=== PATIENT | male | born 1950 | race Caucasian/White ===

== ENCOUNTER 2021-02-19 10:57 | Outpatient (REF) | payer MEDICARE, SELFPAY ==
[2021-02-19 13:13] LABS: Erythrocyte Sedimentation Rate 6 MM/HR (0-15)
[2021-02-19 13:34] LABS: T4 Thyroxine 5.5 ug/dL (4.5-12.0); Thyroid Stimulating Hormone 2.41 uIU/mL (0.32-4.0)
[2021-02-24 17:02] LABS: Acetylcholine Recep Modulating 11
[2021-02-24 18:17] LABS: Acetylcholine Receptor Binding <0.30 nmol/L
== END 2021-02-19 10:58 | disposition home or self-care (01) ==
LOC: HO.LAB 10:57
PROVIDERS: PCP Internal Medicine; Visit Provider Psychiatry & Neurology Neurology
DX: H02.409 Unspecified ptosis of unspecified eyelid (principal)
CPT/HCPCS: 36415; 82550; 83519; 84436; 84443; 85652

== ENCOUNTER 2022-01-23 15:32 | Outpatient (REF) | payer MEDICARE, SELFPAY ==
[2022-01-23 18:14] LABS: Alanine Aminotransferase 20 U/L (0-40); Albumin Level 3.7 g/dL (3.5-5.0); Alkaline Phosphatase 83 U/L (39-117); Anion Gap 12 (12-20); Aspartate Amino Transferase 19 U/L (5-37); Bilirubin Direct 0.2 mg/dL (0.0-0.5); Bilirubin Total 0.4 mg/dL (0.0-1.0); Blood Urea Nitrogen 23 mg/dL (9-16); Calcium 9.1 mg/dL (8.4-10.2); Carbon Dioxide 28 mmol/L (22-29); Chloride 105 mmol/L (96-108); Estimated Glomerular Filt Rate > 60; Glucose Random 149 mg/dL (60-115); Potassium 4.2 mmol/L (3.3-5.1); Sodium 141 mmol/L (135-145); Total Protein 6.9 g/dL (6.5-8.0)
== END 2022-01-23 15:33 | disposition home or self-care (01) ==
LOC: HO.MANLDS 15:32
PROVIDERS: PCP Physician Assistant; Visit Provider Physician Assistant
DX: R17 Unspecified jaundice (principal)
CPT/HCPCS: 36415; 80053; 82248

== ENCOUNTER 2022-03-20 12:03 | Outpatient (REF) | payer MEDICARE, SELFPAY ==
[2022-03-20 12:51] LABS: Hematocrit 38.3 % (42.0-52.0); Hemoglobin 12.4 g/dl (14.0-18.0); Mean Corpuscular HGB Conc 32.4 g/dl (31.0-36.0); Mean Corpuscular Hemoglobin 27.8 pg (27.0-33.0); Mean Corpuscular Volume 85.9 fL (80.0-98.0); Mean Platelet Volume 9.5 fL (9.4-12.4); Platelet Count 231 X10*3/uL (160-400); Red Blood Count 4.46 X10*6/uL (4.60-5.80); Red Cell Distribution Width 15.5 % (11.0-16.0); White Blood Count 5.8 X10*3/uL (4.8-10.8)
[2022-03-20 13:20] LABS: Estimated Average Glucose 171 mg/dL; Hemoglobin A1c % 7.6 %
[2022-03-20 13:58] LABS: Alanine Aminotransferase 20 U/L (0-40); Alkaline Phosphatase 79 U/L (39-117); Anion Gap 14 (12-20); Aspartate Amino Transferase 20 U/L (5-37); Bilirubin Total 0.3 mg/dL (0.0-1.0); Blood Urea Nitrogen 32 mg/dL (9-16); Calcium 9.9 mg/dL (8.4-10.2); Carbon Dioxide 23 mmol/L (22-29); Chloride 105 mmol/L (96-108); Estimated Glomerular Filt Rate > 60; Glucose Random 133 mg/dL (60-115); Potassium 4.4 mmol/L (3.3-5.1); Sodium 138 mmol/L (135-145); Total Protein 7.1 g/dL (6.5-8.0)
[2022-03-20 14:38] LABS: Erythrocyte Sedimentation Rate 48 MM/HR (0-15)
== END 2022-03-20 12:04 | disposition home or self-care (01) ==
LOC: HO.MANLDS 12:03
PROVIDERS: PCP Internal Medicine; Visit Provider Internal Medicine
DX: E11.9 Type 2 diabetes mellitus without complications (principal); I10 Essential (primary) hypertension
CPT/HCPCS: 36415; 80053; 83036; 85027; 85652

== ENCOUNTER → 2022-04-27 08:24 | Outpatient (REF) | payer MEDICARE, SELFPAY ==
--- NOTE | 2022-04-27 08:30 | CA_ITS ---
Transthoracic Echocardiogram Amended Patient (Last, First, Middle): Stephane Guerrero, Gender: Male Date of : 1950 Age: 71 Procedure Date: 04/27/2022 Procedure Type: Transthoracic Echocardiogram Location: OP Height: 185.42 cm Weight: 136.08 kg BSA: 2.56 m2 Heart Rate: bpm BP: 138 / 80 mmHg Swedish Masseuse: ALMAZ Referring MD: Mandi SNOW Community Outreach Specialist: Mac Irizarry MD Symptoms: R01.1 MURMUR Study Quality: Adequate ECG Rhythm: Sinus Conclusions: - 1. Normal LV systolic function with moderate LVH with pseudonormal filling pattern 2. Mildly dilated left atrium 3. Severe aortic stenosis valve area 0.9 centimeter sq 4. Normal RV systolic pressure 5. No gross pericardial effusion Findings Left Ventricle Normal left ventricular size and systolic function. There is moderately increased left ventricular wall thickness. The visually estimated ejection fraction is between 60-65%. Spectral Doppler is indicative of a pseudonormal filling pattern. E/E prime ratio is between 8 and 15 consistent with indeterminate filling pressures. Right Ventricle Normal right ventricular cavity size and systolic function. Atria The left atrium is mildly dilated. There is lipomatous hypertrophy of the interatrial septum. There is no evidence of interatrial shunt. The right atrium is normal in size. Aortic Valve There is moderate calcification of the aortic valve. There is moderate thickening of the aortic valve. There is severe aortic valve stenosis. The mean gradient is 42 mmHg. The aortic valve area is 0.90 cm2. There is no aortic valve regurgitation. Calculated mean gradient of 45 mmHg which is more suggestive of severe aortic stenosis. LVOT velocity measured is high, could be related to measurement close to the aortic valve leading to falsely elevated LVOT VTI and therefore underestimated severity of aortic stenosis. Other possible reason could be high output state, of unclear etiology Mitral Valve There is mild anterior and posterior mitral leaflet thickening. There is trace mitral valve regurgitation. There is no mitral valve stenosis. Pulmonic Valve The pulmonic valve was not well visualized. Tricuspid Valve Normal tricuspid valve structure. There is trace tricuspid valve regurgitation. The right ventricular systolic pressure is normal. The right ventricular systolic pressure is 23 mmHg. Normal right atrial pressure. There is no evidence of pulmonary hypertension. Great Vessels All visible segments of the aorta are normal in size. The pulmonary artery was not well visualized. Venous The inferior vena cava is normal in size and collapses greater than 50% with inspiration. Pericardium/Pleural There is no evidence of pericardial effusion. Measurements 2D Linear Measurements IVSd: 1.52 0.6-0.9/0.6-1.0 cm LVIDd: 5.80 3.9-5.3/4.2-5.9 cm LVIDd Index: 2.27 2.4-3.2/2.2-3.1 cm/m2 LVIDs: 3.75 2.0-3.6 cm LVPWd: 1.41 0.7-1.1 cm Ao Root: 3.90 2.1-3.5 cm LA Diam: 4.40 2.7-3.8/3.0-4.0 cm LAIDs Index: 1.72 1.5-2.3 cm/m2 LV Mass: 489.04 67-162/88-224 g LV Mass Index: 191.03 43-95/49-115 g/m2 LVOT Diam: 2.00 3.0+(-)1.3 cm 2D Volumes LA Vol: 35.50 Mitral Valve MV Pk E: 1.20 MV PK A: 0.81 MV Decel Time: 161.00 E/A: 1.50 E'Lateral: 4.24 E'Medial: 4.57 E/E' Med: 26.30 E/E' Lat: 28.30 PHT: 47.00 MVA PHT: 4.68 Decel [place]: 7.46 Aortic Valve AoV Pk Chuck: 4.44 AoV Mn Chuck: 3.05 AoV VTI: 1.06 AoV Pk Grad: 79.00 Aov Mn Grad: 42.00 SHERRY Cont.VTI: 0.90 LVOT LVOT Pk Chuck: 1.36 LVOT Mn Chuck: 0.99 LVOT VTI: 0.38 LVOT Pk Grad: 7.00 LVOT Mn Grad: 4.00 LVOT Diam: 2.00 LVOT Area: 3.80 Diastolic Function MV Pk E: 1.20 MV Pk A: 0.81 E/A: 1.50 E'Medial: 4.57 E/E' Med: 26.30 E' Laterial: 4.24 E/E' Lat: 28.30 Right Ventricle TAPSE (mm): 30.00 TVS' Chuck: 14.00 Tricuspid Valve TR Pk Chuck: 2.22 TR Pk Grad: 20.00 RA Press: 3.00 RVSP: 23.00 Great Vessels Aorta Ao Root-2D: 3.90 2.0-3.7 cm Ao Asc: 3.60 2.1-3.4 cm Pulmonary Valve PV Pk Chuck: 1.10 Peak PV Grad: 5.00 Updated in Other Vendor System with Status of Final Mac Irizarry MD electronically signed on 04/29/2022 8:34:07 AM with status of Final
== END ==
LOC: HO.CARD 08:24
PROVIDERS: Visit Provider Physician Assistant
DX: R01.1 Cardiac murmur, unspecified (principal)
CPT/HCPCS: 93306

== ENCOUNTER 2022-05-01 14:34 | Outpatient (REF) | payer MEDICARE, SELFPAY ==
[2022-05-01 16:29] LABS: Hematocrit 35.7 % (42.0-52.0); Hemoglobin 11.7 g/dl (14.0-18.0); Mean Corpuscular HGB Conc 32.8 g/dl (31.0-36.0); Mean Corpuscular Hemoglobin 27.9 pg (27.0-33.0); Mean Platelet Volume 9.1 fL (9.4-12.4); Platelet Count 218 X10*3/uL (160-400); Red Cell Distribution Width 15.9 % (11.0-16.0); White Blood Count 7.3 X10*3/uL (4.8-10.8)
[2022-05-01 16:59] LABS: Anion Gap 12 (12-20); Blood Urea Nitrogen 24 mg/dL (9-16); Calcium 9.5 mg/dL (8.4-10.2); Carbon Dioxide 25 mmol/L (22-29); Chloride 107 mmol/L (96-108); Estimated Glomerular Filt Rate > 60; Glucose Random 83 mg/dL (60-115); Potassium 4.4 mmol/L (3.3-5.1); Sodium 140 mmol/L (135-145)
[2022-05-01 17:02] LABS: INTERNATIONAL NORM RATIO 1.1 (0.9-1.1); Prothrombin Time 12.4 SEC (9.9-13.0)
== END 2022-05-01 14:35 | disposition home or self-care (01) ==
LOC: HO.LAB 14:34
PROVIDERS: PCP Internal Medicine; Visit Provider Internal Medicine Cardiovascular Disease
DX: I35.0 Nonrheumatic aortic (valve) stenosis (principal)
CPT/HCPCS: 36415; 80048; 85027; 85610; 93005; 99202

== ENCOUNTER 2022-05-16 14:56 | Outpatient (REF) | payer MEDICARE, SELFPAY ==
[2022-05-16 15:56] LABS: Anion Gap 12 (12-20); Blood Urea Nitrogen 38 mg/dL (9-16); Calcium 9.7 mg/dL (8.4-10.2); Carbon Dioxide 26 mmol/L (22-29); Chloride 106 mmol/L (96-108); Estimated Glomerular Filt Rate > 60; Glucose Random 108 mg/dL (60-115); Potassium 4.4 mmol/L (3.3-5.1); Sodium 140 mmol/L (135-145)
[2022-05-16 16:03] LABS: B Type Natriuretic Peptide 95 pg/mL (<100)
== END 2022-05-16 14:57 | disposition home or self-care (01) ==
LOC: HO.LAB 14:56
PROVIDERS: PCP Internal Medicine; Visit Provider Nurse Practitioner Family
DX: I35.0 Nonrheumatic aortic (valve) stenosis (principal); I10 Essential (primary) hypertension; I25.10 Atherosclerotic heart disease of native coronary artery without angina pectoris; R06.02 Shortness of breath; Z98.890 Other specified postprocedural states
CPT/HCPCS: 36415; 80048; 83880; 99212

== ENCOUNTER 2022-07-30 11:17 | Outpatient (REF) | payer MEDICARE, SELFPAY ==
[2022-07-30 14:35] LABS: Alanine Aminotransferase 23 U/L (0-40); Albumin Level 3.8 g/dL (3.5-5.0); Alkaline Phosphatase 102 U/L (39-117); Anion Gap 16 (12-20); Aspartate Amino Transferase 17 U/L (5-37); Bilirubin Total 0.4 mg/dL (0.0-1.0); Blood Urea Nitrogen 51 mg/dL (9-16); Calcium 9.1 mg/dL (8.4-10.2); Carbon Dioxide 25 mmol/L (22-29); Chloride 101 mmol/L (96-108); Estimated Glomerular Filt Rate 40; Glucose Random 126 mg/dL (60-115); Potassium 4.9 mmol/L (3.3-5.1); Sodium 137 mmol/L (135-145); Total Protein 6.9 g/dL (6.5-8.0)
== END 2022-07-30 11:18 | disposition home or self-care (01) ==
LOC: HO.MANLDS 11:17
PROVIDERS: Visit Provider Internal Medicine
DX: I50.9 Heart failure, unspecified (principal)
CPT/HCPCS: 36415; 80053

== ENCOUNTER → 2022-08-20 08:31 | Outpatient (BNVA) | payer MEDICARE, SELFPAY | PROVIDERS: PCP Internal Medicine; Visit Provider Internal Medicine Cardiovascular Disease | DX: I35.0 Nonrheumatic aortic (valve) stenosis (principal); I50.20 Unspecified systolic (congestive) heart failure; I25.5 Ischemic cardiomyopathy; I25.10 Atherosclerotic heart disease of native coronary artery without angina pectoris; I25.2 Old myocardial infarction; Z95.810 Presence of automatic (implantable) cardiac defibrillator; Z79.899 Other long term (current) drug therapy | CPT/HCPCS: 99212 ==

== ENCOUNTER → 2022-10-10 14:48 | Outpatient (REF) | payer MEDICARE, SELFPAY ==
--- NOTE | 2022-10-10 14:54 | CA_ITS ---
Transthoracic Echocardiogram Patient (Last, First, Middle): Stephane Guerrero, Gender: Male Date of : 1950 Age: 72 Procedure Date: 10/10/2022 Procedure Type: Transthoracic Echocardiogram Location: OP Height: 185.42 cm Weight: 129.28 kg BSA: 2.50 m2 Heart Rate: bpm BP: 132 / 75 mmHg Sterilization Specialist: KIANNA Referring MD: Mac Irizarry MD Lacing Cutter: Mac Irizarry MD Symptoms: I25.10 - Atherosclerotic heart disease of [place] coronary artery without... Study Quality: Fair ECG Rhythm: Sinus Conclusions: - 1. Severe LV systolic dysfunction with LVEF of 15-20% with grade 3 diastolic dysfunction with regional wall motion abnormality consistent with ischemic cardiomyopathy 2. Normally function bioprosthetic aortic valve in place 3. Mildly elevated right went systolic pressure with significantly elevated right atrial pressures 4. No gross pericardial effusion Findings Procedure Information Contrast agent, definity, is being given per protocol without apparent complications. Left Ventricle Moderately increased left ventricular cavity size. There is mildly increased left ventricular wall thickness. The left ventricular systolic function is severely decreased. The visually estimated ejection fraction is between 15 20%. Spectral Doppler is indicative of a restrictive filling pattern. E/E prime ratio is >15, consistent with elevated filling pressures. Evidence suggests grade III (severe) diastolic dysfunction. Wall Motion Rest Echo Findings The basal inferoseptal segment is hypokinetic. The apical anterior, apical inferior, apical lateral, apical septum, mid inferoseptal, and mid anteroseptal segments are akinetic. The apex segment is dyskinetic. All other scored wall segments showed normal motion. Right Ventricle Normal right ventricular cavity size and systolic function. There is an ICD wire seen in the right ventricle. Atria The left atrium is mildly dilated. Interatrial shunt cannot be excluded. The right atrium is normal in size. Aortic Valve A bioprosthetic aortic valve is present. The prosthetic aortic valve appears to be functioning normally. The mean gradient is 9 mmHg. There is mild aortic valve regurgitation. Mitral Valve There is mild anterior and posterior mitral leaflet thickening. There is mild mitral annular calcification. There is mild mitral valve regurgitation. There is no mitral valve stenosis. Pulmonic Valve The pulmonic valve was not well visualized. Tricuspid Valve Likely normal tricuspid valve structure and function. There is mild tricuspid valve regurgitation. Significantly elevated right atrial pressure. Mild pulmonary hypertension is present. Great Vessels All visible segments of the aorta are normal in size. The pulmonary artery was not well visualized. Venous The inferior vena cava is moderately dilated and collapses less than 50% with inspiration. Pericardium/Pleural There is no evidence of pericardial effusion. Prior Study Comparison Significant changes compared to prior study dated: 04/27/2022. severely reduced LV ejection fraction at 15-20% with grade 3 diastolic dysfunction. Bioprosthetic aortic valve in place Measurements 2D Linear Measurements IVSd: 1.30 0.6-0.9/0.6-1.0 cm LVIDd: 6.33 3.9-5.3/4.2-5.9 cm LVIDd Index: 2.53 2.4-3.2/2.2-3.1 cm/m2 LVIDs: 4.58 2.0-3.6 cm LVPWd: 1.24 0.7-1.1 cm LA Diam: 4.30 2.7-3.8/3.0-4.0 cm LAIDs Index: 1.72 1.5-2.3 cm/m2 LV Mass: 462.00 67-162/88-224 g LV Mass Index: 184.80 43-95/49-115 g/m2 LVOT Diam: 2.00 3.0+(-)1.3 cm 2D Systolic Function EF 4C: 13.20 >55% EF 2C: 18.80 >55% EF BiP: 16.50 >55% Mitral Valve MV Pk E: 1.41 MV PK A: 0.51 MV Decel Time: 167.00 E/A: 2.80 E'Lateral: 6.45 E'Medial: 4.43 E/E' Med: 31.80 E/E' Lat: 21.90 PHT: 49.00 MVA PHT: 4.49 Decel [place]: 8.44 Aortic Valve AoV Pk Chuck: 1.99 AoV Mn Chuck: 1.36 AoV VTI: 0.45 AoV Pk Grad: 16.00 Aov Mn Grad: 9.00 SHERRY Cont.VTI: 1.81 LVOT LVOT Pk Chuck: 1.13 LVOT Mn Chuck: 0.77 LVOT VTI: 0.26 LVOT Pk Grad: 5.00 LVOT Mn Grad: 3.00 LVOT Diam: 2.00 LVOT Area: 3.14 Diastolic Function MV Pk E: 1.41 MV Pk A: 0.51 E/A: 2.80 E'Medial: 4.43 E/E' Med: 31.80 E' Laterial: 6.45 E/E' Lat: 21.90 Right Ventricle TAPSE (mm): 19.00 TVS' Chuck: 9.00 Tricuspid Valve TR Pk Chuck: 2.65 TR Pk Grad: 28.00 RA Press: 15.00 RVSP: 43.00 Updated in Other Vendor System with Status of Final Mac Irizarry MD electronically signed on 10/11/2022 4:56:29 PM with status of Final
== END ==
LOC: HO.CARD 14:48
PROVIDERS: Visit Provider Internal Medicine Cardiovascular Disease
DX: I25.10 Atherosclerotic heart disease of native coronary artery without angina pectoris (principal)
CPT/HCPCS: 93306; Q9957

== ENCOUNTER → 2022-11-13 13:08 | Outpatient (BNVA) | payer MEDICARE, SELFPAY | PROVIDERS: PCP Internal Medicine; Visit Provider Internal Medicine Cardiovascular Disease | DX: I25.10 Atherosclerotic heart disease of native coronary artery without angina pectoris (principal); I50.20 Unspecified systolic (congestive) heart failure; Z95.2 Presence of prosthetic heart valve; I25.2 Old myocardial infarction; Z79.02 Long term (current) use of antithrombotics/antiplatelets; Z79.899 Other long term (current) drug therapy; Z45.02 Encounter for adjustment and management of automatic implantable cardiac defibrillator | CPT/HCPCS: 99212 ==

== ENCOUNTER → 2023-05-12 14:26 | Outpatient (BNVA) | payer MEDICARE, SELFPAY | PROVIDERS: PCP Internal Medicine; Referring Provider Internal Medicine; Visit Provider Internal Medicine Cardiovascular Disease | DX: I50.20 Unspecified systolic (congestive) heart failure (principal); I48.0 Paroxysmal atrial fibrillation; I25.10 Atherosclerotic heart disease of native coronary artery without angina pectoris; I11.0 Hypertensive heart disease with heart failure; E13.9 Other specified diabetes mellitus without complications; Z95.5 Presence of coronary angioplasty implant and graft; Z79.4 Long term (current) use of insulin; Z95.810 Presence of automatic (implantable) cardiac defibrillator | CPT/HCPCS: 93005; 99212 ==

== ENCOUNTER → 2023-08-18 23:59 | Outpatient (BNV) | payer MEDICARE, SELFPAY ==
--- NOTE | 2023-08-18 15:38 | MHC.OFFVIS ---
Intake Intake Visit Reasons: Remote ICD check- [employer] Allergies No Known Allergies Allergy (Verified 05/12/23 15:06) [facility] Medical History Aortic stenosis CAD (coronary artery disease) Diabetes 1.5, managed as type 1 HTN (hypertension) ICD (implantable cardioverter-defibrillator) in place Ischemic cardiomyopathy Paroxysmal atrial fibrillation Surgical History History of ankle surgery S/P cardiac cath Status post transcatheter aortic valve replacement Stented coronary artery Family History Father Pacemaker Mother Diabetes Social History Patient Tobacco Use Status: Former Tobacco user Quit Date: 30 years ago Office Procedures Cardiac Device Check Cardiac Device Check Details: Remote ICD function report generated 08/18/2023. ICD function is adequate [id number] Cardiac Interrogation, implant defibrillator w/interim Procedure code (CPT) selection complete Coding Level of Care Code Procedure Only CPT Codes Cardiac Device Check - Cardiac Device 13: [id number] Cardiac Interrogation, implant defibrillator w/interim ([id number])
== END ==
PROVIDERS: PCP Internal Medicine; Visit Provider Internal Medicine Cardiovascular Disease
DX: I25.5 Ischemic cardiomyopathy (principal); Z95.810 Presence of automatic (implantable) cardiac defibrillator
CPT/HCPCS: 93295

== ENCOUNTER → 2023-08-18 23:59 | Outpatient (BNV) | payer MEDICARE, SELFPAY ==
--- NOTE | 2023-08-18 15:39 | MHC.OFFVIS ---
Intake Intake Visit Reasons: Remote HF monitoring- [employer] Allergies No Known Allergies Allergy (Verified 05/12/23 15:06) [facility] Medical History Aortic stenosis CAD (coronary artery disease) Diabetes 1.5, managed as type 1 HTN (hypertension) ICD (implantable cardioverter-defibrillator) in place Ischemic cardiomyopathy Paroxysmal atrial fibrillation Surgical History History of ankle surgery S/P cardiac cath Status post transcatheter aortic valve replacement Stented coronary artery Family History Father Pacemaker Mother Diabetes Social History Patient Tobacco Use Status: Former Tobacco user Quit Date: 30 years ago Office Procedures Cardiac Device Check Cardiac Device Check Details: Remote heart failure report generated 08/18/2023. Heart failure parameters are stable [id number] Cardiac Device Interrogation, cardio physiologic monitor Procedure code (CPT) selection complete Coding Level of Care Code Procedure Only CPT Codes Cardiac Device Check - Cardiac Device 15: [id number] Cardiac Device Interrogation, cardio physiologic monitor ([id number])
== END ==
PROVIDERS: PCP Internal Medicine; Visit Provider Internal Medicine Cardiovascular Disease
DX: I50.20 Unspecified systolic (congestive) heart failure (principal); Z95.810 Presence of automatic (implantable) cardiac defibrillator
CPT/HCPCS: 93297

== ENCOUNTER → 2023-09-30 13:02 | Outpatient (REF) | payer MEDICARE, SELFPAY ==
--- NOTE | 2023-09-30 13:04 | CA_ITS ---
Transthoracic Echocardiogram Patient (Last, First, Middle): Stephane Guerrero, Gender: Male Date of : 1950 Age: 73 Procedure Date: 09/30/2023 Procedure Type: Transthoracic Echocardiogram Location: OP Height: 185.42 cm Weight: 145.15 kg BSA: 2.63 m2 Heart Rate: 69 bpm BP: 125 / 70 mmHg Billing Supervisor: JULIA Referring MD: Mac Irizarry MD Digital Camera Technician: Mac Irizarry MD Symptoms: Z95.2 - Presence of prosthetic heart valve Study Quality: Technically Difficult/w Contrast ECG Rhythm: Sinus Conclusions: - 1. Mildly dilated left ventricle with [id number] LV systolic dysfunction with grade 2 diastolic dysfunction with presence of LV apical thrombus 2. Normally function bioprosthetic aortic valve with mean gradient of 16 mmHg 3. Mildly dilated ascending aorta 3.9 cm Findings Procedure Information Contrast agent, definity, is being given per protocol without apparent complications. Left Ventricle Mildly increased left ventricular cavity size. There is moderately increased left ventricular wall thickness. The left ventricular systolic function is mild to moderately decreased. The visually estimated ejection fraction is between 40-45%. There is evidence of regional wall motion abnormalities. Spectral Doppler is indicative of a pseudonormal filling pattern. E/E prime ratio is >15, consistent with elevated filling pressures. Evidence suggests grade II (moderate) diastolic dysfunction. There is a moderate immobile apical thrombus in the left ventricle. The thrombus appears flat (mural) in shape. Wall Motion Rest Echo Findings The apex, apical anterior, mid anterior, apical lateral, apical septum, and mid anteroseptal segments are akinetic. All other scored wall segments showed normal motion. Right Ventricle The right ventricle was not well visualized. Atria The left atrium was not well visualized. Interatrial shunt cannot be excluded. The right atrium was not well visualized. Aortic Valve A bioprosthetic aortic valve is present. The prosthetic aortic valve appears to be functioning normally. The aortic valve was not well visualized. The mean gradient is 16 mmHg. There is no aortic valve regurgitation. Mitral Valve The mitral valve was not well visualized. There is moderate mitral annular calcification. There is no mitral valve stenosis. Pulmonic Valve The pulmonic valve was not well visualized. Tricuspid Valve The tricuspid valve was not well visualized. Tricuspid regurgitation envelope is inadequate for calculation of right ventricular systolic pressure. Normal right atrial pressure. Great Vessels The pulmonary artery was not well visualized. There is mild dilatation of the ascending aorta. Venous The inferior vena cava is normal in size and collapses greater than 50% with inspiration. Pericardium/Pleural The pericardium was not well visualized. Prior Study Comparison Changes noted compared to prior study dated: 10/10/2022. LV systolic function has improved significantly Measurements 2D Linear Measurements IVSd: 1.32 0.6-0.9/0.6-1.0 cm LVIDd: 6.04 3.9-5.3/4.2-5.9 cm LVIDd Index: 2.30 2.4-3.2/2.2-3.1 cm/m2 LVIDs: 3.93 2.0-3.6 cm LVPWd: 1.42 0.7-1.1 cm LA Diam: 4.50 2.7-3.8/3.0-4.0 cm LAIDs Index: 1.71 1.5-2.3 cm/m2 LV Mass: 474.75 67-162/88-224 g LV Mass Index: 180.51 43-95/49-115 g/m2 LVOT Diam: 2.00 3.0+(-)1.3 cm 2D Systolic Function EF 4C: 49.40 >55% EF 2C: 32.60 >55% EF BiP: 41.40 >55% Mitral Valve MV Pk E: 0.97 MV PK A: 0.90 MV Decel Time: 225.00 E/A: 1.10 E'Lateral: 7.53 E'Medial: 6.13 E/E' Med: 15.90 E/E' Lat: 12.90 PHT: 66.00 MVA PHT: 3.33 Decel [place]: 4.31 Aortic Valve AoV Pk Chuck: 2.63 AoV Mn Chuck: 1.83 AoV VTI: 0.52 AoV Pk Grad: 28.00 Aov Mn Grad: 16.00 SHERRY Cont.VTI: 2.02 LVOT LVOT Pk Chuck: 1.64 LVOT Mn Chuck: 1.14 LVOT VTI: 0.33 LVOT Pk Grad: 11.00 LVOT Mn Grad: 6.00 LVOT Diam: 2.00 LVOT Area: 3.14 Diastolic Function MV Pk E: 0.97 MV Pk A: 0.90 E/A: 1.10 E'Medial: 6.13 E/E' Med: 15.90 E' Laterial: 7.53 E/E' Lat: 12.90 Right Ventricle TAPSE (mm): 19.50 TVS' Chuck: 11.90 Tricuspid Valve RA Press: 3.00 Great Vessels Aorta Sinus of Valsalva: 4.10 2.0-3.5 cm Ao Asc: 3.90 2.1-3.4 cm Pulmonary Valve PV Pk Chuck: 1.52 Peak PV Grad: 9.00 Updated in Other Vendor System with Status of Final Mac Irizarry MD electronically signed on 10/01/2023 3:21:53 PM with status of Final
== END ==
LOC: HO.CARD 13:02
PROVIDERS: PCP Internal Medicine; Visit Provider Internal Medicine Cardiovascular Disease
DX: I48.0 Paroxysmal atrial fibrillation (principal); I50.20 Unspecified systolic (congestive) heart failure; Z95.2 Presence of prosthetic heart valve
CPT/HCPCS: 93306; Q9957

== ENCOUNTER → 2023-09-30 13:04 | Outpatient (BNV) | payer MEDICARE, SELFPAY | PROVIDERS: PCP Internal Medicine; Visit Provider Internal Medicine Cardiovascular Disease | DX: I48.0 Paroxysmal atrial fibrillation (principal); I34.81 Nonrheumatic mitral (valve) annulus calcification | CPT/HCPCS: 93306 ==

== ENCOUNTER → 2023-10-13 23:59 | Outpatient (BNV) | payer MEDICARE, SELFPAY ==
--- NOTE | 2023-10-14 15:01 | MHC.OFFVIS ---
Intake Intake Visit Reasons: Remote HF Monitoring- [employer] Allergies No Known Allergies Allergy (Verified 05/12/23 15:06) [facility] Medical History Aortic stenosis CAD (coronary artery disease) Diabetes 1.5, managed as type 1 HTN (hypertension) ICD (implantable cardioverter-defibrillator) in place Ischemic cardiomyopathy Paroxysmal atrial fibrillation Surgical History History of ankle surgery S/P cardiac cath Status post transcatheter aortic valve replacement Stented coronary artery Family History Father Pacemaker Mother Diabetes Patient Tobacco Use Status: Former Tobacco user Quit Date: 30 years ago Office Procedures Cardiac Device Check Cardiac Device Check Details: Remote heart failure report generated 10/12/2023. Heart failure parameters shows elevated heart logic consistent with fluid buildup. Will follow-up with patient with diuretic therapy. [id number] Cardiac Interrogation, subcut cardiac rhythm monitor Procedure code (CPT) selection complete Coding Level of Care Code Procedure Only CPT Codes Cardiac Device Check - Cardiac Device 16: [id number] Cardiac Interrogation, subcut cardiac rhythm monitor ([id number])
== END ==
PROVIDERS: PCP Internal Medicine; Visit Provider Internal Medicine Cardiovascular Disease
DX: I50.20 Unspecified systolic (congestive) heart failure (principal); Z95.810 Presence of automatic (implantable) cardiac defibrillator
CPT/HCPCS: 93297

== ENCOUNTER → 2023-12-20 23:59 | Outpatient (BNV) | payer MEDICARE, SELFPAY ==
--- NOTE | 2023-12-22 16:54 | MHC.OFFVIS ---
Intake Intake Visit Reasons: Remote HF Monitoring- [employer] Allergies No Known Allergies Allergy (Verified 05/12/23 15:06) [facility] Medical History Aortic stenosis CAD (coronary artery disease) Diabetes 1.5, managed as type 1 HTN (hypertension) ICD (implantable cardioverter-defibrillator) in place Ischemic cardiomyopathy Paroxysmal atrial fibrillation Surgical History History of ankle surgery S/P cardiac cath Status post transcatheter aortic valve replacement Stented coronary artery Family History Father Pacemaker Mother Diabetes Social History Patient Tobacco Use Status: Former Tobacco user Quit Date: 30 years ago Office Procedures Cardiac Device Check Cardiac Device Check Details: Remote heart failure report generated 12/20/2023. Heart failure parameters are stable [id number] Cardiac Device Interrogation, cardio physiologic monitor Procedure code (CPT) selection complete Assessment & Plan Assessment & Plan (1) ICD (implantable cardioverter-defibrillator) in place: Comment: [employer] ICD in place for what appears to be heart block has reduced ejection fraction. Code(s): Z95.810 - Presence of automatic (implantable) cardiac defibrillator Plan: See above Coding Level of Care Code Procedure Only Diagnoses ICD (implantable cardioverter-defibrillator) in place Z95.810 CPT Codes Cardiac Device Check - Cardiac Device 15: [id number] Cardiac Device Interrogation, cardio physiologic monitor ([id number])
== END ==
PROVIDERS: PCP Internal Medicine; Visit Provider Internal Medicine Cardiovascular Disease
DX: I25.5 Ischemic cardiomyopathy (principal); Z95.810 Presence of automatic (implantable) cardiac defibrillator
CPT/HCPCS: 93297

== ENCOUNTER → 2024-02-24 23:59 | Outpatient (BNV) | payer MEDICARE, SELFPAY ==
--- NOTE | 2024-02-26 14:40 | A.OFFVIS_ITS ---
Intake Intake Visit Reasons: REmote HF monitoring- [employer] Allergies No Known Allergies Allergy (Verified 05/12/23 15:06) [facility] Medical History Aortic stenosis CAD (coronary artery disease) Diabetes 1.5, managed as type 1 HTN (hypertension) ICD (implantable cardioverter-defibrillator) in place Ischemic cardiomyopathy Paroxysmal atrial fibrillation Surgical History History of ankle surgery S/P cardiac cath Status post transcatheter aortic valve replacement Stented coronary artery Family History Father Pacemaker Mother Diabetes Social History Patient Tobacco Use Status: Former Tobacco user Quit Date: 30 years ago Office Procedures Cardiac Device Check Cardiac Device Check Details: Remote heart failure report generated 02/24/2024. Heart failure parameters are within normal limits [id number] Cardiac Device Interrogation, cardio physiologic monitor Procedure code (CPT) selection complete Assessment & Plan Assessment & Plan (1) ICD (implantable cardioverter-defibrillator) in place: Comment: [employer] ICD in place for what appears to be heart block has reduced ejection fraction. Code(s): Z95.810 - Presence of automatic (implantable) cardiac defibrillator Plan: See above Coding Level of Care Code Procedure Only Diagnoses ICD (implantable cardioverter-defibrillator) in place Z95.810 CPT Codes Cardiac Device Check - Cardiac Device 15: [id number] Cardiac Device Interrogation, cardio physiologic monitor ([id number])
== END ==
PROVIDERS: PCP Internal Medicine; Visit Provider Internal Medicine Cardiovascular Disease
DX: Z45.02 Encounter for adjustment and management of automatic implantable cardiac defibrillator (principal)
CPT/HCPCS: 93297

== ENCOUNTER → 2024-02-24 23:59 | Outpatient (BNV) | payer MEDICARE, SELFPAY ==
--- NOTE | 2024-02-26 14:39 | MHC.OFFVIS ---
Intake Intake Visit Reasons: Remote device chk- [employer] Allergies No Known Allergies Allergy (Verified 05/12/23 15:06) [facility] Medical History Aortic stenosis CAD (coronary artery disease) Diabetes 1.5, managed as type 1 HTN (hypertension) ICD (implantable cardioverter-defibrillator) in place Ischemic cardiomyopathy Paroxysmal atrial fibrillation Surgical History History of ankle surgery S/P cardiac cath Status post transcatheter aortic valve replacement Stented coronary artery Family History Father Pacemaker Mother Diabetes Social History Patient Tobacco Use Status: Former Tobacco user Quit Date: 30 years ago Office Procedures Cardiac Device Check Cardiac Device Check Details: Remote ICD report generated 02/24/2024. ICD function is adequate [id number] Cardiac Interrogation, implant defibrillator w/interim Procedure code (CPT) selection complete Assessment & Plan Assessment & Plan (1) ICD (implantable cardioverter-defibrillator) in place: Comment: [employer] ICD in place for what appears to be heart block has reduced ejection fraction. Code(s): Z95.810 - Presence of automatic (implantable) cardiac defibrillator Plan: See above Coding Level of Care Code Procedure Only Diagnoses ICD (implantable cardioverter-defibrillator) in place Z95.810 CPT Codes Cardiac Device Check - Cardiac Device 13: [id number] Cardiac Interrogation, implant defibrillator w/interim ([id number])
== END ==
PROVIDERS: PCP Internal Medicine; Visit Provider Internal Medicine Cardiovascular Disease
DX: Z45.02 Encounter for adjustment and management of automatic implantable cardiac defibrillator (principal)
CPT/HCPCS: 93295

== ENCOUNTER 2024-03-03 12:02 | Outpatient (REF) | payer MEDICARE, SELFPAY ==
[2024-03-03 17:45] LABS: MANUAL DIFF FLAG NO
[2024-03-03 17:53] LABS: Basophils Percent Auto 0.3 % (0-2); Eosinophils Absolute Auto 0.1 X10*3/uL (0.0-0.4); Eosinophils Percent Auto 1.3 % (0-4); Hematocrit 24.8 % (42.0-52.0); Hemoglobin 7.7 g/dl (14.0-18.0); Imm Gran Abs Auto 0.06 X10*3/uL (0.00-0.03); Imm Gran Pct Auto 0.8 % (0.0-0.4); Lymphocytes Absolute Auto 1.1 X10*3/uL (1.2-4.9); Lymphocytes Percent Auto 14.1 % (20-40); Mean Corpuscular Hemoglobin 28.1 pg (27.0-33.0); Mean Corpuscular Volume 90.5 fL (80.0-98.0); Mean Platelet Volume 8.8 fL (9.4-12.4); Monocytes Percent Auto 12.1 % (2-11); Neutrophils Absolute Auto 5.6 x10*3/uL (2.0-8.3); Neutrophils Percent Auto 71.4 % (45-73); Platelet Count 271 X10*3/uL (160-400); Red Blood Count 2.74 X10*6/uL (4.60-5.80); Red Cell Distribution Width 19.3 % (11.0-16.0); White Blood Count 7.9 X10*3/uL (4.8-10.8)
[2024-03-03 18:30] LABS: Alanine Aminotransferase 14 U/L (0-40); Albumin Level 3.6 g/dL (3.5-5.0); Alkaline Phosphatase 72 U/L (39-117); Anion Gap 14 (12-20); Aspartate Amino Transferase 18 U/L (5-37); Bilirubin Total 0.4 mg/dL (0.0-1.0); Blood Urea Nitrogen 63 mg/dL (9-16); C Reactive Protein 3.16 mg/dL (< or = 0.50); Calcium 9.8 mg/dL (8.4-10.2); Carbon Dioxide 30 mmol/L (22-29); Chloride 99 mmol/L (96-108); Estimated Glomerular Filt Rate 57; Glucose Random 195 mg/dL (60-115); Potassium 4.1 mmol/L (3.3-5.1); Sodium 139 mmol/L (135-145); Total Protein 7.7 g/dL (6.5-8.0)
[2024-03-03 18:42] LABS: Erythrocyte Sedimentation Rate 123 MM/HR (0-15)
== END 2024-03-03 12:03 | disposition home or self-care (01) ==
LOC: HO.MANLDS 12:02
PROVIDERS: Visit Provider Physician Assistant
DX: M86.31 Chronic multifocal osteomyelitis, shoulder (principal); E87.6 Hypokalemia
CPT/HCPCS: 36415; 80053; 85025; 85652; 86140

== ENCOUNTER → 2024-03-29 23:59 | Outpatient (BNV) | payer MEDICARE, SELFPAY ==
--- NOTE | 2024-03-31 16:09 | MHC.OFFVIS ---
Intake Visit Reasons: Remote HF monitoring0 [employer] Allergies No Known Allergies Allergy (Verified 05/12/23 15:06) [facility] Medical History Aortic stenosis CAD (coronary artery disease) Diabetes 1.5, managed as type 1 HTN (hypertension) ICD (implantable cardioverter-defibrillator) in place Ischemic cardiomyopathy Paroxysmal atrial fibrillation Surgical History History of ankle surgery S/P cardiac cath Status post transcatheter aortic valve replacement Stented coronary artery Family History Father Pacemaker Mother Diabetes Social History Patient Tobacco Use Status: Former Tobacco user Quit Date: 30 years ago Office Procedures Cardiac Device Check Cardiac Device Check Details: Remote heart failure report generated 03/29/2024. Heart failure parameters are stable [id number] Cardiac Device Interrogation, cardio physiologic monitor Procedure code (CPT) selection complete Assessment & Plan Assessment & Plan (1) ICD (implantable cardioverter-defibrillator) in place: Comment: [employer] ICD in place for what appears to be heart block has reduced ejection fraction. Code(s): Z95.810 - Presence of automatic (implantable) cardiac defibrillator Category: Medical Plan: See above Coding Level of Care Code Procedure Only Diagnoses ICD (implantable cardioverter-defibrillator) in place Z95.810 CPT Codes Cardiac Device Check - Cardiac Device 15: [id number] Cardiac Device Interrogation, cardio physiologic monitor ([id number])
== END ==
PROVIDERS: PCP Internal Medicine; Visit Provider Internal Medicine Cardiovascular Disease
DX: Z45.02 Encounter for adjustment and management of automatic implantable cardiac defibrillator (principal)
CPT/HCPCS: 93297

== ENCOUNTER 2024-08-09 13:12 | Outpatient (REF) | payer MEDICARE, SELFPAY ==
[2024-08-09 15:40] LABS: MANUAL DIFF FLAG NO
[2024-08-09 16:10] LABS: Basophils Percent Auto 0.2 % (0-2); Eosinophils Absolute Auto 0.1 X10*3/uL (0.0-0.4); Eosinophils Percent Auto 0.9 % (0-4); Hematocrit 24.6 % (42.0-52.0); Hemoglobin 7.4 g/dl (14.0-18.0); Imm Gran Abs Auto 0.05 X10*3/uL (0.00-0.03); Imm Gran Pct Auto 0.6 % (0.0-0.4); Lymphocytes Percent Auto 12.2 % (20-40); Mean Corpuscular HGB Conc 30.1 g/dl (31.0-36.0); Mean Corpuscular Hemoglobin 25.3 pg (27.0-33.0); Mean Platelet Volume 8.5 fL (9.4-12.4); Monocytes Absolute Auto 0.9 X10*3/uL (0.1-1.2); Monocytes Percent Auto 10.6 % (2-11); Neutrophils Absolute Auto 6.2 x10*3/uL (2.0-8.3); Neutrophils Percent Auto 75.5 % (45-73); Platelet Count 272 X10*3/uL (160-400); Red Blood Count 2.93 X10*6/uL (4.60-5.80); Red Cell Distribution Width 18.7 % (11.0-16.0); White Blood Count 8.2 X10*3/uL (4.8-10.8)
[2024-08-09 16:25] LABS: B Type Natriuretic Peptide 498 pg/mL (<100)
[2024-08-09 16:46] LABS: Alanine Aminotransferase 20 U/L (0-40); Albumin Level 3.4 g/dL (3.5-5.0); Alkaline Phosphatase 112 U/L (39-117); Anion Gap 12 (12-20); Aspartate Amino Transferase 14 U/L (5-37); Bilirubin Total 0.3 mg/dL (0.0-1.0); Blood Urea Nitrogen 57 mg/dL (9-16); Calcium 9.8 mg/dL (8.4-10.2); Carbon Dioxide 26 mmol/L (22-29); Chloride 106 mmol/L (96-108); Estimated Glomerular Filt Rate 44; Glucose Random 135 mg/dL (60-115); Sodium 139 mmol/L (135-145); Total Protein 8.1 g/dL (6.5-8.0)
== END 2024-08-09 13:13 | disposition home or self-care (01) ==
LOC: HO.LAB 13:12
PROVIDERS: PCP Internal Medicine; Visit Provider Nurse Practitioner Family
DX: I11.0 Hypertensive heart disease with heart failure (principal); I35.0 Nonrheumatic aortic (valve) stenosis; I48.0 Paroxysmal atrial fibrillation; I42.9 Cardiomyopathy, unspecified; I50.20 Unspecified systolic (congestive) heart failure; I25.10 Atherosclerotic heart disease of native coronary artery without angina pectoris; E11.9 Type 2 diabetes mellitus without complications; E78.5 Hyperlipidemia, unspecified; Z09 Encounter for follow-up examination after completed treatment for conditions other than malignant neoplasm; Z95.810 Presence of automatic (implantable) cardiac defibrillator; Z95.2 Presence of prosthetic heart valve
CPT/HCPCS: 36415; 80053; 83880; 85025; 99212

== ENCOUNTER 2024-08-09 13:12 | Outpatient (AMB) | payer MEDICARE, SELFPAY ==
--- NOTE | 2024-08-09 14:16 | A.OFFVIS_ITS ---
Vital Signs 08/09/24 14:21 BP 114/62 Blood Pressure Location Rt brachial Position Sitting Pulse 70 Pulse Source Pulse Oximeter Intake Visit Reasons: over due follow up device check Licensed Staff Mft Required: No Switch Operator: Switch Operator Present Allergies No Known Allergies Allergy (Verified 08/09/24 14:17) Medication List - Last Reconciled 08/09/24 by JAMEL Ramos apixaban (Eliquis) 5 mg PO BID atorvastatin 40 mg PO DAILY clopidogrel 75 mg PO DAILY dapagliflozin propanediol (Farxiga) 10 mg PO DAILY furosemide 60mg in the morning and 40mg in the afternoon orally 2 times a day; 90 days gabapentin 1,200 mg PO TID insulin glargine (Lantus Solostar U-100 Insulin) units subcut insulin lispro (Humalog KwikPen (U-100) Insulin) subcut metoprolol succinate ER 25 mg PO DAILY mirtazapine 15 mg PO BEDTIME pramipexole 0.5 mg PO trazodone 200 mg PO DAILY HPI HPI over due follow up device check: Details: Stephane is a 74-year-old male with past medical history of hypertension, diabetes, hyperlipidemia, aortic stenosis status post TAVR, CAD with LAD stent, ischemic cardiomyopathy, paroxysmal atrial fibrillation who was recently admitted to [facility] for ischemic stroke without residual affects. He was readmitted to [facility] 2 weeks ago with generalized weakness. He was treated for [place], UTI, gently hydrated and given antibiotics. His last prior visit to our office was 05/12/2023. Today he reports he has been doing well since his hospital discharge. Is mostly sedentary and is sitting in a wheelchair at this visit. He has some shortness of breath when trying to walk around his home. He ambulates only short distances. He has be toes amputated on his right foot and tells me that he will be needing a right BKA in the near future. He has tenderness and swelling in his right lower extremity. He tells me there is an open wound and infection in the bone as well. No chest discomfort at rest or with activity. He sleeps in a recliner with his head partially elevated. Intermittent cough is present. No palpitations, lightheadedness, presyncope, syncope, falls. He reports compliance with his medications. No bleeding issues reported. Friend is present. [facility] Medical History Paroxysmal atrial fibrillation ICD (implantable cardioverter-defibrillator) in place CAD (coronary artery disease) Ischemic cardiomyopathy Aortic stenosis Diabetes 1.5, managed as type 1 HTN (hypertension) Surgical History Status post transcatheter aortic valve replacement Stented coronary artery S/P cardiac cath History of ankle surgery Family History Father Pacemaker Mother Diabetes Social History Patient Tobacco Use Status: Former Tobacco user Review of Systems Const All systems reviewed & are unremarkable except as noted in HPI and below ENT Denies dizziness Card Denies chest pain, Denies chest pain at rest, Denies chest pain with activity, Denies rapid heart rate, Denies pedal edema, Denies edema, Reports leg edema (right > Left), Denies lightheadedness, Denies palpitations, Denies dyspnea, Reports dyspnea on exertion and Denies orthopnea Resp Reports cough, Denies dyspnea and Reports dyspnea on exertion GI Denies hematochezia and Denies change in stool character Musc Details: ambulates only short distances Reports abnormal gait, Denies limited range of motion, Denies muscle cramps, Denies muscle weakness, Denies numbness, Denies radiating pain into limb (pain right lower leg, wound on LE and tells me he needs a BKA), Denies stiffness and Denies tingling Neuro Reports abnormal gait, Denies dizziness, Denies numbness and Denies tingling Endo Denies palpitations Physical Exam Vital Signs: Last Vital Signs Pulse 70 08/09/24 14:21 BP 114/62 08/09/24 14:21 Const Other: sitting in wheelchair General: cooperative, comfortable and no acute distress Orientation/consciousness: patient oriented x3 Neck Neck: Yes normal visual inspection Resp Effort & Inspection: normal respiratory effort Auscultation: clear to auscultation bilaterally, crackles (each base), no rhonchi and no wheezes Cardio Rate: regular rate Rhythm: regular rhythm Heart sounds: S1 normal heart sound present, S2 normal heart sound present, no murmurs and no rubs Neuro General: patient oriented x3 Extrem Other: Left ankle swelling, right lower leg swelling, pitting from knee down Psych Appearance: grossly normal Mental Status: mental status grossly normal Speech and movement: Normal speech and movement present Office Procedures Cardiac Device Check Cardiac Device Check Details: [employer] dual-chamber ICD interrogation today shows battery 11.5 years, DDD mode, low rate 50, a paced 1%, V paced 8%, atrial threshold 0.8 volts at 0.4 milliseconds, RV threshold 0.5 volts at 0.4 milliseconds, events reviewed, heart logic 15, mild elevation, stable. [id number] Cardiac Device Check, dual lead implantable defibrillator Procedure code (CPT) selection complete Assessment & Plan Assessment & Plan (1) Heart failure with reduced ejection fraction: Code(s): I50.20 - Unspecified systolic (congestive) heart failure Category: Medical Plan: History of Heart failure with reduced ejection fraction secondary to severe ischemic cardiomyopathy. Last echo in our system 09/30/2023 shows EF 40-45%, grade 2 diastolic dysfunction, presence of LV apical thrombus, normally function bioprosthetic AVR. He had been on guideline directed medical therapy, neurohormonal modulation with metoprolol, Entresto and dapagliflozin. These meds are each still active on his recent [facility] discharge paperwork. He is not clear on all the meds he is taking. Was previously on Lasix however discharge summary now states torsemide 40 mg daily. He does appear mildly fluid overloaded on exam with rales in his bases and edema noted in each leg, right greater than left. Will check labs today including CMP, BNP. Reviewed daily weight monitoring if able, avoidance of salt discussed. No med changes made at this time. Plan to review labs and call him with results. (2) CAD (coronary artery disease): Code(s): I25.10 - Atherosclerotic heart disease of [place] coronary artery without angina pectoris Category: Medical Plan: History of CAD status post anterior STEMI with persistent severe ischemic cardiomyopathy. Lad stent was placed 05/2022. EF has improved with med management. He denies any anginal symptoms. Continue aggressive risk factor modification. Blood pressure is well optimized. Target goal blood pressure less than 130/84. Continue aggressive diabetes management with hemoglobin A1c goal less than 7. It has been over a year since his stent placement and Plavix can be discontinued. Continue high-intensity statin therapy with target goal LDL less than 70 mg/dL. (3) ICD (implantable cardioverter-defibrillator) in place: Comment: [employer] ICD in place for what appears to be heart block has reduced ejection fraction. Code(s): Z95.810 - Presence of automatic (implantable) cardiac defibrillator Category: Medical Plan: ICD in place for primary prevention. ICD interrogation today shows no VT VF/ICD therapies. Remote monitoring in use. Next office interrogation due in 6 caesar hs, sooner if needed. (4) Status post transcatheter aortic valve replacement: Code(s): Z95.2 - Presence of prosthetic heart valve Category: Surgical Plan: Status post transcatheter aortic valve replacement. Last echo 09/30/2023 showed normally function bioprosthetic aortic valve with mean gradient 16 mmHg. Continue full oral anticoagulation Eliquis in the terminal makeup operator. SBE prophylaxis as per ACC/aha guidelines. Continue aggressive vascular risk factor modification as above. (5) Paroxysmal atrial fibrillation: Code(s): I48.0 - Paroxysmal atrial fibrillation Category: Medical Plan: History of Paroxysmal atrial fibrillation without prolonged episodes. Device interrogation today shows 0% AT/ AF. Avoidance of stimulants was discussed. Continue oral anticoagulation therapy with Eliquis. Quarterly renal function test should be performed. Labs being checked today. (6) Hospital discharge follow-up: Code(s): Z09 - Encounter for follow-up examination after completed treatment for conditions other than malignant neoplasm Category: Medical Plan: As above Plan Time spent on chart review, documentation, interview and assessment Orders: Orders Comprehensive Met. Panel 08/09/24 I25.10 - Atherosclerotic heart disease of [place] coronary artery without angina pectoris Complete Blood Count Auto Diff 08/09/24 I50.20 - Unspecified systolic (congestive) heart failure B Type Natriuretic Peptide 08/09/24 I50.20 - Unspecified systolic (congestive) heart failure Medications: New sacubitril-valsartan 49-51 mg (Entresto) 1 tab PO BID 60 tabs 5RF Coding Level of Care Code Est Pt Level 4 (28408) Diagnoses Heart failure with reduced ejection fraction I50.20 CAD (coronary artery disease) I25.10 ICD (implantable cardioverter-defibrillator) in place Z95.810 Status post transcatheter aortic valve replacement Z95.2 Paroxysmal atrial fibrillation I48.0 Hospital discharge follow-up Z09 CPT Codes Cardiac Device Check - Cardiac Device 5: [id number] Cardiac Device Check, dual lead implantable defibrillator ([id number]) Time Spent (min) 36
[2024-08-09 14:21] VITALS: BP 114/62; PULSE 70
== END 2024-08-09 14:48 | disposition home or self-care (01) ==
PROVIDERS: PCP Internal Medicine; Referring Provider Internal Medicine; Visit Provider Nurse Practitioner Family
DX: Z45.02 Encounter for adjustment and management of automatic implantable cardiac defibrillator (principal)
CPT/HCPCS: 93283; 99214

== ENCOUNTER 2024-08-16 09:43 | Outpatient (REF) | payer MEDICARE, SELFPAY ==
[2024-08-16 10:02] LABS: MANUAL DIFF FLAG NO
[2024-08-16 10:12] LABS: Basophils Percent Auto 0.3 % (0-2); Eosinophils Absolute Auto 0.1 X10*3/uL (0.0-0.4); Eosinophils Percent Auto 1.2 % (0-4); Hematocrit 22.9 % (42.0-52.0); Hemoglobin 7.1 g/dl (14.0-18.0); Imm Gran Abs Auto 0.03 X10*3/uL (0.00-0.03); Imm Gran Pct Auto 0.5 % (0.0-0.4); Lymphocytes Absolute Auto 0.8 X10*3/uL (1.2-4.9); Lymphocytes Percent Auto 11.7 % (20-40); Mean Corpuscular Hemoglobin 26.4 pg (27.0-33.0); Mean Corpuscular Volume 85.1 fL (80.0-98.0); Mean Platelet Volume 8.2 fL (9.4-12.4); Monocytes Absolute Auto 0.6 X10*3/uL (0.1-1.2); Monocytes Percent Auto 8.7 % (2-11); Neutrophils Absolute Auto 5.1 x10*3/uL (2.0-8.3); Neutrophils Percent Auto 77.6 % (45-73); Platelet Count 277 X10*3/uL (160-400); Red Blood Count 2.69 X10*6/uL (4.60-5.80); Red Cell Distribution Width 19.2 % (11.0-16.0); White Blood Count 6.6 X10*3/uL (4.8-10.8)
[2024-08-16 10:52] LABS: B Type Natriuretic Peptide 474 pg/mL (<100)
[2024-08-16 11:11] LABS: Anion Gap 12 (12-20); Blood Urea Nitrogen 61 mg/dL (9-16); Calcium 9.5 mg/dL (8.4-10.2); Carbon Dioxide 27 mmol/L (22-29); Chloride 108 mmol/L (96-108); Estimated Glomerular Filt Rate 44; Glucose Random 171 mg/dL (60-115); Potassium 4.5 mmol/L (3.3-5.1); Sodium 142 mmol/L (135-145)
== END 2024-08-16 09:44 | disposition home or self-care (01) ==
LOC: HO.LAB 09:43
PROVIDERS: PCP Internal Medicine; Visit Provider Nurse Practitioner Family
DX: I50.20 Unspecified systolic (congestive) heart failure (principal)
CPT/HCPCS: 36415; 80048; 83880; 85025

== ENCOUNTER → 2024-12-15 23:59 | Outpatient (BNV) | payer MEDICARE, SELFPAY ==
--- NOTE | 2024-12-17 12:30 | A.OFFVIS_ITS ---
Intake Visit Reasons: Remote device chk- [employer] Allergies No Known Allergies Allergy (Verified 08/09/24 14:17) REPLACED BY [facility] Medical History Paroxysmal atrial fibrillation ICD (implantable cardioverter-defibrillator) in place CAD (coronary artery disease) Ischemic cardiomyopathy Aortic stenosis Diabetes 1.5, managed as type 1 HTN (hypertension) Surgical History Status post transcatheter aortic valve replacement Stented coronary artery S/P cardiac cath History of ankle surgery Family History Father Pacemaker Mother Diabetes Social History Patient Tobacco Use Status: Former Tobacco user Office Procedures Cardiac Device Check Cardiac Device Check Details: Remote ICD report generated 12/14/2024. ICD function is adequate. Patient noted to be in atrial fibrillation, persistent for few months [id number] Cardiac Interrogation, implant defibrillator w/interim Procedure code (CPT) selection complete Assessment & Plan Assessment & Plan (1) ICD (implantable cardioverter-defibrillator) in place: Comment: [employer] ICD in place for what appears to be heart block has reduced ejection fraction. Code(s): Z95.810 - Presence of automatic (implantable) cardiac defibrillator Category: Medical Plan: See above Coding Level of Care Code Procedure Only Diagnoses ICD (implantable cardioverter-defibrillator) in place Z95.810 CPT Codes Cardiac Device Check - Cardiac Device 13: [id number] Cardiac Interrogation, implant defibrillator w/interim ([id number])
== END ==
PROVIDERS: PCP Internal Medicine; Visit Provider Internal Medicine Cardiovascular Disease
DX: Z45.02 Encounter for adjustment and management of automatic implantable cardiac defibrillator (principal)
CPT/HCPCS: 93295

== ENCOUNTER 2024-12-23 14:11 | Outpatient (AMB) | payer MEDICARE, SELFPAY ==
[2024-12-23 14:57] VITALS: BP 130/62; PULSE 70
--- NOTE | 2024-12-23 14:57 | A.OFFVIS_ITS ---
Vital Signs 12/23/24 14:57 Height 6 ft 1 in BMI Reason not done Patient refused/unable BP 130/62 Blood Pressure Location Rt brachial Position Sitting Pulse 70 Pulse Source Monitor Intake Visit Reasons: follow up Intake Note: f/up Toolmaker Required: No Accompanied by: Self / Same As Patient Allergies No Known Allergies Allergy (Verified 08/09/24 14:17) Medication List - Last Reconciled 12/23/24 by Serg Velasco NP apixaban (Eliquis) 5 mg PO BID atorvastatin 40 mg PO DAILY dapagliflozin propanediol (Farxiga) 10 mg PO DAILY gabapentin 1,200 mg PO TID insulin glargine (Lantus Solostar U-100 Insulin) units subcut insulin lispro (Humalog KwikPen (U-100) Insulin) subcut metoprolol succinate ER 50 mg PO DAILY mirtazapine 15 mg PO BEDTIME pramipexole 0.5 mg PO sacubitril-valsartan 49-51 mg (Entresto) 1 tab PO BID spironolactone 12.5 mg (1/2 x 25 mg) PO DAILY torsemide 40 mg PO BID trazodone 200 mg PO DAILY HPI Comments Details: This is a 74-year-old male patient presenting for a follow-up visit. Patient with medical history of hypertension, diabetes, hyperlipidemia, aortic stenosis status post TAVR, CAD with LAD stent, ischemic cardiomyopathy, status post ICD placement, and paroxysmal AFib. 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 Patient states he had his surgery at [facility] and during his hospitalization, he was discharged with oxygen supplementation. Today, the patient presents in a wheelchair and is wearing his oxygen. The patient states she has been compliant with his medications as the nurses have been giving him his meds at the longterm. However, he was brought in for evaluation due to an increase in the recurrence of AFib noted on his remote monitoring. The AFib burden has risen from 0% at his last visit to 80% recently. Despite this, patient denies any cardiac symptoms including exer tional chest pain, shortness of breath, palpitations, dizziness, fatigue, orthopnea, PND, presyncope, or syncope. Patient notes that he has had an improvement in his swelling in the leg since adjustment in his medication by his provider at the longterm. [facility] Medical History (Updated 12/23/24 @ 14:59 by Jesusita Sandoval CMA) Amputation below knee Paroxysmal atrial fibrillation ICD (implantable cardioverter-defibrillator) in place CAD (coronary artery disease) Ischemic cardiomyopathy Aortic stenosis Diabetes 1.5, managed as type 1 HTN (hypertension) Surgical History Status post transcatheter aortic valve replacement Stented coronary artery S/P cardiac cath History of ankle surgery Family History Father Pacemaker Mother Diabetes Social History Patient Tobacco Use Status: Former Tobacco user Review of Systems Const Denies chills, Denies fatigue, Denies fever(s), Denies frequent falls, Denies weakness, Denies weight gain and Denies weight loss ENT Denies dizziness Card Denies chest pain, Denies leg edema, Denies lightheadedness, Denies palpitations, Denies dyspnea and Denies dyspnea on exertion Resp Denies cough, Denies dyspnea and Denies dyspnea on exertion GI Denies hematochezia Musc Denies abnormal gait, Denies muscle weakness, Denies numbness, Denies radiating pain into limb and Denies tingling Neuro Denies abnormal gait, Denies dizziness, Denies frequent falls, Denies numbness, Denies tingling and Denies weakness Endo Denies fatigue and Denies palpitations Physical Exam Vital Signs: Last Vital Signs Pulse 70 12/23/24 14:57 BP 130/62 12/23/24 14:57 Const General: cooperative, healthy appearing, comfortable and no acute distress Orientation/consciousness: patient oriented x3 HEENT Head: Yes normal to inspection Neck Neck: Yes normal visual inspection, Yes trachea midline and Yes supple Chest Chest palpation & inspection: normal inspection of the chest Resp Effort & Inspection: normal respiratory effort Auscultation: clear to auscultation bilaterally, no crackles, no rales, no rhonchi and no wheezes Cardio Jugular venous distension: no JVD Palpation: normal PMI Rate: regular rate Rhythm: regular rhythm Heart sounds: S1 normal heart sound present, S2 normal heart sound present, no click, no gallops, no murmurs and no rubs Peripheral pulses: Peripheral pulses 2+ throughout GI Inspection: Yes normal to inspection Palpation (GI): Soft to palpation Auscultation: normal bowel sounds Skin General skin exam: no rashes or lesions noted Neuro General: patient oriented x3 Extrem General: Yes normal to inspection, No calf tenderness, Yes edema (+1 pitting edema to left lower extremity) and Yes other (Right-sided BKA) Psych Appearance: grossly normal Mental Status: mental status grossly normal Speech and movement: Normal speech and movement present Office Procedures EKG Details: EKG today showed ventricular paced rhythm, underlying ?A flutter, rate 70 beats per minute. [id number], Complete Assessment & Plan Assessment & Plan (1) Heart failure with reduced ejection fraction: Code(s): I50.20 - Unspecified systolic (congestive) heart failure Category: Medical Plan: Continue on the guideline directed medical therapy with metoprolol, Entresto, Farxiga, torsemide, at spironolactone. Patient states due to his increased swelling in the leg, the provider at his longterm increase the torsemide to 60 mg b.i.d.. Patient states he has had 3 lb weight loss since this change. (2) CAD (coronary artery disease): Code(s): I25.10 - Atherosclerotic heart disease of [place] coronary artery without angina pectoris Category: Medical Plan: Denies any cardiac symptoms. Continue aggressive risk factor modification including blood pressure less than 130/84, A1c less than 7, LDL less than 70. (3) ICD (implantable cardioverter-defibrillator) in place: Comment: [employer] ICD in place for what appears to be heart block has reduced ejection fraction. Code(s): Z95.810 - Presence of automatic (implantable) cardiac defibrillator Category: Medical Plan: Remotes showed increase in AFib burden to 80% and therefore was brought into the office. Patient's metoprolol was increased from 25mg to 50 mg 2 weeks ago. (4) HTN (hypertension): Code(s): I10 - Essential (primary) hypertension Category: Medical Plan: Blood pressure well-controlled today. (5) Paroxysmal atrial fibrillation: Code(s): I48.0 - Paroxysmal atrial fibrillation Category: Medical Plan: EKG today questionable underlying AFib/a flutter. Reviewed with Dr. Irizarry. We will load him with amiodarone and bring him back in 2 weeks for cardioversion with the [employer] rep. Continue on Eliquis for full anticoagulation therapy. Continue metoprolol. Start amiodarone therapy. Spoke with the nurse taking care of patient at the nursing facility to make sure they are aware of the plan. This note was generated using voice recognition software. While every effort has been made to ensure accuracy and proper vice president payment, there may be occasional errors that could affect the content or meaning of the described symptoms. Orders: Orders AMB EKG-In Office Today I48.0 - Paroxysmal atrial fibrillation Medications: New amiodarone Take 400 mg twice a day for 2 weeks, followed by 200mg daily 200 mg PO DAILY 90 tabs 1RF Coding Level of Care Code Est Pt Level 4 (31125) Diagnoses Heart failure with reduced ejection fraction I50.20 CAD (coronary artery disease) I25.10 ICD (implantable cardioverter-defibrillator) in place Z95.810 HTN (hypertension) I10 Paroxysmal atrial fibrillation I48.0 CPT Codes EKG - CPT: 59249-[id number], Complete ([id number]) Time Spent (min) 32 Comment Time spent in reviewing the chart, test results, assessment, counseling and documentation.
--- OUTSIDE RECORDS SUMMARY | 2024-12-23 17:57 | XMS_ITS | Clinical Summary ---
Author Organization [facility] Facility Address [address] [address] Care Team Providers Care Clinical Exercise Physiologist Name Role Phone Jeovanny Kong DO Primary Care Provider [phone] Social History Tobacco Use Types Packs/Day Years Used Date Smoking Tobacco: Never Assessed Sex and Gender Information Value Date Recorded Sex Assigned at Not on file Legal Sex Male 12:40 PM EST Gender Identity Not on file Sexual Orientation Not on file Plan of Treatment Health Maintenance Due Date Last Done Comments Colorectal Cancer Screening: Annual FOBT 1999 Colorectal Cancer Screening: Colonoscopy 1999 Colorectal Cancer Screening: Sigmoidoscopy 1999 Diabetes: Hemoglobin A1C 11/20/2023 Diabetes: Ophthalmology Exam 11/20/2023 Diabetes: Pedal Pulse Checked 11/20/2023 Diabetes: Sensory Foot Exam 11/20/2023 Diabetes: Visual Foot Exam 11/20/2023 Influenza Vaccine (#1) 2024 Pneumococcal Vaccine: 65+ Years Completed 09/10/2019, 08/20/2018 Hepatitis B Vaccine Aged Out No longe r eligible based on patient's age to complete this topic Insurance [employer] Care Teams Clinical Exercise Physiologist Relationship Specialty Start Date End Date HernanJeovanny garcia DO [address] [place] [address] PCP - General Internal Medicine 11/13/23
--- OUTSIDE RECORDS SUMMARY | 2024-12-23 17:57 | XMS_ITS | Encounter Summary ---
Author Organization [facility] Address [address] [place] [address] Phone Care Team Providers Care Technology Recruiter Name Role Phone Jeoavnny Kong DO Primary Care Provider [phone] Encounter Details Date Type Department Care Team (Late st Contact Info) Description 07/19/2024 Documentation Only [facility], [address] [place] [address] Bar[address] [place] [address] Social History Tobacco Use Types Packs/Day Years Used Date Smoking Tobacco: Never Assessed Sex and Gender Information Value Date Recorded Sex Assigned at Not on file Legal Sex Male 12:40 PM EST Gender Identity Not on file Sexual Orientation Not on file documented as of this encounter Plan of Treatment Not on file documented as of this encounter Visit Diagnoses Not on filedocumented in this encounter Care Teams Technology Recruiter Relationship Specialty Start Date End Date Jeovanny Kong DO [address] [place] [phone] PCP - General Internal Medicine 11/13/23 documented as of this encounter
--- OUTSIDE RECORDS SUMMARY | 2024-12-23 17:58 | XMS_ITS | Encounter Summary ---
Author Name [facility] Organization [facility] Address [address] [place] [id number] Support Name Relationship Address Phone PUNEET ESPINOZA Next of Kin [address] [place] [address] ALEXIS, PUNEET Emergency Contact [address] [place] [address] Selected Encounter This section includes the information on record at [place] for the Encounter. Date/Time Encounter Type Encounter Description Reason Pro vider Source Sep 16, 2024 01:05 PM Outpatient Encounter ADMIN PAT ACTIVTIES (MASNONCT) IHE Encounter Template Text not used by [place] Plan of Treatment: Future Appointments (+ 6 months) and Future Tests (+/- 45 days) The Plan of Treatment section includes future care activities for the patient from all [place] treatmentfacilities. This section includes future appointments and future orders which are active, pending or scheduled. Future Appointments This section includes appointments that were scheduled to occur 6 months from the date of the Encounter, up to a maximum of 20 appointments. The data comes from all [place] treatment facilities. Appointment Date/Time Appointment Type Appointme nt Facility Name Sep 21, 2024 10:00 AM AMBULATORY - NONE [facility] Encounter Notes: All associated encounter notes This section contains the clinical notes associated to the Encounter. Date/Time Encounter Note(s) Provider Source Sep 16, 2024 01:05 PM CLINICAL WARNING: LOCAL TITLE: COMMUNICATION AUTHORIZATION STANDARD TITLE: CLINICAL WARNING DATE OF NOTE: SEP 16, 2024@13:05 ENTRY DATE: SEP 16, 2024@13:05:46 AUTHOR: SUSANNE FABIAN EXP COSIGNER: URGENCY: STATUS: COMPLETED Family/Caregiver Name: Primary: PUNEET ENGLISHMAN Secondary: Tertiary: Authorized Clinic & Topics: All Clinic's & Topics: All Care/Coordination Primary Care: All Care/Coordination Mental Health: All Care/Coordination Specialty Care: All Care/Coordination [id number] Protected Info: [ ] Drug Abuse [ ] Alcohol Abuse [ ] HIV [ ] Sickle Cell Expiration: Date: [ ] At [X] Through [ ] At end of care /nataliia/ SUSANNE FABIAN Signed: 09/16/2024 13:06 SUSANNE FABIAN [facility]
--- OUTSIDE RECORDS SUMMARY | 2024-12-23 17:58 | XMS_ITS | Clinical Summary ---
Author Organization [facility] Address [address] [place] [address] Phone Care Team Providers Care Sales Warehouse Driver Name Role Phone Jessica Feldman MD Primary Care Provider + Encounters Date Type Department Care Team Description 12/18/[address] 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 [address] [place] [address] Jessica Feldman MD Endocarditis, valve unspecified; Essential (primary) hypertension; Unspecified atrial fibrillation (CMS/HCC); Bacteremia; Anemia, unspecified from Last 3 Months Social History Tobacco Use Types Packs/Day Years Used Date Smoking Tobacco: Never Assessed Sex and Gender Information Value Date Recorded Sex Assigned at Not on file Gender Identity Not on file Sexual Orientation Not on file Plan of Treatment Health Maintenance Due Date Last Done Comments Pneumococcal Vaccine: 65+ Years (1 of 2 - PCV) 1956 Diabetes: Annual Foot Exam 1960 Diabetes: Annual Retina Eye Exam 1960 DTaP,Tdap,and Td Vaccines (1 - Tdap) 1969 Zoster Vaccines (1 of 2) 2000 RSV Immunization Patients 60+ Years Old (1 - Risk 60-74 years 1-dose series) 2010 Abdominal Aortic Aneurysm (AAA) Screen 10/27/2022 Cholesterol Screening (Lipid Panel) 10/27/2022 Depression Screening 10/27/2022 Falls Risk Assessment 10/27/2022 Social Influencers of Health Screening 10/27/2022 COVID-19 Vaccine ( season) 2024 01/01/2022, 05/18/2021, 04/20/2021 Influenza Vaccine (#1) 2024 Diabetes: Annual Urine Albumin-Creatinine Ratio (uACR) 10/05/2024 Diabetes: Blood Sugar Control Test (HGBA1C) 03/30/2025 09/30/2024 Colorectal Cancer Screening: Stool Based Tests (FOBT/FIT) 07/03/2025 07/03/2024 Diabetes: Annual GFR (Glomerular Filtration Rate) 12/20/2025 12/20/2024, 12/13/2024, 12/06/2024, Additional history exists Hypertension/CHF/CAD Annual BMP Blood Test 12/20/2025 12/20/2024, 12/13/2024, 12/06/2024, Additional history exists Hepatitis C Screening Completed 09/26/2024 HIB Vaccines Aged Out No longer eligi ble based on patient's age to complete this topic HPV Vaccines Aged Out No longer eligi ble based on patient's age to complete this topic Hepatitis A Vaccines Aged Out No long er eligible based on patient's age to complete this topic Hepatitis B Vaccines Aged Out No long er eligible based on patient's age to complete this topic IPV Vaccines Aged Out No longer eligi ble based on patient's age to complete this topic MMR Vaccines Aged Out No longer eligi ble based on patient's age to complete this topic Meningococcal ACWY Vaccine Aged Out N o longer eligible based on patient's age to complete this topic RSV Immunization Patients Under 20 months Aged Out No longer eligible based on patient's age to complete this topic Varicella Vaccines Aged Out No longer eligible based on patient's age to complete this topic Procedures Procedure Name Priority Date/Time Associated Diagnosis Comments COMPREHENSIVE METABOLIC PANEL Routine 12/20/2024 8:30 AM EST 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) COMPLETE BLOOD COUNT Routine 12/20/2024 8:30 AM EST 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) COMPREHENSIVE METABOLIC PANEL Routine 12/13/2024 9:19 AM EST 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) COMPLETE BLOOD COUNT Routine 12/13/2024 9:19 AM EST 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) COMPREHENSIVE METABOLIC PANEL Routine 12/06/2024 7:19 AM EST 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) COMPLETE BLOOD COUNT Routine 12/06/2024 7:19 AM EST 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) BASIC METABOLIC PANEL Routine 12/02/2024 5:12 AM EST Heart failure, unspecified (CMS/HCC) B-TYPE NATRIURETIC PEPTIDE Routine 11/29/2024 7:30 AM EST Heart failure, unspecified (CMS/HCC) 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) COMPREHENSIVE METABOLIC PANEL Routine 11/29/2024 7:30 AM EST Heart failure, unspecified (CMS/HCC) 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) COMPLETE BLOOD COUNT Routine 11/29/2024 7:30 AM EST Heart failure, unspecified (CMS/HCC) 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) HEMOGLOBIN A1C Routine 09/30/2024 6:48 AM EST Endocarditis, valve unspecified Essential (primary) hypertension Unspecified atrial fibrillation (CMS/HCC) Bacteremia Anemia, unspecified COMPREHENSIVE METABOLIC PANEL Routine 09/30/2024 6:48 AM EST Endocarditis, valve unspecified Essential (primary) hypertension Unspecified atrial fibrillation (CMS/HCC) Bacteremia Anemia, unspecified COMPLETE BLOOD COUNT Routine 09/30/2024 6:48 AM EST Endocarditis, valve unspecified Essential (primary) hypertension Unspecified atrial fibrillation (CMS/HCC) Bacteremia Anemia, unspecified from Last 3 Months Results * (ABNORMAL) Complete blood count (12/20/2024 8:30 AM EST) Only the most recent of5 resultswithin the time period is included. WBC 3.5(L) 4.8 - 10.8 K/mcL LAB HEMETOLOGY METHOD 12/20/2024 2:[address] [facility] RBC 3.20(L) 4.50 - 5.50 M/mcL LAB HEMETOLOGY METHOD 12/20/2024 2:[address] [facility] Hemoglobin 8.8(L) 13.5 - 17.5 g/dL LAB HEMETOLOGY METHOD 12/20/2024 2:[address] [facility] Hematocrit 30.5(L) 42.0 - 54.0 % LAB HEMETOLOGY METHOD 12/20/2024 2:06 PM EST [facility] MCV 94.4 79.0 - 98.0 FL LAB HEMETOLOGY METHOD 12/20/2024 2:06 PM EST [facility] MCH 27.2 27.0 - 32.0 pcg LAB HEMETOLOGY METHOD 12/20/2024 2:[address] [facility] MCHC 28.9(L) 32.0 - 37.0 g/dL LAB HEMETOLOGY METHOD 12/20/2024 2:06 PM EST [facility] RDW 17.3(H) 11.0 - 15.0 % LAB HEMETOLOGY METHOD 12/20/2024 2:[address] [facility] Platelets 184 130 - 400 K/mcL LAB HEMETOLOGY METHOD 12/20/2024 2:[address] [facility] MPV 10.0 7.0 - 11.0 FL LAB HEMETOLOGY METHOD 12/20/2024 2:06 PM EST [facility] NRBC 0.0 <1.0 % LAB HEMETOLOGY METHOD 12/20/2024 2:[address] [facility] NRBC Absolute 0.00 <0.10 K/mcL LAB HEMETOLOGY METHOD 12/20/2024 2:[address] [facility] Blood Venous blood specimen / Unknown Venipuncture / Unknown 12/20/2024 8:30 AM EST 12/20/2024 11:54 AM EST Jessica Feldman MD LAB BLOOD ORDERA BLES [facility] [address] [place] [address], * (ABNORMAL) Comprehensive metabolic panel (12/20/2024 8:30 AM EST) Only the most recent of5 resultswithin the time period is included. Sodium 141 133 - 145 mmol/L LAB CHEMISTRY METHOD 12/20/2024 1:[address] [facility] Potassium 4.2 3.5 - 5.5 mmol/L LAB CHEMISTRY METHOD 12/20/2024 1:[address] [facility] Chloride 104 96 - 110 mmol/L LAB CHEMISTRY METHOD 12/20/2024 1:[address] [facility] CO2 32 21 - 32 mmol/L LAB CHEMISTRY METHOD 12/20/2024 1:[address] [facility] Anion Gap 5 3 - 11 LAB CHEMISTRY METHOD 12/20/2024 1:[address] [facility] Glucose 88 70 - 100 mg/dL LAB CHEMISTRY METHOD 12/20/2024 1:[address] [facility] BUN 38(H) 5 - 25 mg/dL LAB CHEMISTRY METHOD 12/20/2024 1:[address] [facility] Creatinine 1.58(H) 0.70 - 1.30 mg/dL LAB CHEMISTRY METHOD 12/20/2024 1:[address] [facility] eGFR 46(L) >=60 mL/min/1. 73m2 LAB CHEMISTRY METHOD 12/20/2024 1:[address] [facility] Comment:Calculation based on the??Chronic Kidney Disease Epidemiology Collaboration (CKD-EPI) equation refit??without adjustment for race. BUN/Creatinine Ratio 24.1 LAB CHEMISTRY METHOD 12/20/2024 1:[address] [facility] Calcium 9.3 8.5 - 10.5 mg/dL LAB CHEMISTRY METHOD 12/20/2024 1:[address] [facility] AST (SGOT) 11 10 - 42 unit/L LAB CHEMISTRY METHOD 12/20/2024 1:[address] [facility] ALT (SGPT) 20 10 - 60 unit/L LAB CHEMISTRY METHOD 12/20/2024 1:[address] [facility] Alkaline Phosphatase 116 42 - 121 unit/L LAB CHEMISTRY METHOD 12/20/2024 1:[address] [facility] Total Protein 7.4 6.0 - 8.0 g/dL LAB CHEMISTRY METHOD 12/20/2024 1:[address] [facility] Albumin 3.3 3.2 - 5.0 g/dL LAB CHEMISTRY METHOD 12/20/2024 1:[address] [facility] Total Bilirubin 0.6 0.0 - 1.4 mg/dL LAB CHEMISTRY METHOD 12/20/2024 1:[address] [facility] Blood Venous blood specimen / Unknown Venipuncture / Unknown 12/20/2024 8:30 AM EST 12/20/2024 11:54 AM EST Jessica Feldman MD LAB BLOOD ORDERA BLES [facility] [address] [place] [address], * (ABNORMAL) Basic metabolic panel (12/02/2024 5:12 AM EST) Sodium 140 133 - 145 mmol/L LAB CHEMISTRY METHOD 12/02/2024 11:[address] [facility] Potassium 3.9 3.5 - 5.5 mmol/L LAB CHEMISTRY METHOD 12/02/2024 11:[address] [facility] Chloride 103 96 - 110 mmol/L LAB CHEMISTRY METHOD 12/02/2024 11:[address] [facility] CO2 32 21 - 32 mmol/L LAB CHEMISTRY METHOD 12/02/2024 11:[address] [facility] Anion Gap 5 3 - 11 LAB CHEMISTRY METHOD 12/02/2024 11:[address] [facility] Glucose 176(H) 70 - 100 mg/dL LAB CHEMISTRY METHOD 12/02/2024 11:[address] [facility] BUN 43(H) 5 - 25 mg/dL LAB CHEMISTRY METHOD 12/02/2024 11:[address] [facility] Creatinine 1.78(H) 0.70 - 1.30 mg/dL LAB CHEMISTRY METHOD 12/02/2024 11:[address] [facility] eGFR 40(L) >=60 mL/min/1. 73m2 LAB CHEMISTRY METHOD 12/02/2024 11:[address] [facility] Comment:Calculation based on the??Chronic Kidney Disease Epidemiology Collaboration (CKD-EPI) equation refit??without adjustment for race. BUN/Creatinine Ratio 24.2 LAB CHEMISTRY METHOD 12/02/2024 11:[address] [facility] Calcium 9.2 8.5 - 10.5 mg/dL LAB CHEMISTRY METHOD 12/02/2024 11:[address] [facility] Blood Venous blood specimen / Unknown Venipuncture / Unknown 12/02/2024 5:12 AM EST 12/02/2024 9:47 AM EST Jessica Feldman MD LAB BLOOD ORDERA BLES [facility] [address] [place] [address], [place] [phone] * (ABNORMAL) B-type natriuretic peptide (11/29/2024 7:30 AM EST) BNP 162(H) <=100 pcg/mL LAB CHEMISTRY METHOD 11/29/2024 12:40 PM EST [facility] Blood Venous blood specimen / Unknown Venipuncture / Unknown 11/29/2024 7:30 AM EST 11/29/2024 11:11 AM EST Jessica Feldman MD LAB BLOOD ORDERA BLES [facility] [address] [place] [address], [place] [phone] * (ABNORMAL) Hemoglobin A1c (09/30/2024 6:48 AM EST) Hemoglobin A1C 6.8(H) <6.5 % LAB CHEMISTRY METHOD 09/30/2024 2:15 PM EST [facility] Mean Bld Glu Estim. 148 mg/dL LAB CHEMISTRY METHOD 09/30/2024 2:15 PM EST [facility] Blood Venous blood specimen / Unknown Venipuncture / Unknown 09/30/2024 6:48 AM EST 09/30/2024 9:07 AM EST Jessica Feldman MD LAB BLOOD ORDERA BLES [facility] [address] [place] [address], from Last 3 Months Care Teams Sales Warehouse Driver Relationship Specialty Start Date End Date Jessica Feldman MD [address] [place] [id number] PCP - General Family Medicine 10/01/24
--- OUTSIDE RECORDS SUMMARY | 2024-12-23 17:58 | XMS_ITS | Continuity of Care Document ---
Author Name [facility] Organization [facility] Care Team Providers Care User Experience Team Lead Name Role Phone [facility] Unavailable Unavailable Problems Combined list of problems from Department of Defense and Veterans Affairs facilities. It does not include entries that were removed or entered in error. Problem Status Onset Date Problem Type Date of Resolution Comments Source Diagnosis: ICD-10-CM I50.40 Unsp combined systolic and diastolic (congestive) hrt fail Active Diagnosis [facility] Immunizations Combined list of available immunizations from the Department of Defense and Veterans Affairs facilities. Immunization Series Date Given Administered By Site Reaction Lot Number CVX Code Drug Air Quality Manager Status Comments Source COVID-19 (MODERNA), MRNA, LNP-S, PF, 100 MCG/0.5 ML DOSE 2 2020 207 complet ed MOD; [id number]; 1 [facility] COVID-19 (MODERNA), MRNA, LNP-S, PF, 100 MCG/0.5 ML DOSE 1 2020 207 complet ed MOD; [id number]; 1 [facility] Encounters Combined list of: 1) Encounters from Department of Veterans Affairs facilities going back up to thelast 18 months. 2) Encounters from the Department of Defense facilities going back up to 280 months. Location Location Details Encounter Type Encounter Number Reason For Visit Attending Provider ADM Date DC Date Status Disposition Source [facility] Outpatient Encounter [id number] 09/10 [facility] Outpatient [facility]counter [id number] 1.09/14 [facility] Outpatient Encounter [id number] 1.09/16 [facility] HC PRO PHONE CALL 11-20 MIN [id number] Diagnos is: ICD-10- CM I50.40 Unsp combine d systoli c and diastol ic (conges tive) hrt fail
SANTOSH RAGSDALE ISTINE E 09/20 [facility] HC PRO PHONE CALL 5-10 MIN [id number] Diagnos is: ICD-10- CM I50.40 Unsp combine d systoli c and diastol ic (conges tive) hrt fail
SANTOSH RAGSDALE E 09/22 [facility] Outpatient Encounter [id number] 09/24 [facility] Outpatient Encounter [id number] 10/19 [facility]
--- OUTSIDE RECORDS SUMMARY | 2024-12-23 17:58 | XMS_ITS | Encounter Summary ---
Author Organization [facility] Address [address] [place] [address] Phone Care Team Providers Care Ct Technician Name Role Phone Jeovanny Kong DO Primary Care Provider [phone] Encounter Details Date Type Department Care Team (Late st Contact Info) Description 07/19/2024 Documentation Only [facility], [address] [place] [address] Barbie Blanton [address] [place] [address] Social History Tobacco Use Types [...] on filedocumented in this encounter Care Teams Ct Technician Relationship Specialty Start Date End Date Jeovanny Kong DO [address] [place] [phone] PCP - General Internal Medicine 11/13/23 documented as of this encounter
--- OUTSIDE RECORDS SUMMARY | 2024-12-23 17:58 | XMS_ITS | Encounter Summary ---
Author Organization [facility] Address [address] [place] [address] Care Team Providers Care Brine Tank Operator Name Role Phone Jeovanny Kong Primary Care Provider [phone] Encounter Details Date Type Department Care Team (Late st Contact Info) Description 12/06/2021 Orders Only [facility] [address] [place] [address] Provider, Moe, [address] [place] [address] Social History Tobacco Use Types Packs/Day Years Used Date Smoking Tobacco: Former Cigarettes Q uit: 12/05/1991 Smokeless Tobacco: Never Alcohol Use Standard Drinks/Week Comments Not Currently 0 (1 standard drink = 0.6 oz pur e alcohol) Sex and Gender Information Value Date Recorded Sex Assigned at Male 12/05/2021 11:52 AM EST Legal Sex Male 10:02 AM EST Gender Identity Male 12/05/2021 11:52 AM EST Sexual Orientation Straight 12/05/2021 11 :52 AM EST documented as of this encounter Plan of Treatment Not on file documented as of this encounter Procedures * Due to [place] Angio[employer] law, this organization might not be sharing negative HIV tests. Procedure Name Priority Date/Time Associated Diagnosis Comments LAB - SCANNED Routine 02/27/2021 documented in this encounter Results * Due to [place] Angio[employer]ide law, this organization might not be sharing negative HIV tests. * LAB - SCANNED (02/27/2021) us Unknown Provider MD LAB HISTORICAL RESULTS Final Result documented in this encounter Visit Diagnoses Not on filedocumented in this encounter Care Teams Brine Tank Operator Relationship Specialty Start Date End Date Jeovanny Kong [address] [place] [address] PCP - General Internal Medicine 11/12/21 documented as of this encounter
--- OUTSIDE RECORDS SUMMARY | 2024-12-23 17:58 | XMS_ITS | Encounter Summary ---
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) Social History Tobacco Use Types Packs/Day Years Used Date Smoking Tobacco: Never Assessed Sex and Gender Information Value Date Recorded Sex Assigned at Not on file Gender Identity Not on file Sexual Orientation Not on file documented as of this encounter Plan of Treatment Not on file documented as of this encounter Procedures Procedure Name Priority Date/Time Associated Diagnosis Comments COMPLETE BLOOD COUNT Routine 12/20/2024 8:30 AM EST 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) COMPREHENSIVE METABOLIC PANEL Routine 12/20/2024 8:30 AM EST 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) documented in this encounter Results * (ABNORMAL) Comprehensive metabolic panel (12/20/2024 8:30 AM EST) Sodium 141 133 - 145 mmol/L LAB CHEMISTRY METHOD 12/20/2024 1:53 PM EST [facility] Potassium 4.2 3.5 - 5.5 mmol/L LAB CHEMISTRY METHOD 12/20/2024 1:53 PM EST [facility] Chloride 104 96 - 110 mmol/L LAB CHEMISTRY METHOD 12/20/2024 1:53 PM [facility] CO2 32 21 - 32 mmol/L LAB CHEMISTRY METHOD 12/20/2024 1:53 PM [facility] Anion Gap 5 3 - 11 LAB CHEMISTRY METHOD 12/20/2024 1:53 PM [facility] Glucose 88 70 - 100 mg/dL LAB CHEMISTRY METHOD 12/20/2024 1:53 PM [facility] BUN 38(H) 5 - 25 mg/dL LAB CHEMISTRY METHOD 12/20/2024 1:53 PM [facility] Creatinine 1.58(H) 0.70 - 1.30 mg/dL LAB CHEMISTRY METHOD 12/20/2024 1:53 PM [facility] eGFR 46(L) >=60 mL/min/1. 73m2 LAB CHEMISTRY METHOD 12/20/2024 1:53 PM [facility] Comment:Calculation based on the??Chronic Kidney Disease Epidemiology Collaboration (CKD-EPI) equation refit??without adjustment for race. BUN/Creatinine Ratio 24.1 LAB CHEMISTRY METHOD 12/20/2024 1:53 PM [facility] Calcium 9.3 8.5 - 10.5 mg/dL LAB CHEMISTRY METHOD 12/20/2024 1:53 PM [facility] AST (SGOT) 11 10 - 42 unit/L LAB CHEMISTRY METHOD 12/20/2024 1:53 PM [facility] ALT (SGPT) 20 10 - 60 unit/L LAB CHEMISTRY METHOD 12/20/2024 1:53 PM [facility] Alkaline Phosphatase 116 42 - 121 unit/L LAB CHEMISTRY METHOD 12/20/2024 1:53 PM [facility] Total Protein 7.4 6.0 - 8.0 g/dL LAB CHEMISTRY METHOD 12/20/2024 1:53 PM [facility] Albumin 3.3 3.2 - 5.0 g/dL LAB CHEMISTRY METHOD 12/20/2024 1:53 PM [facility] Total Bilirubin 0.6 0.0 - 1.4 mg/dL LAB CHEMISTRY METHOD 12/20/2024 1:53 PM [facility] Blood Venous blood specimen / Unknown Venipuncture / Unknown 12/20/2024 8:30 AM EST 12/20/2024 11:54 AM EST Jessica Feldman MD LAB BLOOD ORDERA BLES [facility] [address] [place] [address], * (ABNORMAL) Complete blood count (12/20/2024 8:30 AM EST) WBC 3.5(L) 4.8 - 10.8 K/mcL LAB HEMETOLOGY METHOD 12/20/2024 2:06 PM [facility] RBC 3.20(L) 4.50 - 5.50 M/mcL LAB HEMETOLOGY METHOD 12/20/2024 2:06 PM [facility] Hemoglobin 8.8(L) 13.5 - 17.5 g/dL LAB HEMETOLOGY METHOD 12/20/2024 2:06 PM [facility] Hematocrit 30.5(L) 42.0 - 54.0 % LAB HEMETOLOGY METHOD 12/20/2024 2:06 PM [facility] MCV 94.4 79.0 - 98.0 FL LAB HEMETOLOGY METHOD 12/20/2024 2:06 PM [facility] MCH 27.2 27.0 - 32.0 pcg LAB HEMETOLOGY METHOD 12/20/2024 2:06 PM [facility] MCHC 28.9(L) 32.0 - 37.0 g/dL LAB HEMETOLOGY METHOD 12/20/2024 2:06 PM [facility] RDW 17.3(H) 11.0 - 15.0 % LAB HEMETOLOGY METHOD 12/20/2024 2:06 PM [facility] Platelets 184 130 - 400 K/mcL LAB HEMETOLOGY METHOD 12/20/2024 2:06 PM [facility] MPV 10.0 7.0 - 11.0 FL LAB HEMETOLOGY METHOD 12/20/2024 2:06 PM [facility] NRBC 0.0 <1.0 % LAB HEMETOLOGY METHOD 12/20/2024 2:06 PM [facility] NRBC Absolute 0.00 <0.10 K/mcL LAB HEMETOLOGY METHOD 12/20/2024 2:06 PM [facility] Blood Venous blood specimen / Unknown Venipuncture / Unknown 12/20/2024 8:30 AM EST 12/20/2024 11:54 AM EST Jessica Feldman MD LAB BLOOD ORDERA BLES [facility] [address] [place] [address], documented in this encounter Visit Diagnoses Diagnosis 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
--- OUTSIDE RECORDS SUMMARY | 2024-12-23 17:58 | XMS_ITS | Data Portability ---
Author Organization [facility] Address [address] [place] [address] Assessment Encounter Date Assessment Date Assessment LastModified by Organization Details LastModified Time 03/28/2023 03/28/2023 The patient denies little pleasure in activities they find enjoyable, feeling depressed, difficulties sleeping, feeling tired or having little energy, change in appetite, feeling guilty, overwhelmed or unmotivated. The patient denies suicidal ideation, thoughts of hurting themselves or others. Their mood is appropriate, they show good judgement and clear understanding of the conversation. They are orientated to time, place and person. They are not expressing any concerning thoughts or actions that would need further investigation and treatment for mental health. The patient denies recent falls or recurrent falls. Denies instability, weakness, abnormal gait, or difficulties with movement. The patient wears correct, supportive shoes and is not otherwise severely visually impaired. The patient is full weight bearing and if using the assistance of a cane or walker feels supported and stable with the use of such devices. All medical conditions have been taken into account that may pose a risk for the patient for falls. Home maryjane, carpets and/or rugs do not pose a challenge for the patient. The patient has been educated about the use of vitamin D supplementation for bone health and prevention of hypotensive episodes that may increase risk for fall. All question and concerns were answered to the patient's satisfaction. [email or web address] Not available 03/28/2023 10:07:01 12/24/2023 12/24/2023 Patient agreed and verbally consents to this audio and video Telehealth appt via a secure platform [email or web address] Not available 12/24/2023 09:23:24 Plan of Treatment Reminders Order Date Submit Date Provider Last Modified By Organization Details Last Modified Time Details Appointments None recorded. Lab lipid panel, blood 2022 023 [facility], [address] [place] [address], [address], 3 10:10:25 PSA, serum or plasma 2022 023 [facility], [address] [place] [address], [address], 3 10:10:25 vitamin D, 25-hydroxy , total, serum 2022 023 [facility], [address] [place] [address], [address], 3 10:10:25 hemoglobin A1c, QN, blood 2022 023 [facility], [address] [place] [address], [address], 3 10:10:25 vitamin B12, serum 2022 023 [facility], [address] [place] [address], [address], 3 10:10:25 C-reactive protein, quantitati ve, serum or plasma 2023 024 [facility], [address] [place] [address], [address], 4 11:59:24 CBC w/ auto diff 2023 024 [facility], [address] [place] [address], [address], 4 11:44:35 ESR (erythrocy te sedimentat ion rate), blood 2023 024 [facility], [address] [place] [address], [address], 4 11:44:35 CMP, serum or plasma 2023 024 [facility], [address] [place] [address], [place], [address], 4 11:44:34 Referral None recorded. Procedures None recorded. Surgeries None recorded. Imaging None recorded. Medication Orders eszopiclon e [address] [id number], [address] [place], [address], 3 09:59:58 trazodone 100 mg tablet [address] [facility]20[facility], [address] [place], [address], 4 10:52:54 tamsulosin 0.4 mg capsule [address] [facility]20[facility], [address] [place], [address], 4 10:52:26 Patient TargetsNo targets recorded. Patient Instructions Encounter Date Encounter Id Patient Instructions Last Modified By Organization Details Last Modified Time 03/28/2023 [id number] advance care planning: care instructions [email or web address] Not available 03/28/2023 10:06:18 Reason for Referral None Reported. Results Created Date Observation Date Name Description Value Unit Range Abnormal Flag Note LastModifiedBy Organization Detail LastModifiedTime 02/06/2002/05/2023 XR, foot No observ ation record ed. [email or web address] [address], [place], [address], 02/06/2023 09:22:44 Result Notes None recorded. Problems Name Problem SNOMED Code Status Onset Date Resolution Date Notes Provider Name and Address Organization Details Recorded Time Obesity 399606988 Active 2020 Saloni horne [place] - [facility] 1 15:23:22 Blepharo spasm 62700941 [facility] 1 15:23:45 Amputate d toe 782768702 Active 2021 EDY NELSON [address] [place] [address], [address], [facility] 2 15:45:42 Osteomye litis of left foot 25118005824 89178 Active 2021 EDY NELSON [address] [place] [address], [address], [facility] 2 15:45:43 Heart murmur 06613219 Active 2021 EDY NELSON [address] [place] [address], [address], [facility] 2 15:45:47 Essentia l hyperten edmundo 46576700 Active 2021 EDY NELSON [address] [place] [address], [address], [facility] 2 15:45:48 Type 2 diabetes mellitus 40017248 Active 2021 EDY NELSON [address] [place] [address], [address], [facility] 2 15:49:29 Jaundice 01031694 Active 2021 EDY NELSON [address] [place] [address], [address], [facility] 2 09:54:45 Left leg peripher al neuropat hy 74805034102 9106 Active 2021 Jeovanny Kong DO [address] [place] [address], [address], [facility] 2 11:55:15 Severe aortic valve stenosis 946401806 Active 2021 Jeovanny Kong DO [address] [place] [address], [address], [facility] 2 12:51:21 Insomnia 353774655 Active 2021 Jeovanny Kong DO [address] [place] [address], [address], [facility] 2 12:54:45 Osteoart hritis of right knee joint 41068582839 9100 Active 2021 Jeovanny Kong DO [address] [place] [address], [address], [facility] 2 16:02:51 Aortic valve stenosis 13438659 Active 2021 EDY NELSON [address] [place] [address], [address], [facility] 2 15:23:11 Benign prostati c hyperpla carlos 024897145 Active 2021 EDY NELSON [address] [place] [address], [address], [facility] 2 15:26:09 Congesti ve heart failure 65282728 Active 2021 EDY NELSON [address] [place] [address], [address], [facility] 2 15:20:16 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 70204831 Active 2022 Jeovanny Kong DO [address] [place] [address], [address], [facility] 3 12:37:53 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 58931300 Active 2022 Jeovanny Kong DO [address] [place] [address], [address], [facility] 3 12:38:12 Anemia of chronic disease 280400476 Active 2022 presumed from foot infection Jeovanny Kong DO [address] [place] [address], [address], [facility] 3 08:57:44 Diarrhea 62064833 Active 2022 EDY NELSON [address] [place], [address], [facility] 3 10:07:18 Neuropat hy 736668175 Active 2022 EDY NELSON [address] [place], [address], [facility] 3 08:21:08 Pain of left shoulder joint 44830083523 307424 Active 2022 Jeovanny Kong DO [address] [place], [address], [facility] 3 21:17:41 Acute systolic heart failure 192503594 Active 2023 EDY NELSON [address] [place], [address], [facility] 4 09:23:56 Chronic kidney disease stage 3 214001544 Active 2023 Jeovanny Kong DO [address] [place] [address], [address], [facility] 4 20:31:53 Osteomye litis of right foot 87174493110 05227 Active 2023 EDY NELSON [address] [place], [address], [facility] 4 11:48:15 Hypokale reyes 91749582 Active 2023 EDY NELSON [address] [place], [address], [facility] 4 11:57:10 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 Please review this document and add these problems to the patient's chart manually as needed. Problem Notes None recorded. Procedures Surgical History Date Name Laterality Status Provider Name and Address Organization Details Recorded Time 024 colonoscopy completed [facility] 08/27/2024 08:37:23 023 Corticosteroid Injection completed Jeovanny Kong DO [address] [place] [address], [address], [facility] 01/03/2023 12:38:41 022 Corticosteroid Injection completed Jeovanny Kong DO [address] [place] [address], [address], [facility] 05/17/2022 16:02:05 022 WOUND CARE completed EDY NELSON [address] [place] [address], [address], [facility] 01/30/2022 10:21:58 022 WOUND CARE completed EDY NELSON [address] [place] [address], [address], [facility] 01/25/2022 12:35:29 021 Corticosteroid Injection completed Jeovanny Kong DO [address] [place] [address], [address], [facility] 11/13/2021 11:59:09 021 Corticosteroid Injection completed Jeovanny Kong DO [address] [place] [address], [address], [facility] 06/29/2021 12:20:03 021 Corticosteroid Injection completed Jeovanny Kong DO [address] [place] [address], [address], [facility] 06/12/2021 11:27:50 Imaging Results Imaging Date Name Status LastModified by Organiz ation Details LastModified Time 02/05/2023 XR, foot completed [email or web address] [address], [address], 02/06/2023 09:22:44 Procedure Notes None recorded. Medical Equipment None Reported. Allergies No known drug allergies Medications Name Sig Start Date Stop Date Status Note LastModified by Organization Details LastModified Time furosemid e 40 mg tablet TAKE 1 AND ONE-HALF TABLET BY MOUTH IN THE MORNING AND TAKE 1 TABLET BY MOUTH IN THE AFTERNOO N 06/23 completed Not Available Not Available Not Available metolazon e 2.5 mg tablet PLEASE SEE ATTACHED FOR DETAILED DIRECTIO NS active Not Available Not Available No t Available atorvasta tin 40 mg tablet TAKE 1 TABLET BY MOUTH EVERY DAY active Not Available Not Available No t Available silver sulfadiaz ine 1 % topical cream APPLY A 1/16 INCH (1.5 MM) THICK LAYER TO ENTIRE BURN AREA BY TOPICALR OUTE 2 TIMES PER DAY 03/28 completed Not Available Not Available Not Available atorvasta tin 80 mg tablet TAKE 1 TABLET DAILY 07/14 completed Not Available Not Available Not Available gabapenti n 600 mg tablet TAKE 2 TABLETS BY MOUTH 3 TIMES A DAY active Not Available Not Available No t Available doxycycli ne hyclate 100 mg capsule TAKE 1 CAPSULE BY MOUTH TWICE A DAY FOR 14 DAYS 03/28 completed Not Available Not Available Not Available torsemide 20 mg tablet TAKE 2 TABLETS BY MOUTH 3 TIMES A DAY active Not Available Not Available No t Available trazodone 50 mg tablet TAKE 1 TABLET ONCE DAILY 09/20 completed Not Available Not Available Not Available cefpodoxi me 200 mg tablet TAKE ONE TABLET BY MOUTH TWICE A DAY FOR 10 DAYS 12/24 completed Not Available Not Available Not Available Iron (ferrous sulfate) 325 mg (65 mg iron) tablet Take 1 tablet every day by oral route. active Added from Hospital Not Available Not Available Not Available spironola ctone 100 mg tablet TAKE 1 TABLET BY MOUTH EVERY DAY active Not Available Not Available No t Available clopidogr el 75 mg tablet TAKE 1 TABLET BY MOUTH EVERY DAY 2023 active Not Available Not Available Not Avai lable amlodipin e 5 mg tablet Take 1 tablet every day by oral route as directed . active Not Available Not Available No t Available sulfameth oxazole 800 mg-trimet hoprim 160 mg tablet TAKE 1 TABLET BY MOUTH TWICE A DAY FOR 5 DAYS active Not Available Not Available No t Available aspirin 81 mg tablet,de layed release TAKE 1 TABLET BY MOUTH EVERY DAY 09/20 completed Not Available Not Available Not Available spironola ctone 25 mg tablet TAKE 1 TABLET BY MOUTH DAILY 09/20 completed Not Available Not Available Not Available pramipexo le 0.5 mg tablet TAKE 1 TABLET BY MOUTH TWICE A DAY 2023 active Not Available Not Available Not Avai lable torsemide 100 mg tablet TAKE 1 TABLET BY MOUTH EVERY DAY 06/23 completed Not Available Not Available Not Available tamsulosi n 0.4 mg capsule TAKE 1 CAPSULE BY MOUTH EVERY DAY DIRECTED FOR 90 DAYS active Not Available Not Available No t Available trazodone 100 mg tablet TAKE 2 TABLETS BY MOUTH EVERY DAY FOR 90 DAYS active Not Available Not Available No t Available amlodipin e 10 mg tablet TAKE 1 TABLET BY MOUTH EVERY DAY FOR 30 DAYS 12/24 completed Not Available Not Available Not Available gabapenti n 300 mg capsule TAKE 2 CAPSULES BY MOUTH 3 TIMES A DAY 03/28 completed Not Available Not Available Not Available lisinopri l 5 mg tablet 07/19 completed Not Available Not Available Not Available furosemid e 20 mg tablet TAKE 2 TABLETS BY MOUTH TWICE A DAY active Not Available Not Available No t Available mirtazapi ne 15 mg tablet TAKE 1 TABLET BY MOUTH EVERY DAY NEEDS 12/24 completed Not Available Not Available Not Available metoprolo l succinate ER 25 mg tablet,ex tended release 24 hr TAKE 1 TABLET BY MOUTH EVERY DAY active Not Available Not Available No t Available zolpidem 10 mg tablet 1 po qhs prn 09/20 completed Not Available Not Available Not Available albuterol sulfate HFA 90 mcg/actua tion aerosol inhaler INHALE 2 PUFFS INTO THE LUNGS EVERY 6 HOURS NEEDED FOR WHEEZE active Not Available Not Available No t Available doxycycli ne hyclate 100 mg tablet TAKE 1 TABLET BY MOUTH TWICE A DAY FOR 10 DAYS 02/08 completed Not Available Not Available Not Available naproxen 500 mg tablet TAKE 1 TABLET BY MOUTH EVERY 12 HOURS WITH FOOD OR MILK NEEDED FOR 30 DAYS 03/28 completed Not Available Not Available Not Available spironola ctone 50 mg tablet TAKE 1 TABLET BY MOUTH EVERY DAY 07/14 completed Not Available Not Available Not Available Laxative (bisacody l) 5 mg tablet,de layed release TAKE 4 TABLETS ORALLY DIRECTED 1 active Not Available Not Available No t Available valsartan 40 mg tablet TAKE 1 TABLET BY MOUTH TWICE DAILY 12/24 completed Not Available Not Available Not Available duloxetin e 30 mg capsule,d elayed release TAKE 1 CAPSULE BY MOUTH TWICE A DAY 01/23 completed Not Available Not Available Not Available eszopiclo ne 1 mg tablet TAKE 1 TABLET BY MOUTH EVERY DAY FOR 14 DAYS active Not Available Not Available No t Available pregabali n 150 mg capsule TAKE 1 CAPSULE BY MOUTH TWICE A DAY 06/12 completed Not Available Not Available Not Available pregabali n 200 mg capsule TAKE 1 CAPSULE BY MOUTH TWICE A DAY 01/23 completed Not Available Not Available Not Available ramelteon 8 mg tablet TAKE 1 TABLET BY MOUTH EVERYDAY AT BEDTIME 03/28 completed Not Available Not Available Not Available zolpidem ER 12.5 mg tablet,ex tended release,m ultiphase TAKE 1 TABLET BY MOUTH EVERY DAY 03/28 completed Not Available Not Available Not Available Lantus Solostar U-100 Insulin 100 unit/mL (3 mL) subcutane ous pen INJECT 28 UNITS EVERY DAY BY SUBCUTAN EOUS ROUTE AT BEDTIME, MAX OF 28 UNITS PER DAY OF LANTUS active Not Available Not Available No t Available Humalog KwikPen (U-100) Insulin 100 unit/mL subcutane ous PLEASE SEE ATTACHED FOR DETAILED DIRECTIO NS active Not Available Not Available No t Available oxycodone 10 mg tablet TAKE 1 TABLET BY MOUTH EVERY 4 TO 6 HOURS NEEDED FOR 7 DAYS. active Not Available Not Available No t Available GaviLyte- G 236 gram-22.7 4 gram-6.74 gram-5.86 gram oral solution 4000ML ORALLY DIRECTED 1 active Not Available Not Available No t Available melatonin 5 mg capsule Take 1 capsule every day by oral route in the evening. 03/28 completed OTC Not Available Not Available Not Available Eliquis 5 mg tablet TAKE 1 TABLET BY ORAL ROUTE FOR 30 DAYS. 2021 active Not Available Not Available Not Avai lable Probiotic 20 billion cell capsule Take 1 capsule every day by oral route. 02/19 completed Not Available Not Available Not Available Lactobaci llus acidophil us 2 billion cell tablet TAKE 1 TABLET BY MOUTH EVERY DAY active Not Available Not Available No t Available Farxiga 10 mg tablet TAKE 1 TABLET BY MOUTH EVERY DAY active Not Available Not Available No t Available UniStrip1 Test Strip Take 5 strips every day by miscell. route for 20 days. 2022 active Not Available Not Available Not Avai lable Entresto 97 mg-103 mg tablet Take 1 tablet every day by oral route for 30 days. 08/23 completed Not Available Not Available Not Available Entresto 49 mg-51 mg tablet TAKE 1 TABLET BY MOUTH TWICE A DAY active Not Available Not Available No t Available Entresto 24 mg-26 mg tablet TAKE 1 TABLET BY MOUTH TWICE A DAY 06/23 completed Not Available Not Available Not Available BD Marli 2nd Gen Pen Needle 32 gauge x 5/32 USE UP TO 5 NEEDLES PER DAY active Not Available Not Available No t Available Companion Canine Ultra2 Meter USE DIRECTED 2021 active Not Available Not Available Not Avai lable FreeStyle Meena 2 Sensor kit 12/24 completed Not Available Not Available Not Available Culturell e Ultimate 20 billion cell-200 mg capsule TAKE 1 CAPSULE BY MOUTH EVERY DAY 03/20 completed Not Available Not Available Not Available Soaanz 60 mg tablet TAKE 1 TABLET BY MOUTH TWICE A DAY 2023 active Not Available Not Available Not Avai lable Vitals Date Recorded Body height Body mass index (BMI) Body weight Heart rate Oxygen saturation Oxygen saturation in Arterial blood by Pulse oximetry Systolic blood pressure Diastolic blood pressure Provider Name and Address Organization Details Last Updated DateTime 3 185.42 cm 41.7 kg/m2 030934. 27 g 70 /min 98 % 98 % 130 mm[Hg] 60 mm[Hg] [facility] 3 09:43:33 Date Recorded Body height Body mass index (BMI) Body weight Heart rate Oxygen saturation Oxygen saturation in Arterial blood by Pulse oximetry Systolic blood pressure Diastolic blood pressure Provider Name and Address Organization Details Last Updated DateTime 4 185.42 cm 41.7 kg/m2 081594. 19 g 74 /min 96 % 96 % 138 mm[Hg] 82 mm[Hg] [facility] 4 11:36:43 Date Recorded Body height Body mass index (BMI) Body weight Heart rate Oxygen saturation Oxygen saturation in Arterial blood by Pulse oximetry Systolic blood pressure Diastolic blood pressure Provider Name and Address Organization Details Last Updated DateTime 4 185.42 cm 41.6 kg/m2 113957. 6 g 67 /min 97 % 97 % 116 mm[Hg] 76 mm[Hg] [facility] 4 10:34:31 Social History Question Answer Notes LastModified by Organizat ion Details LastModified Time Tobacco Smoking Status Former Smoker Toan horne [facility] 03/03/2024 11:37:33 What Was The Date Of Your Most Recent Tobacco Screening? 06/23/2024 [email or web address] Information not available 06/23/2024 Sex: Unknown Functional Status None recorded. Mental Status None recorded. Family History Nothing Reported. Medical History No medical history recorded. Immunizations Vaccine Type Date Status Note Provider Nam e and Address Organization Details Recorded Time Pneumococcal conjugate PCV 13 8 completed Not Available [facility] 12/23/2021 11:30:28 pneumococcal polysaccharide PPV23 9 completed Not Available [facility] 12/23/2021 11:30:28 zoster recombinant 5 completed Not Available [facility] 12/23/2021 11:30:28 COVID-19, mRNA, LNP-S, PF, 100 mcg/0.5mL dose or 50 mcg/0.25mL dose 1 completed Not Available [facility] 12/23/2021 11:30:28 COVID-19, mRNA, LNP-S, PF, 100 mcg/0.5mL dose or 50 mcg/0.25mL dose 1 completed Not Available [facility] 12/23/2021 11:30:28 COVID-19, mRNA, LNP-S, PF, 100 mcg/0.5mL dose or 50 mcg/0.25mL dose 2 completed Viv[facility] 09/20/2022 08:22:01 Past Encounters Encounter ID Performer Location Encounter Start Date Encounter Closed Date Diagnosis/Indication Diagnosis SNOMED-CT Code Diagnosis ICD10 Code Diagnosis Note [id number] Jeovanny Dgina Kong [facility] [address],[place] [address] 05/11/2021 09:44:03 05/11/2021 10:19:15 Pain of left shoulder joint 5047734252 4505260 M25.512 will need to check and see what can be done but we will need xr firstnapro xen not helpful Pain in left knee 398616 1151 30404 M25.562 pain has become severe ever since a fall >10 yrs ago has steadily gotten worse Blepharospasm 78602751 G 24.5 we will see if there are more specialist s in the area for a second opinion Obesity 641950099 E66.9 discussion [id number] Jeovanny Digna Kong [facility] [address],[place] [address] 06/06/2021 11:39:26 06/06/2021 12:16:08 Localized, primary osteoarthritis of the shoulder region 169131820 M19.019 will set up for antonio inj Osteoarthr itis of knee 168097860 M17.9 [place]tonio inj [id number] Jeovanny Kong [facility] [address],[place] [address] 06/12/2021 11:17:38 06/12/2021 11:35:51 Osteoarthritis of right knee joint 3149959105 00465 M17.11 antonio inj well kumar [id number] Jeovanny Kong [facility] [address],[place] [address] 06/29/2021 11:55:38 06/29/2021 12:30:49 Osteoarthritis of joint of left shoulder region 7541500786 48845 M19.012 antonio inj well kumar [id number] [facility] [address],[place] [address] 11/13/2021 11:48:43 11/13/2021 13:39:36 Osteoarthritis of right knee joint 0227090049 42619 M17.11 antonio inj well kumar [id number] EDY NELSON [facility] [address], [place] [address] 01/23/2022 14:50:56 01/25/2022 09:54:02 Jaundice 42694093 R17 will fu with lab testing for the new onset jaundice since d/c for acute nursing facility Essential hypertension 41670635 I10 will start low dose metoprolol for BP control Heart murmur 63903367 R0 1.1 fu check for new murmur diagnosed at [facility] Cellulitis of lower leg 512560886 L03.115 will start on doxy for 10 days BID for cellulitis fu on friday for wound care Clostridiu m difficile colitis 124019047 A04.72 was on vanco in the shelter facility Osteomyeli tis of left foot 5038870331 960845 M86.072 fu with me on friday Amputated toe 872909326 Z89.422 fu friday [id number] EDY NELSON [facility] [address], [place] [address] 01/25/2022 11:43:00 01/28/2022 14:35:01 Osteomyelitis of left foot 4869889148 728833 M86.072 fu with me on fri Amputated toe 023230720 Z89.422 fu wed Cellulitis 027717580 L03 .031 continue on doxy [id number] EDY NELSON [facility] [address], [place] [address] 01/30/2022 09:43:35 01/30/2022 16:47:27 Amputated toe 963049863 Z89.422 fu with wound care Clostridiu m difficile colitis 184510625 A04.72 will start on pro-biotic Type 2 vega betes mellitus 63628233 E11.9 [place] [id number] Jeovanny Kong DO [facility] [address] [facility] [address], [place] [facility] [place] [address] 02/19/2022 11:50:40 02/19/2022 12:39:50 Active or passive immunization [id number] Z23 Adult heal th examination 831932402 Z00.01 we are going to get lab next visitcont to have VNA change dressings as he is healing wellstill has not gotten hip xr as he cxld it Degenerati on of lumbar intervertebral disc 70690515 M51.36 Essential hypertension 01359449 I10 he will stop the metoprolol due to fatigue and rechk in a few weeks Insomnia 254298911 G47.0 0 [id number] Jeovanny Kong [facility] [address] [facility],[place] [address] 03/20/2022 11:09:12 03/20/2022 16:56:56 Type 2 diabetes mellitus 29152834 E11.9 needs lab to see how bad it is Essential hypertension 06441841 I10 home bps are respectabl e now with amlodipine will cont to follow Heart murmur 93845392 R0 1.1 he has an echo scheduled but is only for next month Left leg p eripheral neuropathy 3069579298 70160 G62.9 occ exacerbate s Blepharospasm 28591607 G 24.5 getting botox inj which have been helpful but now has to go to a dr at [facility] as current dr not using botox any more [id number] Jeovanny Kong [facility] [address] [facility] [address],[place] [address] 05/01/2022 11:58:04 05/01/2022 12:57:28 Type 2 diabetes mellitus 15461888 E11.9 needs lab to see how bad it is Essential hypertension 00359806 I10 home bps are respectabl e now with amlodipine will cont to follow Active or passive immunization 685672434 Z23 due for shingles, patient advised Severe aor tic valve stenosis 963448674 I35.0 will be seeing interventi onal cardiology for valve repair [id number] Jeovanny Kong [facility] [address] [facility],[place] [address] 05/17/2022 15:17:11 05/17/2022 16:17:10 Osteoarthritis of right knee joint 1361097499 30270 M17.11 antonio inj well kumar Essential hypertension 09831550 I10 home bps are respectabl e now with amlodipine will cont to follow [id number] EDY NELSON [facility] [address],[place] [address] 07/02/2022 14:52:22 07/02/2022 15:49:01 Aortic valve stenosis 08319001 I35.0 severe aortic valve stenosiswi ll be having replacemen t in July Essential hypertension 30435755 I10 will start low dose metoprolol for BP control Type 2 vega betes mellitus 85532141 E11.9 will recheck blood work at this time Benign pro static hyperplasia 802079108 N40.0 will recheck his PSA [id number] EDY NELSON [facility] [address] [facility] [address],[place] [address] 07/19/2022 14:49:25 07/19/2022 15:29:19 Congestive heart failure 73970820 I50.21 will up his entresto to 97-103 mg, some time Aortic valve stenosis 60 248448 I35.0 severe aortic valve stenosiswi ll be having replacemen t in July [id number] EDY NELSON [facility] [address] [facility] [address],[place] [address] 08/14/2022 09:16:55 08/14/2022 16:19:03 Congestive heart failure 15211017 I50.21 on the higher dose of entrestowi ll increase his spironolac tone to 50 mg, keep lasix the sametrying to make him more comfortabl e prior to surgery [id number] EDY NELSON [facility] [address] [facility] [address],[place] [address] 09/20/2022 09:55:29 09/23/2022 12:24:04 Insomnia 581489582 G47.00 will adjust meds History of aortic valve replacement 2573179324 100 Z95.4 much improved [id number] Jeovanny Kong, [facility] [address] [facility] [address],[place] [address] 11/04/2022 14:53:08 11/04/2022 15:28:47 Severe aortic valve stenosis 320341579 I35.0 will be seeing interventi onal cardiology for valve repair Type 2 vega betes mellitus 24103737 E11.9 needs lab to see how bad it is Essential hypertension 86021060 I10 home bps are respectabl e now with amlodipine will cont to follow Congestive heart failure 99277327 I50.21 currently stable no overt failure no evid of vol overload at this time with EF of 20%going for cardiac rehab through [facility] dr will be going up to [facility] as it is closer [id number] Jeovanny Kong DO [facility] [address] [facility],[place] [address] 12/20/2022 08:46:25 12/23/2022 16:00:06 Type 2 diabetes mellitus 10282794 E11.9 needs lab to see how bad it ishe is checking his glucose 5 x per day and this is getting too expensive for him and the sugars are uncontroll ed prob because of the foot woundwe need to get him a dexcom or meena to help him control his sugar Congestive heart failure 83097597 I50.21 currently stable no overt failure no evid of vol overload at this time with EF of 20%going for cardiac rehab through [facility] dr will be going up to [facility] as it is closer Aortic valve stenosis 60 219308 I35.0 seems stable with no symptoms Osteomyeli tis of left foot 0216922342 158984 M86.072 cont with wound care so far is no infection Amputated toe 164653985 Z89.422 stable [id number] Jeovanny Kong DO [facility] [address] [facility],[place] [address] 01/03/2023 09:26:34 01/03/2023 15:18:03 Degenerative joint disease of shoulder region 89773893 M19.019 well tolerated [id number] EDY NELSON [facility] [address] [facility],[place] [address] 03/28/2023 09:32:19 03/28/2023 16:32:55 Active or passive immunization 943830398 Z23 stable Adult heal th examination 440984228 Z00.00 BP is finefollow s with gen surg and wound care Insomnia 672221746 G47.0 0 stopped ambien, no effect with trazodone or remeron Diarrhea 88673919 R19.7 related to hospital stayloose, not watery (unlikely C diff, has been screened to that)and has been treated for that prior, not the same presentati on [id number] EDY NELSON [facility] [address] [facility] [address],[place] [address] 12/24/2023 08:25:49 12/24/2023 09:27:22 Type 2 diabetes mellitus 35450931 E11.9 stable in hospital Osteomyeli tis of left foot 1901043735 257230 M86.072 resolved Amputated toe 883354281 Z89.422 fu with wound care and surgeonR and L foot now Acute syst olic heart failure 843825908 I50.21 stable [id number] EDY NELSON [facility] [address] [facility] [address],[place] [facility] [place] [address] 03/03/2024 11:27:19 03/03/2024 13:28:26 Acute systolic heart failure 644541305 I50.21 stable Chronic ki dney disease stage 3 502397716 N18.30 will Congestive heart failure 94063125 I50.21 on the higher dose of entrestowi ll increase his spironolac tone to 50 mg, keep lasix the sametrying to make him more comfortabl e prior to surgery Osteomyeli tis of right foot 6172188742 698479 M86.311 will set up with recheck blood work and XR Hypokalemia 25432805 E87 .6 will recheck his levels [id number] EDY NELSON [facility] [address] [facility] [address],[place] [address] 06/23/2024 10:24:19 06/28/2024 09:51:15 Depression screening 874065797 Z13.31 negative Amputated toe 793769226 Z89.421 will set up with prosthetic referral Benign pro static hyperplasia with outflow obstruction 826841485 N40.1 will restart on tamsulosin Insomnia 765158327 G47.0 0 will try higher dose of trazodone Health Concerns Section Related Observation LastModified by Organization Detai ls LastModified Time None Recorded Concern Status LastModified by Organization Details LastModified Time None Recorded Advance Directives Directive None Recorded Payers Encounter Date Sequence Insurance Name Policy Number Policy Savage Covered Member ID Savage Member ID Guarantor Name 01/03/[address] [facility] - MEDICARE PREFERRED (MEDICARE REPLACEMENT HMO) TOM Leggettert Wesley Montena [id number] 1 Stephane Montena 03/28/[address] [facility] - MEDICARE PREFERRED (MEDICARE REPLACEMENT HMO) TOM Leggettert F Montena [id number] 1 Stephane Montena 12/24/2023 1 [facility] PLAN - MEDICARE PREFERRED (MEDICARE REPLACEMENT HMO) TOM Leggettert F Montena [id number] 1 Stephane Montena 03/03/2024 1 [facility] PLAN - MEDICARE PREFERRED (MEDICARE REPLACEMENT HMO) TOM Leggettert F Montena [id number] 1 Stephane Montena 06/23/[address] [facility] - MEDICARE PREFERRED (MEDICARE REPLACEMENT HMO) TOM Leggettert Wesley Montena [id number] 1 Stephane Montena Notes Date Note Type Note Provider Name a tx Address Organization Details Recorded Time 3 text/html here for his shoulder antonio injhas been struggling from the pain Jeovanny Kong, DO [address] [place] [address], [place], [address] 01/03/2023 12:39:03 3 text/html Annual WellnessReported bypatient.Diet and Nutrition:healthy diet; discussed vitamin and supplement use; discussed portion control; discussed maintaining calcium balance; discussed diet improvement Fracture Risk:no history of fractures; no recent explained fracture; no sudden unexplained fractures; no previous musculoskeletal injuries; no recent falls doing fine, no weakness or frailty has a crutch Physical Activity:discussed weightbearing activities; discussed exercise habits Additional Lifestyle Factors:no tobacco use; drinks alcohol (mild-moderate) Depression Risk:never feels sad, empty, or tearful; no loss of interest in activities; no significant changes in weight; no sleep disturbances or insomnia; no agitation; no loss of energy; no feelings of worthlessness or guilt; no thoughts of suicide; no history of depression; no history of mood disorders Hearing:no loss of hearing Vision:no vision problems breathing has improvedthe patient reports that he is still seeing [facility] general surgerythe patient has had more tissue removedhad wound vac, which worked better this timecleaned and dressed [id number] toe amputation no signs of infection EDY NELSON [address] [place], [address], [facility] 03/28/2023 10:09:47 4 text/html hospital d/c The patient is participating in this appointment via telemedicine communication with a phone call/video calling service ([employer])The patient consents to use of these platforms in place of an in-person appointment due to either sick symptoms the patient is presenting with or current office closure due to COVID exposure in order to keep our office staff and patients safe the patient was in the hospital for right toe osteomyelitis, distal fifth metatarsalthe patient was being followed by wound carewound worsened, ended up in the ED, with surgical consult with general surgeryamputation of most of the toes on his right foot the patient is doing well right nowhas VNA coming in every other day the patient reports that he is feeling okaypatient is appropriate pain control using crutches right now as needed medication corrected in chartno issues today will call if he develops a fever, rash, purulent discharge has fu with surgeon for suture removal next week EDY NELSON [address] [facility], [place], [address], [facility] 12/24/2023 09:24:15 4 text/html hospital d/c the patient was discharged from the hospital the patient is getting dizzy occasionallythe patient reports that it happens when he gets up to fastthe patient is otherwise not dizzy breathing okay per patientno chest painno fevers no chills right foot osteomyelitis; finished 6 week course of abx, told to fu here or with ID, no ID referral or doctor on patient's list will recheck XR and have fu blood work to check levels of his WBChas wound care coming in consistently so they can also monitor his foot has fu with wound care today as well taking all his medication, watching sodium intake will set u pwith lab workand fu with patient after needs handicap EDY Beavers [address] [place], [address], [facility] 03/03/2024 12:13:58 4 text/html TCM patient has been in and out of the hospital for ongoing cardiac issues and infected ulcers of the foot (R) with amputation of his toescurrently has wound care coming to the house, as a wound Vac placed currentlythe patient reports he feels okay, no fever, no chills the patient reports that he will need a prosthetic for the loss of toes, bilaterally size, the patient agrees to referral will continue on current medicationsmed list reported in the chart as he is taking it now denies chest pain, no sob the patient needs refill of the tamsulosin will increase the dose of the trazodone to see if it is more effective set up with dorindaattila for his car no side effects to his medication BP is excellent EDY NELSON [address] [place], [address], [facility] 06/23/2024 11:02:23
--- OUTSIDE RECORDS SUMMARY | 2024-12-23 17:58 | XMS_ITS | Clinical Summary ---
Author Organization [facility] Address [address] [place] [address] Care Team Providers Care Travel Manager Name Role Phone Jeovanny Kong Primary Care Provider [phone] Allergies No known active allergies Medications pramipexole (MIRAPEX) 0.5 mg tablet 11/01/2021 Active gabapentin (NEURONTIN) 600 mg tablet Take 2 tablets by mouth 3 times a day. 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 He has had symptoms since 2012. He has been getting botulinum injections for the past 7-8 years which has been effective in reducing severity and frequency of spasms. However, the practice is no longer offering it so he is looking to establish care here. He last had injections 7-8 months ago. He has severe blepharospasm and also oromandibular dystonia. He is holding his eyes open through the visit. No signs of parkinsonism. Advised him to call previous practice and have injection notes faxed to our office. -therapy plan for onabotulinum toxin (Botox) placed -consider 1:1 dilution if it has not been tried yet -follow-up in [facility] once [place] approved RLS (restless legs syndrome) 12/05/2021 Assessment & Plan (12/05/2021 11:55 AM EST): He is on pramipexole 0.5mg at bedtime for RLS. Encounters Date Type Department Care Team Description 11/26/2024 Orders Only [facility] [address] [place], [place] [id number] Jamaica Werner MD from Last 3 Months Social History Tobacco [...] Orientation Straight 12/05/2021 11 :52 AM EST Last Filed Vital Signs Vital Sign Reading Time Taken Comments Blood Pressure 181/83 12/05/2021 8:37 AM EST Pulse 79 12/05/2021 8:37 AM EST Temperature 36.6 ??C (97.8 ??F) 12/05/2021 8:35 AM ES T Respiratory Rate 18 12/05/2021 8:35 AM EST Oxygen Saturation - - Inhaled Oxygen Concentration - - Weight 139.7 kg (308 lb) 12/05/2021 8:35 AM EST Height 180.3 cm (5' 11 ) 12/05/2021 8:35 AM EST Body Mass Index 42.96 12/05/2021 8:35 AM EST Plan of Treatment Health Maintenance Due Date Last Done Comments Cologuard 1950 Colonoscopy 1950 Hepatitis C Screening 1950 Sigmoidoscopy 1950 DTaP,Tdap,and Td Vaccines (1 - Tdap) 1972 RSV Vaccine (60+ years old a nd patients) (1 - Risk 60-74 years 1-dose series) 2010 Zoster Vaccines (3 of 3) 11/18/2015 015, 09/23/2015 COVID-19 Vaccine (4 2023-2 5 season) 2024 01/01/2022, 05/18/2021, 04/20/2021 Influenza Vaccine (#1) 2024 08/20/2018 Alcohol/Substance Use Screening 11/24/2024 Depression Screening and Follow-Up 11/24/2024 Health Care Proxy Review 11/24/2024 Social Drivers of Health Annual Screening 11/24/2024 Colon Cancer Screening 01/17/2025 FOBT / Fit Test 01/17/2025 01/17/2024 Pneumococcal Vaccine: 65+ Years Completed 09/10/2019, 08/20/2018 Hepatitis B Vaccines Aged Out No long er eligible based on patient's age to complete this topic [place] [address] [address] [place] [address] Care Teams Travel Manager Relationship Specialty Start Date End Date Jeovanny Kong [address] [place] [address] PCP - General Internal Medicine 11/12/21
--- OUTSIDE RECORDS SUMMARY | 2024-12-23 17:58 | XMS_ITS | Referral Summary ---
Author Organization [facility] Address [address] [place] [address] Care Team Providers Care Cps Team Lead Name Role Phone Jeovanny Kong Primary Care Provider [phone] Encounters Date Type Department Care Team Description 11/26/2024 Orders Only [facility] [address] [place] [address] Jamaica Werner MD from Last 3 Months Allergies No known active allergies Medications pramipexole [...] has not been tried yet -follow-up in [facility] once [place] approved RLS (restless legs syndrome) 12/05/2021 Assessment & Plan (12/05/2021 11:55 AM EST): He is on pramipexole 0.5mg at bedtime for RLS. Social History Tobacco Use Types Packs/Day Years [...] 12/05/2021 8:35 AM EST Plan of Treatment Not on file Insurance [facility] Care Teams Cps Team Lead Relationship Specialty Start Date End Date Jeovanny Kong [address] [place] [address] PCP - General Internal Medicine 11/12/21
--- OUTSIDE RECORDS SUMMARY | 2024-12-23 17:58 | XMS_ITS | Encounter Summary ---
Author Organization [facility] Address [address] [place] [address] Care Team Providers Care Ms Sql Dba Name Role Phone Jeovanny Kong Primary Care Provider [phone] Encounter Details Date Type Department Care Team (Late st Contact Info) Description 11/26/2024 Orders Only [facility] [address] [place] [address] Jamaica Werner MD [address] [place], [place] [id number] Social History Tobacco Use Types Packs/Day Years [...] on filedocumented in this encounter Care Teams Ms Sql Dba Relationship Specialty Start Date End Date Jeovanny Kong [address] [place] [phone] PCP - General Internal Medicine 11/12/21 documented as of this encounter
--- OUTSIDE RECORDS SUMMARY | 2024-12-23 17:59 | XMS_ITS ---
Author Organization [facility] on Address Unknown Problems Problem Status Start Date End Date ENCOUNTER FOR ORTHOPEDIC AFT ERCARE FOLLOWING SURGICAL AMPUTATION (Primary) (Z47.81 - ICD-10-CM) RESOLVED 11/22/2023 01/03/2024 TYPE 2 DIABETES MELLITUS WIT H DIABETIC NEUROPATHY, UNSPECIFIED (E11.40 - ICD-10-CM) RESOLVED 11/22/2023 024 PERIPHERAL VASCULAR DISEASE, UNSPECIFIED (I73.9 - ICD-10-CM) RESOLVED 11/22/2023 01/03/2024 UNSPECIFIED ATRIAL FIBRILLATION (I48.91 - ICD-10-CM) R ESOLVED 11/22/2023 01/03/2024 UNSPECIFIED ASTHMA, UNCOMPLI CATED (J45.909 - ICD-10-CM) RESOLVED 11/22/2023 01/03/2024 ACUTE KIDNEY FAILURE, UNSPECIFIED (N17.9 - ICD-10-CM) RESOLVED 11/22/2023 01/03/2024 UNSPECIFIED SYSTOLIC (CONGES TIVE) HEART FAILURE (I50.20 - ICD-10-CM) RESOLVED 11/22/2023 01/03/2024 ISCHEMIC CARDIOMYOPATHY (I25.5 - ICD-10-CM) RESOLVED 11/22/2023 01/03/2024 PARKINSON'S DISEASE WITHOUT DYSKINESIA, WITHOUT MENTION OF FLUCTUATIONS (G20.A1 - ICD-10-CM) RESOLVED 11/22/2023 01/03/2024 MORBID (SEVERE) OBESITY DUE TO EXCESS CALORIES (E66.01 - ICD-10-CM) RESOLVED 11/22/2023 01/03/2024 PRESENCE OF PROSTHETIC HEART VALVE (Z95.2 - ICD-10-CM) RESOLVED 11/22/2023 01/03/2024 SUBACUTE OSTEOMYELITIS, RIGH T ANKLE AND FOOT (M86.271 - ICD-10-CM) RESOLVED 11/22/2023 01/03/2024 ESSENTIAL (PRIMARY) HYPERTENSION (I10 - ICD-10-CM) RES OLVED 11/22/2023 01/03/2024 ATHEROSCLEROTIC HEART DISEAS E OF [place] CORONARY ARTERY WITHOUT ANGINA PECTORIS (I25.10 - ICD-10-CM) RESOLVED 11/22/20 23 01/03/2024 HYPERLIPIDEMIA, UNSPECIFIED (E78.5 - ICD-10-CM) ACTIVE 11/22/2023 PRESENCE OF CARDIAC PACEMAKER (Z95.0 - ICD-10-CM) ACTI VE 11/22/2023 Encounters Encounter Performer Performer Role Encounter Diagnoses Location Date Discharge - Discharged to home or self care - [employer] [facility] - Private home/apt. with home health services [facility] 11/22/2023 12:20 pm EST - 12/20/2023 10:21 am EST Discharge - Discharged to home or self care - [facility] - Private home/apt. with home health services [facility] 01/03/2024 01:07 pm EST - 01/14/2024 03:30 pm EST Immunizations Vaccine Date Influenza TB 1 Step Mantoux (PPD) 12/16/2023 08:00 pm EST Zostavax(Shingles) 09/23/2015 12:00 am EDT Pneumococcal Conjugate Vaccine (PCV13) 0 08/20/2018 12:00 am EDT Pneumococcal Polysaccharide Vaccine (PPS V23) 09/10/2019 12:00 am EDT SARS-COV-2 (COVID-19) 01/01/2022 12:00 a m EST Prevnar 20 Pneumococcal conjugate (PCV20 ) SARS-COV-2 (COVID-19 BOOSTER) RSV, bivalent, protein subunit RSVpreF, diluent rec Social History
--- OUTSIDE RECORDS SUMMARY | 2024-12-23 17:59 | XMS_ITS | Encounter Summary ---
Author Organization [facility] Address [address] [place] [address] Care Team Providers Care Bulk Plant Agent Name Role Phone Jessica Feldman MD Primary Care Provider + Encounter Details Date Type Department Care Team (Late st Contact Info) Description 12/10/2024 Lab Requisition [facility] - Main Lab [address] [place] [address] Jessica Feldman MD [address] [address] Acute on chronic combined systolic (congestive) and [...] Associated Diagnosis Comments COMPLETE BLOOD COUNT Routine 12/13/2024 9:19 AM EST 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) COMPREHENSIVE METABOLIC PANEL Routine 12/13/2024 9:19 AM EST 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) documented in this encounter Results * (ABNORMAL) Comprehensive metabolic panel (12/13/2024 9:19 AM EST) Sodium 138 133 - 145 mmol/L LAB CHEMISTRY METHOD 12/13/2024 3:06 PM EST [facility] Potassium 4.1 3.5 - 5.5 mmol/L LAB CHEMISTRY METHOD 12/13/2024 3:06 PM EST [facility] Chloride 102 96 - 110 mmol/L LAB CHEMISTRY METHOD 12/13/2024 3:06 PM [facility] CO2 30 21 - 32 mmol/L LAB CHEMISTRY METHOD 12/13/2024 3:06 PM [facility] Anion Gap 6 3 - 11 LAB CHEMISTRY METHOD 12/13/2024 3:06 PM [facility] Glucose 131(H) 70 - 100 mg/dL LAB CHEMISTRY METHOD 12/13/2024 3:06 PM [facility] BUN 41(H) 5 - 25 mg/dL LAB CHEMISTRY METHOD 12/13/2024 3:06 PM [facility] Creatinine 1.86(H) 0.70 - 1.30 mg/dL LAB CHEMISTRY METHOD 12/13/2024 3:06 PM [facility] eGFR 38(L) >=60 mL/min/1. 73m2 LAB CHEMISTRY METHOD 12/13/2024 3:06 PM [facility] Comment:Calculation based on the??Chronic Kidney Disease Epidemiology Collaboration (CKD-EPI) equation refit??without adjustment for race. BUN/Creatinine Ratio 22.0 LAB CHEMISTRY METHOD 12/13/2024 3:06 PM [facility] Calcium 8.9 8.5 - 10.5 mg/dL LAB CHEMISTRY METHOD 12/13/2024 3:06 PM [facility] AST (SGOT) 13 10 - 42 unit/L LAB CHEMISTRY METHOD 12/13/2024 3:06 PM [facility] ALT (SGPT) 17 10 - 60 unit/L LAB CHEMISTRY METHOD 12/13/2024 3:06 PM [facility] Alkaline Phosphatase 112 42 - 121 unit/L LAB CHEMISTRY METHOD 12/13/2024 3:06 PM [facility] Total Protein 7.7 6.0 - 8.0 g/dL LAB CHEMISTRY METHOD 12/13/2024 3:06 PM [facility] Albumin 3.5 3.2 - 5.0 g/dL LAB CHEMISTRY METHOD 12/13/2024 3:06 PM [facility] Total Bilirubin 0.6 0.0 - 1.4 mg/dL LAB CHEMISTRY METHOD 12/13/2024 3:06 PM [facility] Blood Venous blood specimen / Unknown Venipuncture / Unknown 12/13/2024 9:19 AM EST 12/13/2024 12:26 PM EST Jessica Feldman MD LAB BLOOD [facility] BL[facility] [address] [place] [address], * (ABNORMAL) Complete blood count (12/13/2024 9:19 AM EST) WBC 4.5(L) 4.8 - 10.8 K/mcL LAB HEMETOLOGY METHOD 12/13/2024 1:30 PM [facility] RBC 3.40(L) 4.50 - 5.50 M/mcL LAB HEMETOLOGY METHOD 12/13/2024 1:30 PM [facility] Hemoglobin 9.3(L) 13.5 - 17.5 g/dL LAB HEMETOLOGY METHOD 12/13/2024 1:30 PM [facility] Hematocrit 31.7(L) 42.0 - 54.0 % LAB HEMETOLOGY METHOD 12/13/2024 1:30 PM [facility] MCV 93.2 79.0 - 98.0 FL LAB HEMETOLOGY METHOD 12/13/2024 1:30 PM [facility] MCH 27.4 27.0 - 32.0 pcg LAB HEMETOLOGY METHOD 12/13/2024 1:30 PM [facility] MCHC 29.3(L) 32.0 - 37.0 g/dL LAB HEMETOLOGY METHOD 12/13/2024 1:30 PM EST [facility] RDW 17.6(H) 11.0 - 15.0 % LAB HEMETOLOGY METHOD 12/13/2024 1:30 PM [facility] Platelets 181 130 - 400 K/mcL LAB HEMETOLOGY METHOD 12/13/2024 1:30 PM EST [facility] MPV 10.1 7.0 - 11.0 FL LAB HEMETOLOGY METHOD 12/13/2024 1:30 PM EST [facility] NRBC 0.0 <1.0 % LAB HEMETOLOGY METHOD 12/13/2024 1:30 PM [facility] NRBC Absolute 0.00 <0.10 K/mcL LAB HEMETOLOGY METHOD 12/13/2024 1:30 PM [facility] Blood Venous blood specimen / Unknown Venipuncture / Unknown 12/13/2024 9:19 AM EST 12/13/2024 12:26 PM EST Jessica Feldman MD LAB BLOOD [facility] BL[facility] [address] [place] [address], documented in this encounter Visit Diagnoses Diagnosis 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) documented in this encounter Care Teams Bulk Plant Agent Relationship Specialty Start Date End Date Jessica Feldman MD [address] [place] [phone] PCP - General Family Medicine 10/01/24 documented as of this encounter
--- OUTSIDE RECORDS SUMMARY | 2024-12-23 17:59 | XMS_ITS | Data Portability ---
Author Organization [facility], Main Office Address [address] [place] [address] Care Team Providers Care Mannequin Decorator Name Role Phone JOHAN NDIAYE Primary Care Provider [phone] SHANTELL SADLER ([place]) OTHER Assessment Encounter Date Assessment Date Assessment LastModified by Organization Details LastModified Time 05/03/2024 05/03/202404/26: na 136, k 4.1, bun 29, creat 1.20, wbc 6.09, hgb 7.6 05/03, wbc 7.50, hgb 7.3, hct 24.3 glord Not available 05/03/2024 13:57:37 05/05/2024 05/05/202404/26: na 136, k 4.1, bun 29, creat 1.20, wbc 6.09, hgb 7.6 10, wbc 7.50, hgb 7.3, hct 24.3 05/05: wbc 6.23, hgb 7.7, hct 25.9, glord Not available 05/05/2024 11:09:09 05/10/2024 05/10/202404/26: na 136, k 4.1, bun 29, creat 1.20, wbc 6.09, hgb 7.6 10, wbc 7.50, hgb 7.3, hct 24.3 05/05: wbc 6.23, hgb 7.7, hct 25.9, glord Not available 05/10/2024 10:05:37 05/12/2024 05/12/202404/26: na 136, k 4.1, bun 29, creat 1.20, wbc 6.09, hgb 7.6 6/10, wbc 7.50, hgb 7.3, hct 24.3 05/05: wbc 6.23, hgb 7.7, hct 25.9, 04/26: na 136, k 4.1, bun 29, creat 1.20, wbc 6.09, hgb 7.6 6/10, wbc 7.50, hgb 7.3, hct 24.3 glord Not available 05/12/2024 07:15:07 05/13/2024 05/13/202404/26: na 136, k 4.1, bun 29, creat 1.20, wbc 6.09, hgb 7.6 10, wbc 7.50, hgb 7.3, hct 24.3 05/05: wbc 6.23, hgb 7.7, hct 25.9, 04/26: na 136, k 4.1, bun 29, creat 1.20, wbc 6.09, hgb 7.6 10, wbc 7.50, hgb 7.3, hct 24.3 glord Not available 05/13/2024 11:54:25 Plan of Treatment Reminders Order Date Submit Date Provider Last Modified By Organization Details Last Modified Time Details Appointments None record ed. Lab None record ed. Referral None record ed. Procedures None record ed. Surgeries None record ed. Imaging None record ed. Medication Orders None record ed. Patient TargetsNo targets recorded. Patient InstructionsNo instructions recorded. Reason for Referral None Reported. Problems Name Problem SNOMED Code Status Onset Date Resolution Date Notes Provider Name and Address Organization Details Recorded Time Diabetes mellitus 59605614 Active [address], [address], [place], [address], [facility] 4 09:09:06 Hyperlipide reyes 48471762 Active [address], [address], [place], [address], [facility] 4 09:09:11 Congestive heart failure 08546768 Active [address], [address], [place], [address], [facility] 4 09:11:17 Myocardial infarction 01518594 Active [address], [place], [address], [place] [facility] 4 09:11:23 Transcathet er aortic valve implantatio n Active [address], [place], [address], [facility] 4 09:11:40 Essential hypertensio n 60766382 Active [address], [place], [address], [facility] 4 09:11:46 Atrial fibrillatio n 65617319 Active [address], [address], [place], [address], [facility] 4 09:12:01 Peripheral arterial disease 631375836 Active [address], [address], [place], [address], [facility] 4 09:12:19 Neuropathy due to diabetes mellitus 922921974 Active [address], [address], [place], [address], [facility] 4 09:12:29 Anemia 344041912 Active [address], [address], [place], [address], [facility] 4 14:31:15 Restless legs 34461258 Active [address], [address], [place], [address], [place] [facility] 4 14:31:31 Peripheral vascular disease 416827182 Active [address], [address], [place], [address], [facility] 4 21:47:32 Parkinson's disease 48638826 Active [address], [address], [place], [address], [facility] 4 21:51:02 Surgical incision wound of skin 169316219119 Active 2023 right foot CLINT JOLYNN, [employer] [address], [address], [place], [address], [facility] 4 10:16:04 Osteomyelit is 27544960 Active 2023 CAR[address] LORD [address], [address], [place], [address], [facility] 4 12:31:49 Chronic kidney disease 896985067 Active [address]23 [address] LORD [address], [address], [place], [address], [facility] 4 12:34:11 Adult failure to thrive syndrome 634261864 Active 2023 CARLOS [facility] [address], [address], [place], [address], [facility] 4 12:35:26 Pain in upper limb 654540451 Active 2023 CARLOS LORD [address], [address], [place], [address], [facility] 4 12:10:19 Problem Notes None recorded. Medical Equipment None Reported. Allergies No known drug allergies Medications Name Sig Start Date Stop Date Status Note LastModified by Organization Details LastModified Time atorvastati n 40 mg tablet TAKE 1 TABLET BY MOUTH EVERY DAY active Not Available Not Available No t Available gabapentin 600 mg tablet TAKE 2 TABLETS BY MOUTH 3 TIMES A DAY active Not Available Not Available No t Available torsemide 20 mg tablet TAKE 1 TABLET BY MOUTH 2 (TWO) TIMES A DAY (ONCE IN THE MORNING AND ONCE IN THE AFTERNOON ). active Not Available Not Available No t Available spironolact one 100 mg tablet TAKE 1 TABLET BY MOUTH EVERY DAY active Not Available Not Available No t Available Lantus U-100 Insulin 100 unit/mL subcutaneou s solution 04/25 completed Not Available Not Available Not Available clopidogrel 75 mg tablet TAKE 1 TABLET BY MOUTH EVERY DAY active Not Available Not Available No t Available tramadol 50 mg tablet Take 1 tablet every 6 hours by oral route as needed. 04/25 completed Not Available Not Available Not Available pramipexole 0.5 mg tablet TAKE 1 TABLET BY MOUTH TWICE A DAY 04/25 completed Not Available Not Available Not Available torsemide 100 mg tablet TAKE 1 TABLET BY MOUTH EVERY DAY 04/25 completed Not Available Not Available Not Available tamsulosin 0.4 mg capsule TAKE 1 CAPSULE BY MOUTH EVERY DAY DIRECTED FOR 90 DAYS active Not Available Not Available No t Available trazodone 100 mg tablet TAKE 2 TABLETS BY MOUTH EVERY DAY FOR 90 DAYS active Not Available Not Available No t Available furosemide 20 mg tablet 04/25 completed Not Available Not Available Not Available mirtazapine 15 mg tablet 04/25 completed Not Available Not Available Not Available metoprolol succinate ER 25 mg tablet,exte nded release 24 hr 04/25 completed Not Available Not Available Not Available levofloxaci n 750 mg tablet 04/25 completed Not Available Not Available Not Available oxycodone 5 mg tablet Take 1 tablet every 6 hours by oral route as needed. 04/25 completed Not Available Not Available Not Available Lantus Solostar U-100 Insulin 100 unit/mL (3 mL) subcutaneou s pen INJECT 28 UNITS EVERY DAY BY SUBCUTANE OUS ROUTE AT BEDTIME,M AX OF 28 UNITS PER DAY OF LANTUS active Not Available Not Available No t Available Humalog KwikPen (U-100) Insulin 100 unit/mL subcutaneou s PLEASE SEE ATTACHED FOR DETAILED DIRECTION S active Not Available Not Available No t Available oxycodone 10 mg tablet TAKE 1 TABLET BY MOUTH EVERY 4 TO 6 HOURS NEEDED FOR 7 DAYS. 04/25 completed Not Available Not Available Not Available Farxiga 10 mg tablet TAKE 1 TABLET BY MOUTH EVERY DAY active Not Available Not Available No t Available Entresto 49 mg-51 mg tablet TAKE 1 TABLET BY MOUTH TWICE A DAY active Not Available Not Available No t Available Entresto 24 mg-26 mg tablet 04/25 completed Not Available Not Available Not Available Vitals None Recorded Social History Question Answer Notes LastModified by Organizat ion Details LastModified Time Tobacco Smoking Status Former Smoker quit [address], [address], [place], [address], [facility] 11/24/2023 14:32:11 Do You Have An Advance Directive? Yes Information not available 11/24/2023 What Is Your Level Of Alcohol Consumption? None Information not available 11/24/2023 What Is Your Code Status? Full Code Information not available 11/24/2023 Legal Guardian? No Informati on not available 11/24/2023 Do You Have A Medical Power Of Independent Living Specialist? No Information not available 11/24/2023 Do You Have An Out Of Hospital DNR? No Information not available 11/24/2023 Do You Use Any Illicit Or Recreational Drugs? No Information not available 11/24/2023 Has Tobacco Cessation Counseling Been Provided? No Information not available 11/24/2023 Do You Or Have You Ever Used Any Other Forms Of Tobacco Or Nicotine? No Information not available 11/24/2023 Sex: Male Functional Status None recorded. Mental Status None recorded. Family History Relationship Description Onset Age of this Age Resolved Age Notes LastModified by Organization Details LastModified Time Father No current problems or disability glord Not available 11/24 14:31:44 Mother No current problems or disability glord Not available 11/24 14:31:45 Notes:n/c Medical History No medical history recorded. Immunizations Vaccine Type Date Status Note Provider Nam e and Address Organization Details Recorded Time SARS-COV-2 (COVID-19) vaccine, UNSPECIFIED 2 completed Nadia horne [facility] 11/27/2023 12:48:51 Pneumococcal conjugate PCV 13 8 completed Luisa horne [facility] 02/16/2024 11:15:46 pneumococcal polysaccharide PPV23 9 completed Luisa horne [facility] 02/16/2024 11:16:02 zoster live 5 completed Luisa horne [facility] 02/16/2024 11:16:15 Past Encounters Encounter ID Performer Location Encounter Start Date Encounter Closed Date Diagnosis/Indication Diagnosis SNOMED-CT Code Diagnosis ICD10 Code Diagnosis Note [id number] CARLOS Ahn at [facility] on [address] [facility], [place] [address] 11/25/2023 11:29:56 12/03/2023 13:47:49 Diabetes mellitus 44866852 E11.9 lantus 20 units QHSjardian ce 10 mg dailymonit or accuchecks Congestive heart failure 04374262 I50.9 Ischemic Cardiomyop athySTEMI May 2022 of LAD s/p PCI and IABP placement then for ADHF.LVEF at time post PCI 20-25% with large apical infarct.He art block s/p dual chamber pacer/ICD. spironolac tone 25 mg dailylasix 80 mg BIDmonitor fluid volume status Peripheral vascular disease 823041697 I73.9 s/p TMAoxycodo ne 5 mg q 6 hours PRNmonitor site for infectionm onitor labsfollow up with vascular as needednot able to bear weight, patient not following precaution s Myocardial infarction 22 372732 I21.9 TAVR for severe aortic stenosis on August 21, 2022.Mild improvemen t in LVEF post TAVR to 25-30%plav ix 75 mg daily Atrial fibrillation 4943 6004 I48.91 continue eliquis 5 mg BIDmetopro lol 25 mg dailymonit or rate Anemia 995718497 D64.9 Normochrom ic, normocytic anemia with hemoglobin of 10, stable without signs of active bleeding.I didi studies, B12, folate within normal limitsmoni tor labs weekly Parkinson's disease 4904 9000 G20.A1 pramipexol e BID Hyperlipidemia 89798144 E78.5 atorvastat in 80 mg daily Neuropathy due to diabetes mellitus 344643040 E11.40 gabapentin 600 mg TIDmonitor pain control Essential hypertension 77188069 I10 amlodipine 5 mg dailymonit or bps [id number] CARLOS SADLER [address] [place] [address] 11/26/2023 09:57:11 12/03/2023 13:57:48 Congestive heart failure 77434419 I50.9 Ischemic Cardiomyop athySTEMI May 2022 of LAD s/p PCI and IABP placement then for ADHF.LVEF at time post PCI 20-25% with large apical infarct.He art block s/p dual chamber pacer/ICD. increase spironolac tone to 50 mg dailyconti nue lasix 80 mg BIDmonitor fluid volume statusadd weights M/W/F- current weight 340 Peripheral vascular disease 788079201 I73.9 s/p TMA- see HPIoxycodo ne 5 mg q 6 hours PRNmonitor site for infectionm onitor labsfollow up with vascular as needednot able to bear weight, patient not following precaution s [id number] Brendan Mcdonald MD [facility] at [facility] on [address] [place] [address] 11/28/2023 17:12:55 12/03/2023 14:48:58 Osteomyelitis of right foot 3101778299 481765 M86.9 ( 3) [employer]ATION [employer] ROCHELLE; Tess Kathleen; Coronary arteriosclerosis 31793914 I25.10 cad; hx mi; lad stent; History of aortic valve replacement 2474764265 100 Z95.4 tavr; cardiology [facility] (10/10/23) history of aortic stenosis, [place] in May 2022 status post PCI of LAD, Mobitz 2 status post PPM, hypertensi on, hyperlipid emia, and PAF on Eliquis and. Chronic sy stolic heart failure 981568692 I50.22 ef 20-25%;gu / lasix 80 mg bid; spironolac tone 50 mg/d;cvs / toprol Er 25 mg/d; norvasc 5 mg/d;endo / Dapagliflo zin 10 mg/d;asymp tomatic; hemodynami remington stable; good rate; clear lungs; good sats; follow; Peripheral vascular disease 109314554 I73.9 noted; Paroxysmal atrial fibrillation 376250925 I48.0 most recently nsr;beta caroline; apixaban Type 2 vega betes mellitus 75963504 E11.21 endo / Dapagliflo zin 10 mg/d; lispro sliding scale; lantus 20 u hs; lipitor 80 mg/d;consi kody adding [id number] 114-245; Chronic ki dney disease stage 2 664399875 N18.2 elmira; ckd; hyperkalem ia; (11/25/23) cr 1.3 egfr 58;; (11/22/23) cr 1.4 egfr 53; calci 9.5; (11/11/23) mag & phos nl;renal us (11/13/23) Normal study of the kidneys.ur ine tp/cr 0.43 (<0.19); ua (11/07/23) neg x 3-5 rbc 1+ prot;no epi; Medication monitoring 39 9233048 Z51.81 cvs / toprol Er 25 mg/d; norvasc 5 mg/d;pulm /endo / Dapagliflo zin 10 mg/d; lispro sliding scale; lantus 20 u hs; lipitor 80 mg/d;heme / plavix 75 mg/d; apixaban 5 mg bid;gi /gu / lasix 80 mg bid; spironolac tone 50 mg/d;neuro / Pramipexol e 0.5 mg bid; oxycodone; gabapentin ; [id number] CARLOS [facility] at [facility] on [address] [place] [address] 12/01/2023 12:56:35 12/03/2023 15:00:56 Congestive heart failure 50197658 I50.9 Ischemic Cardiomyop athySTEMI May 2022 of LAD s/p PCI and IABP placement then for ADHF.LVEF at time post PCI 20-25% with large apical infarct.He art block s/p dual chamber pacer/ICD. currently on spironolac tone 50 mg daily- continue for nowcontinu e lasix 80 mg BIDweights on MWF, was 340 on admit and today weight stated to be 319monitor renal function Peripheral vascular disease 557270205 I73.9 s/p TMA- see HPIpatient has not taken since 11/29, will DC at next visit if not takenmonit or site for infectionm onitor labsfollow up with vascular as needednot able to bear weight, patient not following precaution s Insomnia 872085042 G47.0 9 add melatonin 5 mg qhsmonitor sleep habits [id number] CARLOS [facility] on [address] [place] [address] 12/03/2023 10:38:46 12/08/2023 12:27:21 Congestive heart failure 50274322 I50.9 Ischemic Cardiomyop athySTEMI May 2022 of LAD s/p PCI and IABP placement then for ADHF.LVEF at time post PCI 20-25% with large apical infarct.He art block s/p dual chamber pacer/ICD. currently on spironolac tone 50 mg daily- continue for now, consider decreasing back to 25 mgcontinue lasix 80 mg BIDweights on MW, was 340 on admit and today weight stated to be 317monitor renal function Peripheral vascular disease 073895745 I73.9 s/p TMA- see HPIstill getting oxy once a daymonitor site for infectionm onitor labsfollow up with surgeon today Insomnia 919296916 G47.0 9 continue melatonin 5 mg qhssleepin g better [id number] CARLOS Ahn at [facility] on [address] [place] [address] 12/04/2023 10:37:59 12/08/2023 12:33:26 Congestive heart failure 99314583 I50.9 Ischemic Cardiomyop athySTEMI May 2022 of LAD s/p PCI and IABP placement then for ADHF.LVEF at time post PCI 20-25% with large apical infarct.He art block s/p dual chamber pacer/ICD. decrease spironolac tone back down to 25 mg dailyconti nue lasix 80 mg BIDweights on [facility], was 340 on admit and today weight stated to be 317monitor renal function Peripheral vascular disease 056684186 I73.9 s/p TMA- see HPI- every third stitch removed yesterday, next follow up on 12/17ill getting oxy once a daymonitor site for infectionm onitor labs [id number] CARLOS Ahn at [facility] on [address] [place] [address] 12/08/2023 07:50:35 12/11/2023 15:40:43 Congestive heart failure 88688939 I50.9 Ischemic Cardiomyop athySTEMI May 2022 of LAD s/p PCI and IABP placement then for ADHF.LVEF at time post PCI 20-25% with large apical infarct.He art block s/p dual chamber pacer/ICD. spironolac tone back down to 25 mg dailyconti nue lasix 80 mg BIDweights on MWF, last weights 302, 317, 319, 317 todaymonit or renal function, labs tomorrow Peripheral vascular disease 180241202 I73.9 s/p TMA- see HPI- every third stitch removed yesterday, next follow up on 12/17still getting oxy once a daymonitor site [facility]m [facility] [id number] CARLOS Ahn at [facility] on [address] [place] [address] 12/10/2023 10:47:50 12/15/2023 11:01:33 Congestive heart failure 35368342 I50.9 Ischemic Cardiomyop athySTEMI May 2022 of LAD s/p PCI and IABP placement then for ADHF.LVEF at time post PCI 20-25% with large apical infarct.He art block s/p dual chamber pacer/ICD. DCspironol actone 25 mg now- monitor for increase in fluid volumecont inue lasix 80 mg BIDweights on MWF, last weights 302, 317, 319, 317, 314 today Peripheral vascular disease 162135193 I73.9 has follow up with surgeon today, appreciate recs [id number] CARLOS Ahn at [facility] on [address] [place] [address] 12/11/2023 10:38:51 12/15/2023 11:19:33 Congestive heart failure 09201005 I50.9 Ischemic Cardiomyop athySTEMI May 2022 of LAD s/p PCI and IABP placement then for ADHF.LVEF at time post PCI 20-25% with large apical infarct.He art block s/p dual chamber pacer/ICDc ontinue lasix 80 mg BIDweights on MWF, last weights 302, 317, 319, 317, 314.2 Peripheral vascular disease 868315668 I73.9 see HPIpartial WBATfollow up on [id number] CARLOS Ahn at [facility] on [address] [place] [address] 12/15/2023 10:21:22 12/18/2023 14:57:43 Peripheral vascular disease 697062978 I73.9 see HPIpartial WBATfollow up on 12/17 Congestive heart failure 22940412 I50.9 Ischemic Cardiomyop athySTEMI May 2022 of LAD s/p PCI and IABP placement then for ADHF.LVEF at time post PCI 20-25% with large apical infarct.He art block s/p dual chamber pacer/ICDc ontinue lasix 80 mg BIDweights on MWF, last weight 218 todayno longer on spironolac tone, consider increasing as weight is up 3 lbs [id number] CARLOS Ahn at [facility] on [address] [place] [address] 12/17/2023 10:29:55 12/22/2023 08:38:29 Congestive heart failure 98699136 I50.9 Ischemic Cardiomyop athySTEMI May 2022 of LAD s/p PCI and IABP placement then for ADHF.LVEF at time post PCI 20-25% with large apical infarct.He art block s/p dual chamber pacer/ICDc ontinue lasix 80 mg BIDweights on MWF, last weight 317.4 todayno longer on spironolac tone Peripheral vascular disease 713430871 I73.9 see HPI- now with maceration to incisionad d steri strips to open areascover with DCD dailyparti al WBATfollow up on [id number] CARLOS Ahn at [facility] on [address] [place] [address] 12/18/2023 10:16:15 12/22/2023 08:49:42 Congestive heart failure 07338450 I50.9 Ischemic Cardiomyop athySTEMI May 2022 of LAD s/p PCI and IABP placement then for ADHF.LVEF at time post PCI 20-25% with large apical infarct.He art block s/p dual chamber pacer/ICDc ontinue lasix 80 mg BIDweights on MWF, last weight 317.4 today - same as yesterdayn o longer on spironolac tone Peripheral vascular disease 430632583 I73.9 steri strips to open areascover with DCD dailyparti al WBATfollow up on friday Insomnia 731678862 G47.0 9 continue melatonin 5 mg qhssleepin g better Diabetes mellitus 451341 09 E11.9 lantus 20 units QHSjardian ce 10 mg dailymonit or accuchecks Myocardial infarction 22 836497 I21.9 TAVR for severe aortic stenosis on August 21, 2022.Mild improvemen t in LVEF post TAVR to 25-30%plav ix 75 mg daily Atrial fibrillation 4943 6004 I48.91 continue eliquis 5 mg BIDmetopro lol 25 mg dailymonit or rate Anemia 370871634 D64.9 Normochrom ic, normocytic anemia with hemoglobin of 10, stable without signs of active bleeding.I didi studies, B12, folate within normal limitsmoni tor labs weekly Parkinson's disease 4904 9000 G20.A1 pramipexol e BID Hyperlipidemia 04604223 E78.5 atorvastat in 80 mg daily Neuropathy due to diabetes mellitus 157263582 E11.40 gabapentin 600 mg TID Essential hypertension 93686267 I10 amlodipine 5 mg dailymonit or bps [id number] CARLOS SADLER [address] [place] [address] 12/22/2023 22:32:14 12/26/2023 03:51:34 Congestive heart failure 16969926 I50.9 Ischemic Cardiomyop athySTEMI May 2022 of LAD s/p PCI and IABP placement then for ADHF.LVEF at time post PCI 20-25% with large apical infarct.He art block s/p dual chamber pacer/ICDc ontinue lasix 80 mg BIDweights at home, last weight 317.4no longer on spironolac tone Peripheral vascular disease 853479888 I73.9 see consult sheet from pradeep doe petroleum dressing to area and change daily Insomnia 085028545 G47.0 9 continue melatonin 5 mg qhssleepin g better Diabetes mellitus 470823 09 E11.9 lantus 20 units QHSjardian ce 10 mg dailymonit or accuchecks outpt Myocardial infarction 22 166632 I21.9 TAVR for severe aortic stenosis on August 21, 2022.Mild improvemen t in LVEF post TAVR to 25-30%plav ix 75 mg daily Atrial fibrillation 4943 6004 I48.91 continue eliquis 5 mg BIDmetopro lol 25 mg daily Anemia 718205313 D64.9 Normochrom ic, normocytic anemia with hemoglobin of 10, stable without signs of active bleeding.I didi studies, B12, folate within normal limitsmoni tor labs outpt Parkinson's disease 4904 9000 G20.A1 pramipexol e BID Hyperlipidemia 72816200 E78.5 atorvastat in 80 mg daily Neuropathy due to diabetes mellitus 411039393 E11.40 gabapentin 600 mg TID Essential hypertension 65927435 I10 amlodipine 5 mg daily [id number] CARLOS CORTEZ Anabelle at [facility] on [address] [place] [address] 01/05/2024 08:38:28 01/07/2024 09:15:18 Congestive heart failure 05690328 I50.9 see HPI, exacerbati on due to salt intake and poor adherence to med scheduleIs chemic Cardiomyop athySTEMI May 2022 of LAD s/p PCI and IABP placement then for ADHF.LVEF at time post PCI 20-25% with large apical infarct.He art block s/p dual chamber pacer/ICDf or some reason torsemide 100 mg BID not on med list,add nowweights m/wF Peripheral vascular disease 690386143 I73.9 sp amplimit weight bearing on extremitys ee TAR for wound ordersmoni tor site for infection Insomnia 171734505 G47.0 9 continue melatonin 5 mg qhs Diabetes mellitus 555330 09 E11.9 lantus 20 units QHSjardian ce 10 mg dailymonit or accuchecks Myocardial infarction 22 376843 I21.9 TAVR for severe aortic stenosis on August 21, 2022.Mild improvemen t in LVEF post TAVR to 25-30%plav ix 75 mg daily Atrial fibrillation 4943 6004 I48.91 continue eliquis 5 mg BIDmetopro lol 25 mg dailymonit or ratenow with atrial thrombus Anemia 607596240 D64.9 Normochrom ic, normocytic anemiamoni tor labs Parkinson's disease 4904 9000 G20.A1 pramipexol e BID Hyperlipidemia 99779275 E78.5 atorvastat in 80 mg daily Neuropathy due to diabetes mellitus 246626437 E11.40 gabapentin 600 mg TID Essential hypertension 12676974 I10 amlodipine 5 mg dailymonit or bps [id number] [facility] on [address] [place] [address] 01/07/2024 17:43:10 01/08/2024 18:47:06 History of osteomyelitis 709377891 Z87.39 s/p ( 3) AMPUTATION TRANSMETAT ARSKORI; Shane Kathleenbelen Moreno;wound incomplete ly recovered; debrided in hosp; followed by wound care; sees surgeon 01/09/24 Chronic sy stolic heart failure 949811370 I50.22 chf; hfref; (01/02/24) bnp 1214; (01/02/24) non adherent to diuretics; (12/26/23) pulmonary edema; . Multifocal patchy opacities in the bilateral lung bases noted. -BNP 8,014; Echocardio gram (12/29/23) The apex appears (NEWLY) akinetic with evidence of an (NEW) apical thrombus. EF overall is only mildly reduced may be 45%;; AV mean grad 9; . ;;; ;;;;;;; chf (12/26/23)Af ter arrival he was initially treated with p.o. furosemide 80, and then IV Bumex 2 mg twice daily which were ineffectiv e. Transition to furosemide drip with metolazone on 12/28. Cardiology consulted and further metolazone held. Over the next few days, on the furosemide infusion he did diurese well, with weight down to 319 on 12/31 (down from 330 lbs.). On 12/31 cardiology did transition him back to oral diuretic with trial of torsemide 100 mg daily. Continued close monitoring of daily weights, I's and O's, electrolyt es and renal function. This was effective with additional 1 pound lost overnight into 01/01. Patient will go home on daily torsemide 100 mg daily with continued strict low-sodium diet. ;;;; echo (12/24/21) ;;;; echo (08/22/22) lvh 1.2; left ventricula r ejection fraction is 20-25%. ; bioprosthe tic valve in the aortic position. The mean gradient is 6 mmHg. ;###asympt omatic; hemodynami remington stable; good rate; clear lungs; good sats; follow;### see meds; Coronary arteriosclerosis 33407192 I25.10 cad; hx mi; lad stent;asym ptomatic; hemodynami remington stable; good rate; clear lungs; good sats; follow;gudelia vix beta blockersee meds; Essential hypertension 03048030 I10 118/85;see meds; Left ventr icular thrombus 971726893 I24.81 apical thrombus;e liquis; Aortic valve stenosis 60 228918 I35.0 tavr; cardiology [facility] (10/10/23) history of aortic stenosis, CA in May 2022 status post PCI of LAD, Mobitz 2 status post PPM, hypertensi on, hyperlipid emia, and PAF on Eliquis and. The patient now presented to the hospital in May with progressiv anika significan t chest pain. The patient ruled in for an anterior apical myocardial infarction with ST segment elevations . Emergent cardiac catheteriz ation was performed which showed complete occlusion of the proximal third of the LAD. PCI was performed. The vessel was reopened with poor reperfusio n. Because of the patient's arctic stenosis and relatively large area of myocardium at risk and inferior balloon pump was placed. Over the next day or so the patient developed some pulmonary congestion which was treated with diuresis. D Catheteriz ation also showed severe aortic stenosis. After cardiac surgery consult it was decided that the patient was a good candidate for the TAVR procedure. On 08/21/2022 he underwent a successful TF TAVR with a number 29 mm evolute fracture valve by Dr. English. His postproced ural course was uneventful . Atrial fibrillation 4943 6004 I48.91 beta caroline ; eliquis;se ems RRR on exam Anemia 977894536 D64.9 anemia; (01/02/24) 9.5/29.6; () Hemoglobin 8.8 ; (11/25/23) 8.6/28; (11/22/23) 8.8/;niles ritin (12/27/23) 584; fe% 11; ;; ferritin 492; fe% 21%; b12 689;tp/alb 7.3/3.6; Cardiac pa cemaker in situ 344963928 Z95.0 p-afib; heart block; pacemaker; ekg (11/09/23) Sinus bradycardi a with 1st degree A-V block; Incomplete left bundle branch block; Nonspecifi c T wave abnormalit y;;; Heart block s/p dual chamber pacer/ICD Chronic ki dney disease 680951561 N18.9 elmira; ckd; hyperkalem ia; (01/02/24) cr 1.6; (12/27/23) cr 1.8; (12/27/23) cr 1.3; (12/09/23) cr 1.6; (11/25/23) cr 1.3 egfr 58;; (11/22/23) cr 1.4 egfr 53; calci 9.5; (11/11/23) mag & phos nl;renal us (11/13/23) Normal study of the kidneys.ur ine (12/27/23) s+ proteinuri a; previously tp/cr 0.43 (<0.19); ua (11/07/23) neg x 3-5 rbc 1+ prot;no epi; Medication monitoring 39 9756652 Z51.81 meds /cvs / torpol ER 25 mg/d; norvasc 5 mg/d;pulm /endo / insulin glargine 20 u hs; lispro sliding scale; dapagliflo zin 10 mg/d; lipitor 80 mg/d;heme / plavix 75 mg/d; apixaban 5 mg bid;gi /gu / torsemide 100 mg/d;neuro / melatonin; pramipexol e 0.5 mg bid; oxycodone prn; gabapentin ; Type 2 vega betes mellitus 77787144 E11.21 poor control;se e med listneeds to be tightened; [id number] [facility] [address] [place] [address] 01/09/2024 09:58:45 01/12/2024 14:25:46 Surgical incision wound of skin 3895912920 00 R23.8 surgical appt 01/09 for suture removal and checkup [id number] [facility]OS [facility] on [address] [place] [address] 01/12/2024 08:22:55 01/13/2024 13:53:43 Congestive heart failure 80792046 I50.9 continue torsemide 100 mg BIDweights m//, down to 317monitor weights at home Peripheral vascular disease 430888437 I73.9 see HPI for new wound orderselev ated when able, patient does not comply [id number] CARLOS Ahn at [facility] on [address] [facility] [place], [place] [address] 01/14/2024 07:29:07 01/15/2024 17:51:41 Congestive heart failure 12486117 I50.9 continue torsemide 100 mg BIDweights m/w/F, down to 317monitor weights at home Peripheral vascular disease 423815888 I73.9 see HPI for new wound orderselev ated when able, patient does not comply [id number] CARLOS SADLER [address] [place], [place] [address] 01/28/2024 12:21:49 01/30/2024 12:49:53 Osteomyelitis 60196133 M86.9 * Subacute osteomyeli tis of right footPatien t status post transmetat arsal amputation 11/19/23 with Repeat x-rays suggestive showed recurrent osteomyeli tis, compared to prior MRI with and without contrast completed in October 2023.Foot amputation had been considered but patient is quite opposed due to expected inability to ambulate postproced ure.monito r site for infection, wound [facility] changed to Levofloxac in 750 mg p.o. daily on the day ofdischarg e 01/26 to complete a 6 week course of post-opera tive antibiotic s(until 02/29/2024)- Heel touch weightbear ing only on the right lower extremity- increase oxycodone to 10 mg q 4 hours PRNwound vac as directed Congestive heart failure 38324038 I50.9 He has anemia of chronic disease, hypo proliferat ion reticulocy te count. Required EPO during his stay.-Shira lly adjust medication s-Avoid nephrotoxi ns-Nephrol ogy referral made on discharget orsemide 60 mg BIDfarxiga dailyBNP 3300 inpatient Adult fail ure to thrive syndrome 812514737 R62.7 Pt with non compliance with medication s, diet, care planDiffic ulty with ADLs and navigating his apartmentf ollowing this [facility] at home Anemia 267269658 D64.9 -Iron studies show anemia of chronic disease-If errous sulfate 325 mg daily-B12, Folate WNL-Retic shows hypoprolif eration; 1x EPO on 01/22-Monito r labs weekly-Goa l hemoglobin greater than 7-Advised to follow-up with PCP, consider screening colonoscop y Chronic ki dney disease 822434304 N18.9 Patient presented with Cr 2.1 on admission, likely due to vascular congestion , CHF fluid volume overload. His baseline creatinine appears to be 1.4-1.6mon itor labstorsem michael 60 mg BID Atrial fibrillation 4943 6004 I48.91 continue eliquis 5 mg BIDmetopro lol 25 mg dailyPatie nt's cardiac stent was placed greater than 1 year ago, thus Plavix can be changed to ASA per cardiology discussion with prior hospitalis tASA 81 mg daily Diabetes mellitus 692709 09 E11.9 lantus 50 units twice dailyConti nue moderate dose sliding scale insulin with point-of-c are monitoring with meals and nightly-Co ntinue to titrate insulin regimen to optimize wound healing Peripheral vascular disease 564965606 I73.9 see HPI for new wound orderselev ated when able, patient does not comply Essential hypertension 06141259 I10 amlodipine 5 mg dailymonit or bps Hyperlipidemia 23334114 E78.5 atorvastat in 80 mg daily Neuropathy due to diabetes mellitus 347416866 E11.40 gabapentin 600 mg TIDmonitor pain control [id number] MD SHANTELL Amin [address] [place] [address] 02/02/2024 18:42:43 02/04/2024 09:45:12 Osteomyelitis of right foot [id number] 883112 M86.9 RLE wound was foul smelling and surgery was consulted. After admission blood cultures resulted with polymicrob ial bacteremia and pt was started on Vancomycin and Zosyn and ID was consulted who recommende d RLE BKA. This was discussed with Dr. Kathleen and pt was felt to be a poor candidate for this surgery due to how severely his mobility would be limited. Surgical team ultimately decided to perform a RLE debridemen t and a wound vac was placed. Pt's bacteremia cleared and he was planned for discharge to rehab on Levaquin as per ID; x-rays suggestive showed recurrent osteomyeli tisBone tissue culture growing E. Faecalis, Staph Epidermis, E. Coli which are susceptibl e to Levofloxac in as per ID; Levofloxac in 750 mg p.o. daily on the day of discharge 01/26 to complete a 6 week course of post-opera tive antibiotic s (until 02/29/2024)W ound care: Right TMA site Friday/Fri/Fri day: Wound RN to change wound VAC 3x weekly. If there is a leak, try to identify where and patch with extra drape if able. If vacuum is breached for more than 2 hours and cannot be patched, REMOVE ALL PACKING FROM WOUND and loosely pack with saline moistened gauze and cover with sacral mepilex foam. Notify MD, surgeon, & authorization specialist. If VAC canister is filling with bright red blood, stop VAC and notify MD. Wound vac to -125 mmHg(11/19) AMPUTATION TRANSMETAT ARSKORI; Tess Kathleen; Chronic sy stolic heart failure 012824567 I50.22 chf;most recently CHF exacerbati on. Chest x-ray 01/15 did show mild pulmonary edema, proBNP on arrival >3500.prev iouslyhfre f; (01/02/24) bnp 1214; (01/02/24) non adherent to diuretics; (12/26/23) pulmonary edema; . Multifocal patchy opacities in the bilateral lung bases noted. -BNP 8,014; Echocardio gram (12/29/23) The apex appears (NEWLY) akinetic with evidence of an (NEW) apical thrombus. EF overall is only mildly reduced may be 45%;; AV mean grad 9; . ;;; ;;;;;;; chf (12/26/23)Af ter arrival he was initially treated with p.o. furosemide 80, and then IV Bumex 2 mg twice daily which were ineffectiv e. Transition to furosemide drip with metolazone on 12/28. Cardiology consulted and further metolazone held. Over the next few days, on the furosemide infusion he did diurese well, with weight down to 319 on 12/31 (down from 330 lbs.). On 12/31 cardiology did transition him back to oral diuretic with trial of torsemide 100 mg daily. Continued close monitoring of daily weights, I's and O's, electrolyt es and renal function. This was effective with additional 1 pound lost overnight into 01/01. Patient will go home on daily torsemide 100 mg daily with continued strict low-sodium diet. ;;;; echo (12/24/21) ;;;; echo (08/22/22) lvh 1.2; left ventricula r ejection fraction is 20-25%. ; bioprosthe tic valve in the aortic position. The mean gradient is 6 mmHg. ; ###asympto matic; hemodynami remington stable; good rate; clear lungs; good sats; follow;### see meds; Left ventr icular thrombus 987264699 I24.81 apical thrombus;e liquis; Anemia 855344350 D64.9 anemia;on iron; consider ruling out hemochroma tosis carrier state;(01/02) 9.5/29.6; () Hemoglobin 8.8 ; (11/25/23) 8.6/28; (11/22/23) 8.8/28;niles ritin (12/27/23) 584; fe% 11; ;; ferritin 492; fe% 21%; b12 689;tp/alb 7.3/3.6; Chronic ki dney disease 082489019 N18.9 elmira; ckd; hyperkalem iaaki; ckd; (01/28/24) cr 1.5; egfr 49;previou sly; (01/02/24) cr 1.6; (12/27/23) cr 1.8; (12/27/23) cr 1.3; (12/09/23) cr 1.6; (11/25/23) cr 1.3 egfr 58;; (11/22/23) cr 1.4 egfr 53; calci 9.5; (11/11/23) mag & phos nl;renal us (11/13/23) Normal study of the kidneys.ur ine (12/27/23) s+ proteinuri a; previously tp/cr 0.43 (<0.19); ua (11/07/23) neg x 3-5 rbc 1+ prot;no epi; Type 2 vega betes mellitus 44495993 E11.21 poor control;se e med listneeds to be tightened; SUGAR 128-203;co nsider switching dapagliflo zin to glp1 antagonist d/t hx uti; Aortic valve stenosis 60 555597 I35.0 tavr; cardiology [facility] (10/10/23) history of aortic stenosis, CA in May 2022 status post PCI of LAD, Mobitz 2 status post PPM, hypertensi on, hyperlipid emia, and PAF on Eliquis and. The patient now presented to the hospital in May with progressiv anika significan t chest pain. The patient ruled in for an anterior apical myocardial infarction with ST segment elevations . Emergent cardiac catheteriz ation was performed which showed complete occlusion of the proximal third of the LAD. PCI was performed. The vessel was reopened with poor reperfusio n. Because of the patient's arctic stenosis and relatively large area of myocardium at risk and inferior balloon pump was placed. Over the next day or so the patient developed some pulmonary congestion which was treated with diuresis. D Catheteriz ation also showed severe aortic stenosis. After cardiac surgery consult it was decided that the patient was a good candidate for the TAVR procedure. On 08/21/2022 he underwent a successful TF TAVR with a number 29 mm evolute fracture valve by Dr. English. His postproced ural course was uneventful . Peripheral vascular disease 181942506 I73.9 noted; recommend following w vascular team; Cardiac pa cemaker in situ 762089271 Z95.0 p-afib; heart block; pacemaker; ekg (11/09/23) Sinus bradycardi a with 1st degree A-V block; Incomplete left bundle branch block; Nonspecifi c T wave abnormalit y;;; Heart block s/p dual chamber pacer/ICD Serum ferr itin above reference range 177447494 R77.8 consider genetic testing for hemochroma tosis; fe% not elevated; consider stopping iron; Anticoagulant therapy 18 6491136 Z79.01 aspirin for vascular dz; eliquis for apical thrombus and afib/pacem aldo; Proteinuria 54619176 R80 .9 noted; consider adding yanely or arb; History of amputation of hallux 690146192 Z89.419 previously ( 3) AMPUTATION TRANSMETAT ARSAL; Hever Shanebelen Moreno; Medication monitoring 39 0139284 Z51.81 medication concern: dapagliflo zin in patient w hx uti;; consider switching to glp1 antagonist ;&&&cvs / norvasc 5 mg/d; toprol 25 mg ER/d;pulm /endo / lipitor; dapagliflo zin 10 mg/d;insul in glargine 50 u bid; insulin lispro sliding scale;heme / asa 81 mg/d; eliquis 5 mg bid; ferrous sulf 325 mg/gi /gu / torsemide 60 mg bid;neuro / gabapentin ; melatonin; oxycodone; pramipexol e;id / levaquin 759 mg/d until 02/29/24; [id number] [place] [address] 02/04/2024 12:21:03 02/06/2024 12:53:39 Osteomyelitis 99232715 M86.9 * Subacute osteomyeli tis of right footPatien t status post transmetat arsal amputation 11/19/23 with Repeat x-rays suggestive showed recurrent osteomyeli tis, compared to prior MRI with and without contrast completed in October 2023.Foot amputation had been considered but patient is quite opposed due to expected inability to ambulate postproced ure. IV Unasyn changed to Levofloxac in 750 mg p.o. daily on the day ofdischarg e 01/26 to complete a 6 week course of post-opera tive antibiotic s(until 02/29/2024) -Heel touch weightbear ing only on the right lower extremitys ee HPI, working on stairs Congestive heart failure 76189870 I50.9 repeat BNP tomorrow, appears stabletors emide 60 mg BIDfarxiga dailyBNP 3300 inpatient [id number] CARLOS SADLER [address] [place] [address] 02/06/2024 13:08:18 02/09/2024 15:37:27 Osteomyelitis 05493569 M86.9 * Subacute osteomyeli tis of right footPatien t status post transmetat arsal amputation 11/19/23 with Repeat x-rays suggestive showed recurrent osteomyeli tis, compared to prior MRI with and without contrast completed in October 2023.Foot amputation had been considered but patient is quite opposed due to expected inability to ambulate postproced ure. IV Unasyn changed to Levofloxac in 750 mg p.o. daily on the day ofdischarg e 01/26 to complete a 6 week course of post-opera tive antibiotic s(until 02/29/2024) wound appears to be slowly healing well, continue wound vac Congestive heart failure 01641087 I50.9 see HPI, repeat BNP being done today will result later this eveningtor semide 60 mg BIDfarxiga dailyBNP 3300 inpatient [id number] [place] [address] 02/09/2024 12:09:57 02/11/2024 12:08:12 Congestive heart failure 70016870 I50.9 BNP stable at 899 but with weight gaincontin ue torsemide 60 mg BIDadd metolazone 2.5 mg daily at 6 am, keep short term due to kidneysrep eat CBC BMP BNP fridayfarx iga dailyBNP 899 [id number] [place] [address] 02/11/2024 08:51:28 02/16/2024 15:19:00 Congestive heart failure 76833998 I50.9 last BNP 899continu e torsemide 60 mg BID, give extra dose of 60 mg now x 1continue metolazone 2.5 mg daily at 6 am, keep short term due to kidneysrep eat CBC BMP BNP fridayfarx iga dailyBNP 899US pending today to rule out DVT Peripheral vascular disease 310625199 I73.9 s/p TMAoxycodo ne 5 mg q 6 hours PRNmonitor site for infectionm onitor labsfollow up with vascular as needednot able to bear weight, patient not following precaution s [id number] [place] [address] 02/13/2024 06:03:56 02/18/2024 13:32:16 Congestive heart failure 98142260 I50.9 last BNP 899, repeat pending todayconti nue torsemide 60 mg BIDcontinu e metolazone 2.5 mg daily at 6 am, keep short term due to kidneysrep eat CBC BMP BNP today pendingfar xiga dailyBNP 899US negative for DVTplace labs for repeat Friday, weight down to 314 Peripheral vascular disease 450794872 I73.9 s/p TMAoxycodo ne 5 mg q 6 hours PRNmonitor site for infectionm onitor labsfollow up with vascular as needednot able to bear weight, patient not following precaution s [id number] [place] [address] 02/16/2024 09:40:45 02/18/2024 13:51:05 Congestive heart failure 64940735 I50.9 last BNP 899, repeat labs todayconti nue torsemide 60 mg BIDcontinu e metolazone 2.5 mg daily at 6 am, will stop at next visitrepea t CBC BMP BNP today pendingfar xiga dailyBNP 899weight down to 307 from 314 Peripheral vascular disease 213179052 I73.9 s/p TMA- site appears to be healing very welloxycod one 5 mg q 6 hours PRNmonitor site for infectionm onitor labsfollow up with vascular as needed [id number] [place] [address] 02/17/2024 09:25:24 02/19/2024 12:14:27 Congestive heart failure 20489017 I50.9 repeat BNP 622 from 899continu e torsemide 60 mg BIDDC metolazone 2.5 mg daily at 6 am due to AKIrepeat labs fridayfarx iga dailyweigh t down to 307 from 314 [id number] [place] [address] 02/19/2024 09:48:40 02/24/2024 14:08:29 Sore throat 173956400 J02.9 covid test nowsymptom management Congestive heart failure 43568387 I50.9 BNP improvedco ntinue torsemide 60 mg BIDrepeat labs tomorrowfa rxiga dailyweigh t down to 307 from 314 [id number] [place] [address] 02/20/2024 11:37:12 02/24/2024 14:18:37 Pain in upper limb 771966699 M79.603 add lidocaine patch to left shoulder daily, off qhsmonitor pain controlPT/ OT [id number] [place] [address] 02/23/2024 09:02:36 02/26/2024 18:43:04 Hyponatremia 31109579 E87.1 mild, repeat today STAT Hypokalemia 46884620 E87 .6 add potassium chloride 10 meq BIDrepeat labs stat now [id number] [place] [address] 02/24/2024 10:26:47 02/27/2024 11:32:31 Hyponatremia 04583994 E87.1 mild, REPEAT LABS AT HOME WITH VNA Hypokalemia 28779673 E87 .6 continue potassium chloride 10 meq BIDrepeat labs at home with VNA< PCP to follow Congestive heart failure 56384328 I50.9 BNP improvedco ntinue torsemide 60 mg BIDrepeat labs at homefarxig a dailyweigh t down to 307 from 314 Osteomyelitis 18603198 M 86.9 * Subacute osteomyeli tis of right footPatien t status post transmetat arsal amputation 11/19/23wo und vac to be placed once home Anemia 952387164 D64.9 -Iron studies show anemia of chronic disease-If errous sulfate 325 mg daily-B12, Folate WNL-Retic shows hypoprolif eration; 1x EPO on 01/22 Chronic ki dney disease 304088442 N18.9 His baseline creatinine appears to be 1.4-1.6mon itor labstorsem michael 60 mg BID Atrial fibrillation 1463 6004 I48.91 continue eliquis 5 mg BIDmetopro lol 25 mg dailyPatie nt's cardiac stent was placed greater than 1 year ago, thus Plavix can be changed to ASA per cardiology discussion with prior hospitalis tASA 81 mg daily Diabetes mellitus 203648 09 E11.9 lantus 50 units twice daily Essential hypertension 06742012 I10 amlodipine 5 mg dailymonit or bps Hyperlipidemia 43302321 E78.5 atorvastat in 80 mg daily Neuropathy due to diabetes mellitus 946640206 E11.40 gabapentin 600 mg TIDmonitor pain control [id number] CARLOS SADLER [address] [place], [place] [address] 04/23/2024 12:24:59 04/26/2024 15:15:02 Essential hypertension 94135044 I10 Torsemide was restarted once BP stable,Ent restro dose was lowered to 24-26 mg BID given soft Bps. Chronic ki dney disease 684769293 N18.9 torsemide 20 mg daily inpatient his amlodipine , spironolac tone and metolazone were stopped. If develops volume overload in the future, these diuretics can be readded. Would initiate spironolac tone first and if volume status is refractory to diuretics could give intermitte nt metolazone with close monitoring of his electrolyt es Congestive heart failure 05617121 I50.9 Most recent echo was in December 2023 showing EF 45%. [place] appears akinetic with evidence of apical thrombusHo me regimen includes torsemide, spironolac tone and metolazone . These were held initially due to hypotensio n and ELMIRA.Contin ue torsemide at 20 bid and titrate as needed to home dose of 60mg bid-monito r BP and renal function Diabetes mellitus 580281 09 E11.9 lType 2 diabetes mellitusOn basal/bolu s insulin at home, usual dose Lantus 50 units twice daily.Lant us regimen decreased to 15 units twice daily for low blood sugar levels.Cur rently blood sugars is well controlled -- Continue Lantus 15 units and titrate as needed.-- continue prandial insulin Atrial fibrillation 4943 6004 I48.91 Atrial fibrillati onHistory of atrial fibrillati on.He does have a pacemaker- -Continue Toprol-XL 25mg daily.--co ntinue Apixaban Bacteremia caused by Methicillin resistant Staphylococcus aureus [id number] 0881764 R78.81 infected valveconti nue IV abx until 05/16ID to follow, will call on 05/13 Osteomyelitis 29262665 M 86.9 * Subacute osteomyeli tis of right footPatien t status post transmetat arsal amputation 11/19/23wo und vac // following with weekly labs Anemia 209324035 D64.9 ferrous sulfate 325 mg dailymonit or labs Hyperlipidemia 63797519 E78.5 atorvastat in 80 mg daily Neuropathy due to diabetes mellitus 486896522 E11.40 gabapentin 600 mg TIDmonitor pain control [id number] CARLOS SADLER [address] [place] [address] 04/23/2024 11:50:04 04/27/2024 08:14:58 Neuropathy due to diabetes mellitus 400210407 E11.40 gabapentin 600 mg TIDDC oxycodone, not usingadd tramadol 50 mg q 6 hours PRN x 7 daysmonito r pain control Bacteremia caused by Methicillin resistant Staphylococcus aureus 0560449858 7990897 R78.81 infected valveconti nue IV abx until 05/16ID to follow, will call on 05/13he would like to DC Home with vna to assist Insomnia 083681572 G47.0 9 add traz 50 mg qhs [id number] MD SHANTELL Sigala [address] [place] [address] 04/25/2024 08:40:07 04/27/2024 08:35:58 Sepsis 73923812 A41.89 positive blood cx with question endocardit is on echofollow ed by IDdaptomyc in through /u with ID in placeupdat e with concernsgo al is home with VNA Bacterial endocarditis 094075227 I33.0 see above Chronic ki dney disease 372456899 N18.31 monitor renal function on diuretic for chfavoid nephrotoxi c meds as ablenephro consult prn Congestive heart failure 87852452 I50.22 monitor respirator y status and need to titrate diuretics Diabetes mellitus 258261 09 E13.42 DM with neuropathy and nephropath ycontinue current insulinmon itor blood glucose and need to adjust Atrial fibrillation 4943 6004 I48.0 eliquis 5 mg bidmetopro lol 25 mg qdmonitor for rate control Osteomyelitis 24342026 M 86.171 RLE wound vac in place followed by IDcontinue above Abx Anemia 314395612 D50.8 monitor cbciron studies prn Hyperlipidemia 96095105 E78.2 lipitor 80 mg qdcontinue d Neuropathy due to diabetes mellitus 540397514 E11.40 gabapentin 600 mg TIDmonitor for sx relief Asthenia [id number] R53.1 PT TO eval and treatmonit or fall risk [id number] CARLOS SAD[place]ER [address] [place] [address] 04/28/2024 09:11:12 05/03/2024 12:25:43 Sepsis 15596038 A41.89 lab work in range, no concernsda ptomycin through u with ID in place on [facility] is home with V[facility] Bacterial endocarditis [id number] I33.0 see above Chronic ki dney disease [id number] N18.31 renal function stablemoni tor labs weekly Osteomyelitis 65337612 M 86.171 RLE wound vac in place followed by IDcontinue above Abx Anemia 528555539 D50.8 hgb slightly low 7.6monitor labs weekly Insomnia 594475544 G47.0 9 continue traz 50 mg qhsadd melatonin 10 mg qhsmonitor for improvemen t [id number] CARLOS SADLER [address] [place] [address] 05/03/2024 12:52:00 2024 15:25:29 Sepsis 96550339 A41.89 lab work in range, no concernsda ptomycin through u with ID in place on [facility] is home with VNA - he will consider staying through course of abx Bacterial endocarditis 496367549 I33.0 see above Chronic ki dney disease 760038080 N18.31 renal function stablemoni tor labs weekly Osteomyelitis 55668621 M 86.171 RLE wound vac in place followed by IDcontinue above Abx Anemia 210624753 D50.8 worsening to 7.3add iron studies, cbc, b12, folate on fridaya dd stool guaiac x 3consider PPI [id number] CARLOS SADLER [address] [place] [address] 05/05/2024 10:48:58 05/10/2024 12:21:29 Sepsis 39195877 A41.89 lab work in range, no concernsda ptomycin through with ID in place on 05.13goal is home with VNA - he will consider staying through course of abx Bacterial endocarditis 568627284 I33.0 see above Chronic ki dney disease 755292464 N18.31 renal function stablemoni tor labs weekly - pending today Anemia 117574519 D50.8 slight improvemen t to 7.7add omeprazole 20 mg daily x 6 weekswaiti ng on iron studies, b12, folateposi tive guaiac todayrepea t labs fridaycons ider holding eliquis [id number] CARLOS SADLER [address] [place] [address] 05/10/2024 09:47:22 05/12/2024 14:33:20 Anemia 113609645 D50.8 labile 7.2 on fridayrepe at labs todayomepr azole 20 mg daily x 6 weeksconti nue ferrous sulfate 325 mg daily Sepsis 65892922 A41.89 lab work in range, no concernsda ptomycin through with ID in place on 05.13 [id number] CARLOS SADLER [address] [place] [address] 05/12/2024 07:14:34 05/18/2024 12:53:05 Anemia 873434378 D50.8 improved to 7.9repeat labs fridayomep razole 20 mg daily x 6 weeksconti nue ferrous sulfate 325 mg daily Sepsis 28929813 A41.89 to remove line prior to DC on fridayfoll ow up with ID tomorrow Chronic ki dney disease 488288349 N18.31 slightly elevated [facility] labs friday Bacterial endocarditis 588755365 I33.0 see above [id number] CARLOS SADLER [address] [place] [address] 05/13/2024 11:51:52 05/18/2024 14:48:21 Anemia 917785136 D50.8 improved to 7.9repeat labs fridayomep razole 20 mg daily x 6 weeksconti nue ferrous sulfate 325 mg daily Sepsis 36977996 A41.89 continue IV abx through 05/16 at homechange times to morning so VNA can do at homefollow up with ID Chronic ki dney disease 793396509 N18.31 slightly elevated [facility] friday Bacterial endocarditis 351809907 I33.0 see above Osteomyelitis 82445168 M 86.171 RLE wound vac in place followed by IDcontinue above Abx Essential hypertension 17907261 I10 Torsemide was restarted once BP stable,Ent restro dose was lowered to 24-26 mg BID given soft Bps. Congestive heart failure 24379827 I50.9 Most recent echo was in December 2023 showing EF 45%. [place] appears akinetic with evidence of apical thrombusco ntinue meds Diabetes mellitus 726607 09 E11.9 -- Continue Lantus 15 units-- continue prandial insulin Atrial fibrillation 4943 6004 I48.91 Atrial fibrillati onHistory of atrial fibrillati on.He does have a pacemaker- -Continue Toprol-XL 25mg daily.--co ntinue Apixaban Bacteremia caused by Methicillin resistant Staphylococcus aureus [id number] 9036331 R78.81 infected valveconti nue IV abx until 05/16ID to follow, will call on 05/13 Hyperlipidemia 21951128 E78.5 atorvastat in 80 mg daily Neuropathy due to diabetes mellitus 766302626 E11.40 gabapentin 600 mg TID Health Concerns Section Related Observation LastModified by Organization Detai ls LastModified Time None Recorded Concern Status LastModified by Organization Details LastModified Time None Recorded Advance Directives Directive Y: Payers Encounter Date Sequence Insurance Name Policy Number Policy Savage Covered Member ID Savage Member ID Guarantor Name 05/03/2024 1 [facility] Stephane Guerrero [id number] Stephane Guerrero 05/05/2024 1 [facility] Stephane Guerrero [id number] 1 [employer] Guerrero 05/10/2024 1 [facility] Stephane Guerrero [id number] 1 [employer] Guerrero 05/12/2024 1 [facility] Stephane Guerrero [id number] 1 Stephanecooper Guerrero 05/13/2024 1 [facility] Stephane Guerrero [id number] 1 Stephane Guerrero Notes Date Note Type Note Provider Name and Address Organization Details Recorded Time 05/03/2024 text/html Patient is a 73 yo male admit from hospital after presenting with weakness and fecal incontinence. Found to be hypotensive and bradycardic with positive blood cultures dx with sepsis. Eval by ID with question chronic osteomyelitis as source with echo concerning for endocarditis now on daptomycin through 05/16 Patient has completed PT, he is now only on service for IV meds. He is considering going home, explained that it would be an out of pocket cost at home for him to get help with IV. He now would maybe like to stay but is asking for PT to come back in, they likely cannot but told him I would reach out to head of PT. no other medical concerns at this time. CARLOS [address], [address], [place], [address], [facility] 05/03/2024 13:58:05 05/05/2024 text/html Patient is a 73 yo male admit from hospital after presenting with weakness and fecal incontinence. Found to be hypotensive and bradycardic with positive blood cultures dx with sepsis. Eval by ID with question chronic osteomyelitis as source with echo concerning for endocarditis now on daptomycin through 05/16. Patient with worsening hgb, stool for guaiac ordered and positive this morning. He had lab draw today, with improvement back to 7.7 from 7.3. CARLOS [address], [address], [place], [address], [facility] 05/05/2024 11:09:13 05/10/2024 text/html Patient is a 73 yo male admit from hospital after presenting with weakness and fecal incontinence. Found to be hypotensive and bradycardic with positive blood cultures dx with sepsis. Eval by ID with question chronic osteomyelitis as source with echo concerning for endocarditis now on daptomycin through 05/16. Patient with worsening hgb, stool for guaiac ordered and positive last week. He was started on PPI, repeat labs pending today. He appears stable, he offers no complaints. He is set to stop his IV abx on 05/13, he will have follow up with ID on that day. CARLOS [address], [address], [place], [address], [facility] 05/10/2024 10:07:08 05/12/2024 text/html Patient is a 73 yo male admit seen today for acute rounding visit. Patient admitted from hospital after presenting with weakness and fecal incontinence. Found to be hypotensive and bradycardic with positive blood cultures dx with sepsis. Eval by ID with question chronic osteomyelitis as source with echo concerning for endocarditis now on daptomycin through 05/16. Patient will be done with his IV abx on 05/13, he will have line removed and he is set to DC home this friday. He offers no complaints today, his labs appear improved with hgb back to 7.9. He should continue on PPI and avoid NSAIDs. His K was slightly elevated at 5.2, will repeat friday morning before DC to trend. CARLOS CORTEZ [address] [place] [address], [address], [place], [address], [facility] 05/12/2024 10:05:20 05/13/2024 text/html Patient is a 73 yo male admit seen today for discharge summary visit. Patient admitted from hospital after presenting with weakness and fecal incontinence. Found to be hypotensive and bradycardic with positive blood cultures dx with sepsis. Eval by ID with question chronic osteomyelitis as source with echo concerning for endocarditis now on daptomycin through 05/16. Patient will be going home tomorrow, he will continue IV abx through 05/16 at home. He offers no complaints today, his labs appear improved with hgb back to 7.9. He should continue on PPI and avoid NSAIDs. His K was slightly elevated at 5.2, will repeat friday morning before DC to trend. He was educated to hold his statin through IV tx, no other concerns today. He is ok to DC home tomorrow with meds and services. CARLOS CORTEZ [address] [place] [address], [address], [place], [address], [facility] 05/13/2024 11:55:13
--- OUTSIDE RECORDS SUMMARY | 2024-12-23 17:59 | XMS_ITS | Encounter Summary ---
Author Organization [facility] Address [address] [place] [address] Care Team Providers Care Balance Wheel Motion Inspector Name Role Phone Jessica Feldman MD Primary Care Provider + Encounter Details Date Type Department Care Team (Late st Contact Info) Description 12/02/2024 Lab Requisition [facility] - Main Lab [address] [place] [address] Jessica Feldman MD [address] [address] Heart failure, unspecified (CMS/HCC) Social History Tobacco Use Types Packs/Day Years Used Date Smoking Tobacco: Never Assessed Sex and Gender Information Value Date Recorded Sex Assigned at Not on file Gender Identity Not on file Sexual Orientation Not on file documented as of this encounter Plan of Treatment Not on file documented as of this encounter Procedures Procedure Name Priority Date/Time Associated Diagnosis Comments BASIC METABOLIC PANEL Routine 12/02/2024 5:12 AM EST Heart failure, unspecified (CMS/HCC) documented in this encounter Results * (ABNORMAL) Basic metabolic panel (12/02/2024 5:12 AM EST) Sodium 140 133 - 145 mmol/L LAB CHEMISTRY METHOD 12/02/2024 11:39 AM EST [facility] Potassium 3.9 3.5 - 5.5 mmol/L LAB CHEMISTRY METHOD 12/02/2024 11:39 AM EST [facility] Chloride 103 96 - 110 mmol/L LAB CHEMISTRY METHOD 12/02/2024 11:39 AM EST [facility] CO2 32 21 - 32 mmol/L LAB CHEMISTRY METHOD 12/02/2024 11:39 AM EST [facility] Anion Gap 5 3 - 11 LAB CHEMISTRY METHOD 12/02/2024 11:39 AM [facility] Glucose 176(H) 70 - 100 mg/dL LAB CHEMISTRY METHOD 12/02/2024 11:39 AM [facility] BUN 43(H) 5 - 25 mg/dL LAB CHEMISTRY METHOD 12/02/2024 11:39 AM [facility] Creatinine 1.78(H) 0.70 - 1.30 mg/dL LAB CHEMISTRY METHOD 12/02/2024 11:39 AM [facility] eGFR 40(L) >=60 mL/min/1. 73m2 LAB CHEMISTRY METHOD 12/02/2024 11:39 AM [facility] LAB Comment:Calculation based on the??Chronic Kidney Disease Epidemiology Collaboration (CKD-EPI) equation refit??without adjustment for race. BUN/Creatinine Ratio 24.2 LAB CHEMISTRY METHOD 12/02/2024 11:39 AM [facility] Calcium 9.2 8.5 - 10.5 mg/dL LAB CHEMISTRY METHOD 12/02/2024 11:39 AM [facility] Blood Venous blood specimen / Unknown Venipuncture / Unknown 12/02/2024 5:12 AM EST 12/02/2024 9:47 AM EST Jessica Feldman MD LAB BLOOD ORDERA BLES [facility] [address] [place] [address], documented in this encounter Visit Diagnoses Diagnosis Heart failure, unspecified (CMS/HCC) Heart failure, unspecified documented in this encounter Care Teams Balance Wheel Motion Inspector Relationship Specialty Start Date End Date Jessica Feldman MD [address] [place] [address] PCP - General Family Medicine 10/01/24 documented as of this encounter
--- OUTSIDE RECORDS SUMMARY | 2024-12-23 17:59 | XMS_ITS | Encounter Summary ---
Author Organization [employer] Address [address] [place] [address] Care Team Providers Care Laundry Folder Name Role Phone Jessica Feldman MD Primary Care Provider + Encounter Details Date Type Department Care Team (Late st Contact Info) Description 11/26/2024 Lab Requisition [facility] - Main Lab [address] [facility] [place] [address] Jessica Feldman MD 819 [facility] 1 [place] [address] Heart failure, unspecified (CMS/HCC); Acute on chronic [...] Associated Diagnosis Comments COMPLETE BLOOD COUNT Routine 11/29/2024 7:30 AM EST Heart failure, unspecified (CMS/HCC) 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) B-TYPE NATRIURETIC PEPTIDE Routine 11/29/2024 7:30 AM EST Heart failure, unspecified (CMS/HCC) 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) COMPREHENSIVE METABOLIC PANEL Routine 11/29/2024 7:30 AM EST Heart failure, unspecified (CMS/HCC) 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) documented in this encounter Results * (ABNORMAL) B-type natriuretic peptide (11/29/2024 7:30 AM EST) BNP 162(H) <=100 pcg/mL LAB CHEMISTRY METHOD 11/29/2024 12:40 PM [facility] Blood Venous blood specimen / Unknown Venipuncture / Unknown 11/29/2024 7:30 AM EST 11/29/2024 11:11 AM EST Jessica Feldman MD LAB BLOOD ORDERA BLES [facility] [address] [place] [address], * (ABNORMAL) Comprehensive metabolic panel (11/29/2024 7:30 AM EST) Pathologist [facility] Sodium 142 133 - 145 mmol/L LAB CHEMISTRY METHOD 11/29/2024 12:19 PM [facility] Potassium 4.0 3.5 - 5.5 mmol/L LAB CHEMISTRY METHOD 11/29/2024 12:19 PM [facility] Chloride 105 96 - 110 mmol/L LAB CHEMISTRY METHOD 11/29/2024 12:19 PM [facility] CO2 32 21 - 32 mmol/L LAB CHEMISTRY METHOD 11/29/2024 12:19 PM [facility] Anion Gap 5 3 - 11 LAB CHEMISTRY METHOD 11/29/2024 12:19 PM [facility] Glucose 78 70 - 100 mg/dL LAB CHEMISTRY METHOD 11/29/2024 12:19 PM [facility] BUN 40(H) 5 - 25 mg/dL LAB CHEMISTRY METHOD 11/29/2024 12:19 PM [facility] Creatinine 1.73(H) 0.70 - 1.30 mg/dL LAB CHEMISTRY METHOD 11/29/2024 12:19 PM [facility] eGFR 41(L) >=60 mL/min/1. 73m2 LAB CHEMISTRY METHOD 11/29/2024 12:19 PM [facility] Comment:Calculation based on the??Chronic Kidney Disease Epidemiology Collaboration (CKD-EPI) equation refit??without adjustment for race. BUN/Creatinine Ratio 23.1 LAB CHEMISTRY METHOD 11/29/2024 12:19 PM [facility] Calcium 8.8 8.5 - 10.5 mg/dL LAB CHEMISTRY METHOD 11/29/2024 12:19 PM [facility] AST (SGOT) 12 10 - 42 unit/L LAB CHEMISTRY METHOD 11/29/2024 12:19 PM [facility] ALT (SGPT) 15 10 - 60 unit/L LAB CHEMISTRY METHOD 11/29/2024 12:19 PM [facility] Alkaline Phosphatase 106 42 - 121 unit/L LAB CHEMISTRY METHOD 11/29/2024 12:19 PM [facility] Total Protein 7.1 6.0 - 8.0 g/dL LAB CHEMISTRY METHOD 11/29/2024 12:19 PM [facility] Albumin 3.1(L) 3.2 - 5.0 g/dL LAB CHEMISTRY METHOD 11/29/2024 12:19 PM [facility] Total Bilirubin 0.5 0.0 - 1.4 mg/dL LAB CHEMISTRY METHOD 11/29/2024 12:19 PM [facility] Blood Venous blood specimen / Unknown Venipuncture / Unknown 11/29/2024 7:30 AM EST 11/29/2024 11:11 AM EST Jessica Feldman MD LAB BLOOD ORDERA BLES [facility] [address] [place] [address], * (ABNORMAL) Complete blood count (11/29/2024 7:30 AM EST) WBC 4.0(L) 4.8 - 10.8 K/mcL LAB HEMETOLOGY METHOD 11/29/2024 12:20 PM [facility] RBC 3.20(L) 4.50 - 5.50 M/mcL LAB HEMETOLOGY METHOD 11/29/2024 12:20 PM [facility] Hemoglobin 8.7(L) 13.5 - 17.5 g/dL LAB HEMETOLOGY METHOD 11/29/2024 12:20 PM [facility] Hematocrit 30.1(L) 42.0 - 54.0 % LAB HEMETOLOGY METHOD 11/29/2024 12:20 PM [facility] MCV 94.4 79.0 - 98.0 FL LAB HEMETOLOGY METHOD 11/29/2024 12:20 PM [facility] MCH 27.3 27.0 - 32.0 pcg LAB HEMETOLOGY METHOD 11/29/2024 12:20 PM [facility] MCHC 28.9(L) 32.0 - 37.0 g/dL LAB HEMETOLOGY METHOD 11/29/2024 12:20 PM [facility] RDW 18.1(H) 11.0 - 15.0 % LAB HEMETOLOGY METHOD 11/29/2024 12:20 PM [facility] Platelets 185 130 - 400 K/mcL LAB HEMETOLOGY METHOD 11/29/2024 12:20 PM [facility] MPV 9.6 7.0 - 11.0 FL LAB HEMETOLOGY METHOD 11/29/2024 12:20 PM [facility] NRBC 0.0 <1.0 % LAB HEMETOLOGY METHOD 11/29/2024 12:20 PM [facility] NRBC Absolute 0.00 <0.10 K/mcL LAB HEMETOLOGY METHOD 11/29/2024 12:20 PM [facility] Blood Venous blood specimen / Unknown Venipuncture / Unknown 11/29/2024 7:30 AM EST 11/29/2024 11:11 AM EST Jessica Feldman MD LAB BLOOD ORDERA BLES [facility] [address] [place] [address], documented in this encounter Visit Diagnoses Diagnosis Heart failure, unspecified (CMS/HCC) Heart failure, unspecified 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) documented in this encounter Care Teams Laundry Folder Relationship Specialty Start Date End Date Jessica Feldman MD [address] [address] PCP - General Family Medicine 10/01/24 documented as of this encounter
--- OUTSIDE RECORDS SUMMARY | 2024-12-23 17:59 | XMS_ITS | Encounter Summary ---
Author Organization [employer] Address [address] [place] [address] Care Team Providers Care Device Repair Technician Name Role Phone Jessica Feldman MD Primary Care Provider + Encounter Details Date Type Department Care Team (Late st Contact Info) Description 09/30/[address] [facility] - Main Lab [address] [facility] [place] [address] Jessica Feldman MD 819 [facility] 1 [place] [address] Endocarditis, valve unspecified; Essential (primary) hypertension; Unspecified atrial fibrillation (CMS/HCC); Bacteremia; Anemia, unspecified Social History Tobacco Use Types Packs/Day Years [...] Associated Diagnosis Comments COMPLETE BLOOD COUNT Routine 09/30/2024 6:48 AM EST Endocarditis, valve unspecified Essential (primary) hypertension Unspecified atrial fibrillation (CMS/HCC) Bacteremia Anemia, unspecified HEMOGLOBIN A1C Routine 09/30/2024 6:48 AM EST Endocarditis, valve unspecified Essential (primary) hypertension Unspecified atrial fibrillation (CMS/HCC) Bacteremia Anemia, unspecified COMPREHENSIVE METABOLIC PANEL Routine 09/30/2024 6:48 AM EST Endocarditis, valve unspecified Essential (primary) hypertension Unspecified atrial fibrillation (CMS/HCC) Bacteremia Anemia, unspecified documented in this encounter Results * (ABNORMAL) Hemoglobin A1c (09/30/2024 6:48 AM EST) Hemoglobin A1C 6.8(H) <6.5 % LAB CHEMISTRY METHOD 09/30/2024 2:15 PM [facility] Mean Bld Glu Estim. 148 mg/dL LAB CHEMISTRY METHOD 09/30/2024 2:15 PM [facility] Blood Venous blood specimen / Unknown Venipuncture / Unknown 09/30/2024 6:48 AM EST 09/30/2024 9:07 AM EST Jessica Feldman MD LAB BLOOD ORDERA BLES [facility] [address] [place] [address], * (ABNORMAL) Comprehensive metabolic panel (09/30/2024 6:48 AM EST) Sodium 136 133 - 145 mmol/L LAB CHEMISTRY METHOD 09/30/2024 11:35 AM [facility] Potassium 4.1 3.5 - 5.5 mmol/L LAB CHEMISTRY METHOD 09/30/2024 11:35 AM [facility] Chloride 101 96 - 110 mmol/L LAB CHEMISTRY METHOD 09/30/2024 11:35 AM [facility] CO2 30 21 - 32 mmol/L LAB CHEMISTRY METHOD 09/30/2024 11:35 AM [facility] Anion Gap 5 3 - 11 LAB CHEMISTRY METHOD 09/30/2024 11:35 AM [facility] Glucose 155(H) 70 - 100 mg/dL LAB CHEMISTRY METHOD 09/30/2024 11:35 AM [facility] BUN 57(H) 5 - 25 mg/dL LAB CHEMISTRY METHOD 09/30/2024 11:35 AM [facility] Creatinine 1.72(H) 0.70 - 1.30 mg/dL LAB CHEMISTRY METHOD 09/30/2024 11:35 AM [facility] eGFR 41(L) >=60 mL/min/1. 73m2 LAB CHEMISTRY METHOD 09/30/2024 11:35 AM [facility] Comment:Calculation based on the??Chronic Kidney Disease Epidemiology Collaboration (CKD-EPI) equation refit??without adjustment for race. BUN/Creatinine Ratio 33.1 LAB CHEMISTRY METHOD 09/30/2024 11:35 AM [facility] Calcium 9.3 8.5 - 10.5 mg/dL LAB CHEMISTRY METHOD 09/30/2024 11:35 AM [facility] AST (SGOT) 16 10 - 42 unit/L LAB CHEMISTRY METHOD 09/30/2024 11:35 AM [facility] ALT (SGPT) 20 10 - 60 unit/L LAB CHEMISTRY METHOD 09/30/2024 11:35 AM [facility] Alkaline Phosphatase 96 42 - 121 unit/L LAB CHEMISTRY METHOD 09/30/2024 11:35 AM [facility] Total Protein 7.2 6.0 - 8.0 g/dL LAB CHEMISTRY METHOD 09/30/2024 11:35 AM [facility] Albumin 2.9(L) 3.2 - 5.0 g/dL LAB CHEMISTRY METHOD 09/30/2024 11:35 AM [facility] Total Bilirubin 0.5 0.0 - 1.4 mg/dL LAB CHEMISTRY METHOD 09/30/2024 11:35 AM [facility] Blood Venous blood specimen / Unknown Venipuncture / Unknown 09/30/2024 6:48 AM EST 09/30/2024 9:07 AM EST Jessica Feldman MD LAB BLOOD ORDERA BLES [facility] [address] [place] [address], * (ABNORMAL) Complete blood count (09/30/2024 6:48 AM EST) [facility] WBC 6.6 4.8 - 10.8 K/mcL LAB HEMETOLOGY METHOD 09/30/2024 10:17 AM [facility] RBC 3.10(L) 4.50 - 5.50 M/mcL LAB HEMETOLOGY METHOD 09/30/2024 10:17 AM [facility] Hemoglobin 8.3(L) 13.5 - 17.5 g/dL LAB HEMETOLOGY METHOD 09/30/2024 10:17 AM [facility] Hematocrit 27.4(L) 42.0 - 54.0 % LAB HEMETOLOGY METHOD 09/30/2024 10:17 AM [facility] MCV 89.0 79.0 - 98.0 FL LAB HEMETOLOGY METHOD 09/30/2024 10:17 AM [facility] MCH 26.9(L) 27.0 - 32.0 pcg LAB HEMETOLOGY METHOD 09/30/2024 10:17 AM [facility] MCHC 30.3(L) 32.0 - 37.0 g/dL LAB HEMETOLOGY METHOD 09/30/2024 10:17 AM [facility] RDW 19.0(H) 11.0 - 15.0 % LAB HEMETOLOGY METHOD 09/30/2024 10:17 AM [facility] Platelets 209 130 - 400 K/mcL LAB HEMETOLOGY METHOD 09/30/2024 10:17 AM [facility] MPV 9.3 7.0 - 11.0 FL LAB HEMETOLOGY METHOD 09/30/2024 10:17 AM [facility] NRBC 0.0 <1.0 % LAB HEMETOLOGY METHOD 09/30/2024 10:17 AM [facility] NRBC Absolute 0.00 <0.10 K/mcL LAB HEMETOLOGY METHOD 09/30/2024 10:17 AM EST [facility] Blood Venous blood specimen / Unknown Venipuncture / Unknown 09/30/2024 6:48 AM EST 09/30/2024 9:07 AM EST Jessica Feldman MD LAB BLOOD ORDERA BLES [facility] [address] [place] [address], documented in this encounter Visit Diagnoses Diagnosis Endocarditis, valve unspecified Essential (primary) hypertension Unspecified essential hypertension Unspecified atrial fibrillation (CMS/HCC) Bacteremia Anemia, unspecified documented in this encounter Care Teams Device Repair Technician Relationship Specialty Start Date End Date Jessica Feldman MD [address] [address] PCP - General Family Medicine 10/01/24 documented as of this encounter
--- OUTSIDE RECORDS SUMMARY | 2024-12-23 17:59 | XMS_ITS | Encounter Summary ---
Author Organization [employer] Address [address] [place] [address] Care Team Providers Care Invoice Clerk Name Role Phone Jessica Feldman MD Primary Care Provider + Encounter Details Date Type Department Care Team (Late st Contact Info) Description 12/03/2024 Lab Requisition [facility] - Main Lab [address] [place] [address] Jessica Feldman MD [address] [address] Acute on chronic combined systolic (congestive) and [...] Associated Diagnosis Comments COMPLETE BLOOD COUNT Routine 12/06/2024 7:19 AM EST 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) COMPREHENSIVE METABOLIC PANEL Routine 12/06/2024 7:19 AM EST 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) documented in this encounter Results * (ABNORMAL) Comprehensive metabolic panel (12/06/2024 7:19 AM EST) Sodium 140 133 - 145 mmol/L LAB CHEMISTRY METHOD 12/06/2024 10:[address] [facility] Potassium 3.9 3.5 - 5.5 mmol/L LAB CHEMISTRY METHOD 12/06/2024 10:[address] [facility] Chloride 102 96 - 110 mmol/L LAB CHEMISTRY METHOD 12/06/2024 10:48 AM [facility] CO2 33(H) 21 - 32 mmol/L LAB CHEMISTRY METHOD 12/06/2024 10:48 AM [facility] Anion Gap 5 3 - 11 LAB CHEMISTRY METHOD 12/06/2024 10:48 AM [facility] Glucose 82 70 - 100 mg/dL LAB CHEMISTRY METHOD 12/06/2024 10:48 AM [facility] BUN 47(H) 5 - 25 mg/dL LAB CHEMISTRY METHOD 12/06/2024 10:48 AM [facility] Creatinine 1.73(H) 0.70 - 1.30 mg/dL LAB CHEMISTRY METHOD 12/06/2024 10:48 AM [facility] eGFR 41(L) >=60 mL/min/1. 73m2 LAB CHEMISTRY METHOD 12/06/2024 10:48 AM [facility] Comment:Calculation based on the??Chronic Kidney Disease Epidemiology Collaboration (CKD-EPI) equation refit??without adjustment for race. BUN/Creatinine Ratio 27.2 LAB CHEMISTRY METHOD 12/06/2024 10:48 AM [facility] Calcium 9.3 8.5 - 10.5 mg/dL LAB CHEMISTRY METHOD 12/06/2024 10:48 AM [facility] AST (SGOT) 13 10 - 42 unit/L LAB CHEMISTRY METHOD 12/06/2024 10:48 AM [facility] ALT (SGPT) 16 10 - 60 unit/L LAB CHEMISTRY METHOD 12/06/2024 10:48 AM [facility] Alkaline Phosphatase 104 42 - 121 unit/L LAB CHEMISTRY METHOD 12/06/2024 10:48 AM [facility] Total Protein 7.5 6.0 - 8.0 g/dL LAB CHEMISTRY METHOD 12/06/2024 10:48 AM [facility] Albumin 3.4 3.2 - 5.0 g/dL LAB CHEMISTRY METHOD 12/06/2024 10:48 AM [facility] Total Bilirubin 0.4 0.0 - 1.4 mg/dL LAB CHEMISTRY METHOD 12/06/2024 10:48 AM [facility] Blood Venous blood specimen / Unknown Venipuncture / Unknown 12/06/2024 7:19 AM EST 12/06/2024 9:37 AM EST Jessica Feldman MD LAB BLOOD ORDERA [facility]ES [facility] [address] [place] [address], * (ABNORMAL) Complete blood count (12/06/2024 7:19 AM EST) WBC 3.9(L) 4.8 - 10.8 K/mcL LAB HEMETOLOGY METHOD 12/06/2024 10:26 AM [facility] RBC 3.30(L) 4.50 - 5.50 M/mcL LAB HEMETOLOGY METHOD 12/06/2024 10:26 AM [facility] Hemoglobin 9.3(L) 13.5 - 17.5 g/dL LAB HEMETOLOGY METHOD 12/06/2024 10:26 AM [facility] Hematocrit 31.6(L) 42.0 - 54.0 % LAB HEMETOLOGY METHOD 12/06/2024 10:26 AM [facility] MCV 94.6 79.0 - 98.0 FL LAB HEMETOLOGY METHOD 12/06/2024 10:26 AM [facility] MCH 27.8 27.0 - 32.0 pcg LAB HEMETOLOGY METHOD 12/06/2024 10:26 AM [facility] MCHC 29.4(L) 32.0 - 37.0 g/dL LAB HEMETOLOGY METHOD 12/06/2024 10:[address] [facility] RDW 17.8(H) 11.0 - 15.0 % LAB HEMETOLOGY METHOD 12/06/2024 10:26 AM [facility] Platelets 187 130 - 400 K/mcL LAB HEMETOLOGY METHOD 12/06/2024 10:[address] [facility] MPV 9.7 7.0 - 11.0 FL LAB HEMETOLOGY METHOD 12/06/2024 10:[address] [facility] NRBC 0.0 <1.0 % LAB HEMETOLOGY METHOD 12/06/2024 10:26 AM [facility] NRBC Absolute 0.00 <0.10 K/mcL LAB HEMETOLOGY METHOD 12/06/2024 10:26 AM [facility] Blood Venous blood specimen / Unknown Venipuncture / Unknown 12/06/2024 7:19 AM EST 12/06/2024 9:35 AM EST Jessica Feldman MD LAB BLOOD ORDERA [facility]ES [facility] [address] [place] [address], documented in this encounter Visit Diagnoses Diagnosis 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) documented in this encounter Care Teams Invoice Clerk Relationship Specialty Start Date End Date Jessica Feldman MD [address] [place] [id number] PCP - General Family Medicine 10/01/24 documented as of this encounter
== END 2024-12-23 15:40 | disposition home or self-care (01) ==
PROVIDERS: PCP Internal Medicine
DX: I50.20 Unspecified systolic (congestive) heart failure (principal); I25.10 Atherosclerotic heart disease of native coronary artery without angina pectoris; Z95.810 Presence of automatic (implantable) cardiac defibrillator; I10 Essential (primary) hypertension; I48.0 Paroxysmal atrial fibrillation
CPT/HCPCS: 93010; 99214

== ENCOUNTER → 2024-12-23 14:11 | Outpatient (BNVA) | payer MEDICARE, SELFPAY | PROVIDERS: PCP Internal Medicine | DX: I11.0 Hypertensive heart disease with heart failure (principal); I50.20 Unspecified systolic (congestive) heart failure; I25.10 Atherosclerotic heart disease of native coronary artery without angina pectoris; I48.0 Paroxysmal atrial fibrillation; Z95.810 Presence of automatic (implantable) cardiac defibrillator; R94.31 Abnormal electrocardiogram [ECG] [EKG] | CPT/HCPCS: 93005; 99212 ==

== ENCOUNTER → 2025-01-25 23:59 | Outpatient (BNV) | payer MEDICARE, SELFPAY ==
--- NOTE | 2025-01-26 17:42 | MHC.OFFVIS ---
Intake Visit Reasons: Remote device chk- [place] Allergies No Known Allergies Allergy (Verified 08/09/24 14:17) [facility] Medical History (Updated 12/23/24 @ 14:59 by Jesusita Sandoval [facility]) Amputation below knee Paroxysmal atrial fibrillation ICD (implantable cardioverter-defibrillator) in place CAD (coronary artery disease) Ischemic cardiomyopathy Aortic stenosis Diabetes 1.5, managed as type 1 HTN (hypertension) Surgical History (Reviewed 12/23/24 @ 14:59 by Jesusita Sandoval [facility]) Status post transcatheter aortic valve replacement Stented coronary artery S/P cardiac cath History of ankle surgery Family History Father Pacemaker Mother Diabetes Social History Patient Tobacco Use Status: Former Tobacco user Office Procedures Cardiac Device Check Cardiac Device Check Details: Remote ICD report generated 01/25/2025. ICD function is adequate [id number] Cardiac Interrogation, implant defibrillator w/interim Procedure code (CPT) selection complete Assessment & Plan Assessment & Plan (1) ICD (implantable cardioverter-defibrillator) in place: Comment: Taodyne ICD in place for what appears to be heart block has reduced ejection fraction. Code(s): Z95.810 - Presence of automatic (implantable) cardiac defibrillator Category: Medical Plan: See above Coding Level of Care Code Procedure Only Diagnoses ICD (implantable cardioverter-defibrillator) in place Z95.810 CPT Codes Cardiac Device Check - Cardiac Device 13: [id number] Cardiac Interrogation, implant defibrillator w/interim ([id number])
== END ==
PROVIDERS: PCP Internal Medicine; Visit Provider Internal Medicine Cardiovascular Disease
DX: Z45.02 Encounter for adjustment and management of automatic implantable cardiac defibrillator (principal)
CPT/HCPCS: 93295